=== PATIENT | male | born 1940 | race Caucasian/White ===

== ENCOUNTER 2016-12-14 22:05 | Emergency (ER) | payer MEDICARE, BC ==
[2016-12-14] MEDS ORDERED: LORazepam 2 MG/ML MDV IVPUSH ONE (22:59)
[2016-12-14] MEDS ORDERED: Sodium Chloride 0.9% 10 ML Syringe FLUSH PRN (22:59)
[2016-12-14] MEDS ORDERED: Sodium Chloride 0.9% 1,000 ML IV SCH (23:00)
[2016-12-15 01:30] VITALS: BP 137/75
--- NOTE | 2016-12-15 02:25 | EDM.PDOC ---
ED HPI GENERAL MEDICAL PROBLEM - General Chief Complaint: General Stated Complaint: ILLNESS Time Seen by Provider: 12/14/16 22:42 Source of Information: Reports: Patient History Limitations: Reports: No Limitations - History of Present Illness INITIAL COMMENTS - FREE TEXT/NARRATIVE: This patient has a history of Mnire's disease. For the past couple of hours he has had severe vertigo anytime he sits up or moves his head. He does note that he get bit by a tick a few days ago. If he lies down and keeps quiet the vertigo goes away - Related Data Allergies Allergy/AdvReac Type Severity Reaction Status Date / Time No Known Allergies Allergy Verified 12/14/16 22:11 Home Meds: Home Meds Pramipexole [Mirapex] 0.5 mg PO BID 05/19/13 [History] Albuterol [Ventolin HFA] 2 puff INH Q4H PRN 11/03/13 [History] Docusate Sodium/Sennosides [Senna Plus Tablet] 1 each PO BID PRN 11/03/13 [ History] HCTZ/Triamterene [Dyazide 25-37.5 MG] 1 cap PO DAILY 11/03/13 [History] Tiotropium [Spiriva HandiHaler] 1 cap IH DAILY 09/18/15 [History] Benzonatate [Tessalon Perles] 100 mg PO DAILY PRN 12/13/15 [History] Budesonide/Formoterol Fumarate [Symbicort 160-4.5 Mcg Inhaler] 1 puff INH DAILY 12/14/16 [History] Meclizine [Antivert] 25 mg PO Q6H PRN 12/14/16 [History] Past Medical History HEENT History: Reports: Cataract, Impaired Vision Cardiovascular History: Reports: High Cholesterol, Hypertension, SOB on Exertion Other Cardiovascular History: blood clot removed from leg -football injury Respiratory History: Reports: Bronchitis, Recurrent, COPD, Sleep Apnea, SOB Gastrointestinal History: Reports: GI Bleed, Hemorrhoids Genitourinary History: Reports: Prostate Disorder Musculoskeletal History: Reports: Fracture Other Musculoskeletal History: restless leg syndrome Neurological History: Reports: Concussion, Vertigo Other Neuro History: meneires, restless leg syndrome Psychiatric History: Reports: Anxiety Hematologic History: Reports: Blood Transfusion(s) Oncologic (Cancer) History: Reports: Prostate - Infectious Disease History Infectious Disease History: Reports: Chicken Pox - Past Surgical History HEENT Surgical History: Reports: Cataract Surgery GI Surgical History: Reports: Colonoscopy, Hernia, Inguinal Male Surgical History: Reports: Prostatectomy Social & Family History - Family History Family Medical History: Unobtainable - Tobacco Use Smoking Status *Q: Former Smoker Years of Tobacco use: 40 Packs/Tins Daily: 2 Used Tobacco, but Quit: Yes Month Tobacco Last Used: unknown Second Hand Smoke Exposure: No - Caffeine Use Caffeine Use: Reports: None - Alcohol Use Days Per Week of Alcohol Use: 0 - Recreational Drug Use Recreational Drug Use: No ED ROS GENERAL - Review of Systems Review Of Systems: ROS reveals no pertinent complaints other than HPI. ED EXAM, GENERAL - Physical Exam Exam: See Below Exam Limited By: No Limitations General Appearance: Alert, WD/WN, Moderate Distress (The patient was initially vomiting repeatedly when he came to the ER) Eye Exam: Bilateral Eye: Normal Inspection, Nystagmus (No nystagmus was seen) Ears: Normal TMs Nose: Normal Inspection Throat/Mouth: Normal Inspection, Normal Oropharynx Head: Atraumatic Neck: Normal Inspection Respiratory/Chest: Lungs Clear Cardiovascular: Regular Rate, Rhythm Neurological: Alert, Oriented, CN II-XII Intact, Normal Cognition, No Motor/ Sensory Deficits Psychiatric: Normal Affect Skin Exam: Warm, Dry Course - Vital Signs Last Recorded V/S: Last Vital Signs Temp 35.7 C 12/15/16 01:20 Pulse 63 12/15/16 01:20 Resp 16 12/15/16 01:20 BP 137/75 12/15/16 01:20 Pulse Ox 92 L 12/15/16 01:20 - Orders/Labs/Meds Orders: Active Orders 24 hr Category Date Time Status EKG Documentation Completion [RC] ASDIRECTED Care 12/14/16 23:11 Active EHRLICHIA CHAFFEENSIS, IGG&IGM [REF] Stat Lab 12/14/16 23:18 Received LYME AB SCREEN RFLX [REF] Routine Lab 12/14/16 23:18 Received Saline Lock Insert [OM.PC] Urgent Oth 12/14/16 22:55 Ordered EKG 12 Lead [EK] Urgent Ther 12/14/16 23:11 Ordered Labs: Laboratory Tests 12/14/16 12/14/16 Range/Units 22:54 23:18 WBC 8.2 (4.5-11.0) K/uL RBC 3.86 L (4.30-5.90) M/uL Hgb 13.1 (12.0-15.0) g/dL Hct 37.2 L (40.0-54.0) % MCV 96 (80-98) fL MCH 34 H (27-31) pg MCHC 35 (32-36) % Plt Count 156 (150-400) K/uL Neut % (Auto) 74 H (36-66) % Lymph % (Auto) 16 L (24-44) % [place] % (Auto) 7 H (2-6) % Eos % (Auto) 3 (2-4) % Baso % (Auto) 1 (0-1) % Sodium 141 (140-148) mmol/L Potassium 3.2 L (3.6-5.2) mmol/L Chloride 105 (100-108) mmol/L Carbon Dioxide 29 (21-32) mmol/L Anion Gap 10.2 (5.0-14.0) mmol/L BUN 27 H (7-18) mg/dL Creatinine 1.7 H (0.8-1.3) mg/dL Est Cr Clr Drug Dosing 38.12 mL/min Estimated GFR (MDRD) 40 L (>60) Glucose 149 H (74-106) mg/dL Calcium 8.5 (8.5-10.1) mg/dL Meds: Medications Discontinued Medications Generic Name Dose Route Start Last Admin Trade Name Freq PRN Reason Stop Dose Admin Sodium Chloride 1,000 mls @ 999 mls/hr 12/14/16 23:00 12/14/16 23:28 Normal Saline IV 999 mls/hr ASDIRECTED PINEDA Administration Lorazepam 1 mg 12/14/16 22:59 12/14/16 23:34 Ativan IVPUSH 12/14/16 23:00 1 mg ONETIME ONE Administration Sodium Chloride 10 ml 12/14/16 22:59 12/14/16 23:26 Saline Flush FLUSH 10 ml ASDIRECTED PRN Administration Keep Vein Open - Re-Assessments/Exams Free Text/Narrative Re-Assessment/Exam: 12/15/16 05:04 An IV was established and he received Ativan 1 mg. He also received 1 L IV normal saline. The plan was to give him some Ativan and then do a Birney Hallpike maneuver. However the emergency department got very busy with a critical patient and by the time I got back to this patient he was completely asymptomatic and ready to go home Departure - Departure Time of Disposition: 02:23 Disposition: Home, Self-Care 01 Condition: Fair Clinical Impression: Benign paroxysmal positional vertigo - Discharge Information Instructions: Vertigo, Meniere Disease Referrals: Brett Solis Sr, MD [Primary Care Provider] - Forms: ED Department Discharge Additional Instructions: If you have more vertigo then take the lorazepam 1 mg one half or one tablet every 4-6 hours. This medication can cause sedation so use with caution. Don't drink alcohol with it. #10 tablets dispensed If you have more episodes like this and see your family doctor or return to the ER - My Orders Last 24 Hours: My Active Orders 12/14/16 22:55 Saline Lock Insert [OM.PC] Urgent 12/14/16 23:11 EKG Documentation Completion [RC] ASDIRECTED EKG 12 Lead [EK] Urgent 12/14/16 23:18 EHRLICHIA CHAFFEENSIS, IGG&IGM [REF] Stat LYME AB SCREEN RFLX [REF] Routine - Assessment/Plan Last 24 Hours: My Active Orders 12/14/16 22:55 Saline Lock Insert [OM.PC] Urgent 12/14/16 23:11 EKG Documentation Completion [RC] ASDIRECTED EKG 12 Lead [EK] Urgent 12/14/16 23:18 EHRLICHIA CHAFFEENSIS, IGG&IGM [REF] Stat LYME AB SCREEN RFLX [REF] Routine
== END 2016-12-15 02:39 | disposition home or self-care (01) ==
LOC: JP.ED 22:05
DX: H81.10 Benign paroxysmal vertigo, unspecified ear (principal); I10 Essential (primary) hypertension; E78.00 Pure hypercholesterolemia, unspecified; J44.9 Chronic obstructive pulmonary disease, unspecified; F41.9 Anxiety disorder, unspecified; Z98.49 Cataract extraction status, unspecified eye; Z98.890 Other specified postprocedural states; Z79.899 Other long term (current) drug therapy; Z87.891 Personal history of nicotine dependence
CPT/HCPCS: 36415; 80048; 85025; 86618; 86666; 93005; 96361; 96374; 99284; J2060; J7040; J7050; 93010; 99283

== ENCOUNTER 2016-12-22 00:02 | Emergency (ER) | payer MEDICARE, BC ==
[2016-12-22 00:23] VITALS: BP 129/85
[2016-12-22] MEDS ORDERED: Sodium Chloride 0.9% 1,000 ML IV STA (00:50)
[2016-12-22] MEDS ORDERED: Sodium Chloride 0.9% 10 ML Syringe FLUSH PRN (00:50)
--- NOTE | 2016-12-22 00:56 | EDM.PDOC ---
ED HPI GENERAL MEDICAL PROBLEM - General Chief Complaint: Respiratory Problem Stated Complaint: DIFFICULTY BREATHING Time Seen by Provider: 12/22/16 00:45 Source of Information: Reports: Patient, RN Notes Reviewed History Limitations: Reports: No Limitations - History of Present Illness INITIAL COMMENTS - FREE TEXT/NARRATIVE: 76-year-old gentleman presents emergency department day complaint of difficulty breathing and abdominal pain, less with 24 hours he feels he has been constipated felt feverish and diaphoretic earlier today abdominal pain feels full the point where he cannot take a deep breath, denies pain Pain Score (Numeric/FACES): 0 - Related Data Allergies Allergy/AdvReac Type Severity Reaction Status Date / Time No Known Allergies Allergy Verified 12/22/16 00:31 Home Meds: Home Meds Pramipexole [Mirapex] 0.5 mg PO BID 05/19/13 [History] Albuterol [Ventolin HFA] 2 puff INH Q4H PRN 11/03/13 [History] Docusate Sodium/Sennosides [Senna Plus Tablet] 1 each PO BID PRN 11/03/13 [ History] HCTZ/Triamterene [Dyazide 25-37.5 MG] 1 cap PO DAILY 11/03/13 [History] Tiotropium [Spiriva HandiHaler] 1 cap IH DAILY 09/18/15 [History] Benzonatate [Tessalon Perles] 100 mg PO DAILY PRN 12/13/15 [History] Budesonide/Formoterol Fumarate [Symbicort 160-4.5 Mcg Inhaler] 1 puff INH DAILY 12/14/16 [History] Meclizine [Antivert] 25 mg PO Q6H PRN 12/14/16 [History] Potassium Chloride [Potassium Chloride] 20 meq PO DAILY 12/22/16 [History] Past Medical History HEENT History: Reports: Cataract, Impaired Vision Cardiovascular History: Reports: High Cholesterol, Hypertension, SOB on Exertion Other Cardiovascular History: blood clot removed from leg -football injury Respiratory History: Reports: Bronchitis, Recurrent, COPD, Sleep Apnea, SOB Gastrointestinal History: Reports: GI Bleed, Hemorrhoids Genitourinary History: Reports: Prostate Disorder Musculoskeletal History: Reports: Fracture Other Musculoskeletal History: restless leg syndrome Neurological History: Reports: Concussion, Vertigo Other Neuro History: meneires, restless leg syndrome Psychiatric History: Reports: Anxiety Hematologic History: Reports: Blood Transfusion(s) Oncologic (Cancer) History: Reports: Prostate - Infectious Disease History Infectious Disease History: Reports: Chicken Pox, Measles - Past Surgical History HEENT Surgical History: Reports: Cataract Surgery GI Surgical History: Reports: Colonoscopy, Hernia, Inguinal Male Surgical History: Reports: Prostatectomy Dermatological Surgical History: Reports: None Social & Family History - Family History Family Medical History: Unobtainable - Tobacco Use Smoking Status *Q: Never Smoker Years of Tobacco use: 40 Packs/Tins Daily: 2 Used Tobacco, but Quit: Yes Month Tobacco Last Used: unknown Second Hand Smoke Exposure: No - Caffeine Use Caffeine Use: Reports: None - Alcohol Use Days Per Week of Alcohol Use: 0 - Recreational Drug Use Recreational Drug Use: No ED ROS GENERAL - Review of Systems Review Of Systems: See Below Constitutional: Reports: Diaphoresis. Denies: Fever HEENT: Reports: No Symptoms Respiratory: Reports: Shortness of Breath Cardiovascular: Reports: No Symptoms GI/Abdominal: Reports: Abdominal Pain, Constipation. Denies: Nausea, Vomiting : Reports: No Symptoms Musculoskeletal: Reports: No Symptoms ED EXAM, GENERAL - Physical Exam Exam: See Below Exam Limited By: No Limitations General Appearance: Alert, WD/WN, No Apparent Distress Neck: Normal Inspection, Supple, Non-Tender, Full Range of Motion Respiratory/Chest: No Respiratory Distress, Lungs Clear, Normal Breath Sounds, No Accessory Muscle Use Cardiovascular: Regular Rate, Rhythm, No Murmur GI/Abdominal: Normal Bowel Sounds, Soft, Tender (Periumbilical pain) Course - Vital Signs Last Recorded V/S: Last Vital Signs Temp 95.8 F 12/22/16 00:21 Pulse 61 12/22/16 00:21 Resp 18 12/22/16 00:21 BP 129/85 12/22/16 00:21 Pulse Ox 94 L 12/22/16 00:46 - Orders/Labs/Meds Orders: Active Orders 24 hr Category Date Time Status Peripheral IV Care [RC] . DIRECTED Care 12/22/16 00:51 Active Abdomen Pelvis wo Cont [CT] Urgent Exams 12/22/16 00:50 Taken Sodium Chloride 0.9% [Saline Flush] Med 12/22/16 00:50 Active 10 ml FLUSH ASDIRECTED PRN Peripheral IV Insertion Adult [OM.PC] Urgent Oth 12/22/16 00:50 Ordered Medication Orders Sodium Chloride (Saline Flush) 10 ml FLUSH ASDIRECTED PRN PRN Reason: Keep Vein Open Last Admin: 12/22/16 01:09 Dose: 10 ml Labs: Laboratory Tests 12/22/16 12/22/16 12/22/16 Range/Units 01:02 01:02 01:02 WBC 8.3 (4.5-11.0) K/uL RBC 4.05 L (4.30-5.90) M/uL Hgb 13.6 (12.0-15.0) g/dL Hct 39.4 L (40.0-54.0) % MCV 97 (80-98) fL MCH 34 H (27-31) pg MCHC 35 (32-36) % Plt Count 180 (150-400) K/uL Neut % (Auto) 79 H (36-66) % Lymph % (Auto) 11 L (24-44) % [place] % (Auto) 8 H (2-6) % Eos % (Auto) 1 L (2-4) % Baso % (Auto) 0 (0-1) % D-Dimer, Quantitative (0.0-400.0) ng/mL Sodium 138 L (140-148) mmol/L Potassium 4.0 (3.6-5.2) mmol/L Chloride 104 (100-108) mmol/L Carbon Dioxide 27 (21-32) mmol/L Anion Gap 11.0 (5.0-14.0) mmol/L BUN 37 H (7-18) mg/dL Creatinine 1.6 H (0.8-1.3) mg/dL Est Cr Clr Drug Dosing 40.51 mL/min Estimated GFR (MDRD) 42 L (>60) Glucose 148 H (74-106) mg/dL Lactic Acid 1.5 (0.4-2.0) mmol/L Calcium 8.6 (8.5-10.1) mg/dL Total Bilirubin 0.3 (0.2-1.0) mg/dL AST 17 (15-37) U/L ALT 26 (12-78) U/L Alkaline Phosphatase 74 (46-116) U/L Troponin I < 0.017 (0.000-0.056) ng/mL Total Protein 7.4 (6.4-8.2) g/dL Albumin 3.2 L (3.4-5.0) g/dL Globulin 4.2 H (2.3-3.5) g/dL Albumin/Globulin Ratio 0.8 L (1.2-2.2) Lipase 155 (73-393) U/L Urine Color Urine Appearance Urine pH (4.5-8.0) Ur Specific [place] (1.008-1.030) Urine Protein (NEGATIVE) mg/dL Urine Glucose (UA) (NEGATIVE) mg/dL Urine Ketones (NEGATIVE) mg/dL Urine Occult Blood (NEGATIVE) Urine Nitrite (NEGAITVE) Urine Bilirubin (NEGATIVE) Urine Urobilinogen (NORMAL) mg/dL Ur Leukocyte Esterase (NEGATIVE) Urine RBC (0-5) Urine WBC (0-5) Ur Epithelial Cells Amorphous Sediment Urine Bacteria Urine Mucus 12/22/16 12/22/16 Range/Units 01:30 01:32 WBC (4.5-11.0) K/uL RBC (4.30-5.90) M/uL Hgb (12.0-15.0) g/dL Hct (40.0-54.0) % MCV (80-98) fL MCH (27-31) pg MCHC (32-36) % Plt Count (150-400) K/uL Neut % (Auto) (36-66) % Lymph % (Auto) (24-44) % [place] % (Auto) (2-6) % Eos % (Auto) (2-4) % Baso % (Auto) (0-1) % D-Dimer, Quantitative 407 H (0.0-400.0) ng/mL Sodium (140-148) mmol/L Potassium (3.6-5.2) mmol/L Chloride (100-108) mmol/L Carbon Dioxide (21-32) mmol/L Anion Gap (5.0-14.0) mmol/L BUN (7-18) mg/dL Creatinine (0.8-1.3) mg/dL Est Cr Clr Drug Dosing mL/min Estimated GFR (MDRD) (>60) Glucose (74-106) mg/dL Lactic Acid (0.4-2.0) mmol/L Calcium (8.5-10.1) mg/dL Total Bilirubin (0.2-1.0) mg/dL AST (15-37) U/L ALT (12-78) U/L Alkaline Phosphatase (46-116) U/L Troponin I (0.000-0.056) ng/mL Total Protein (6.4-8.2) g/dL Albumin (3.4-5.0) g/dL Globulin (2.3-3.5) g/dL Albumin/Globulin Ratio (1.2-2.2) Lipase (73-393) U/L Urine Color Yellow Urine Appearance Clear Urine pH 7.0 (4.5-8.0) Ur Specific [place] 1.010 (1.008-1.030) Urine Protein Negative (NEGATIVE) mg/dL Urine Glucose (UA) Normal (NEGATIVE) mg/dL Urine Ketones Negative (NEGATIVE) mg/dL Urine Occult Blood Negative (NEGATIVE) Urine Nitrite Negative (NEGAITVE) Urine Bilirubin Negative (NEGATIVE) Urine Urobilinogen Normal (NORMAL) mg/dL Ur Leukocyte Esterase Negative (NEGATIVE) Urine RBC 0-5 (0-5) Urine WBC 0-5 (0-5) Ur Epithelial Cells Rare Amorphous Sediment Not seen Urine Bacteria Rare Urine Mucus Not seen Meds: Medications Generic Name Dose Route Start Last Admin Trade Name Freq PRN Reason Stop Dose Admin Sodium Chloride 10 ml 12/22/16 00:50 12/22/16 01:09 Saline Flush FLUSH 10 ml ASDIRECTED PRN Administration Keep Vein Open Discontinued Medications Generic Name Dose Route Start Last Admin Trade Name Freq PRN Reason Stop Dose Admin Sodium Chloride 1,000 mls @ 500 mls/hr 12/22/16 00:50 12/22/16 01:07 Normal Saline IV 12/22/16 02:49 500 mls/hr .BOLUS STA Administration Departure - Departure Time of Disposition: 03:35 Disposition: Home, Self-Care 01 Condition: Good Clinical Impression: SOB (shortness of breath) - Discharge Information Forms: ED Department Discharge Additional Instructions: Continue with your regular medications, Please followup with your primary care provider in 3-5 days if not better, please call return to the emergency department with worsening of symptoms. - My Orders Last 24 Hours: My Active Orders 12/22/16 00:50 Abdomen Pelvis wo Cont [CT] Urgent Sodium Chloride 0.9% [Saline Flush] 10 ml FLUSH ASDIRECTED PRN Peripheral IV Insertion Adult [OM.PC] Urgent 12/22/16 00:51 Peripheral IV Care [RC] . DIRECTED - Assessment/Plan Last 24 Hours: My Active Orders 12/22/16 00:50 Abdomen Pelvis wo Cont [CT] Urgent Sodium Chloride 0.9% [Saline Flush] 10 ml FLUSH ASDIRECTED PRN Peripheral IV Insertion Adult [OM.PC] Urgent 12/22/16 00:51 Peripheral IV Care [RC] . DIRECTED Plan: Assessment Acuity = acute Site and laterality = abdominal pain with shortness of breath Etiology = unclear etiology Manifestations = none Location of injury = Home Lab values = CBC within normal limits creatinine elevated 1.6 chronic renal failure stage G IIIB albumin low at 2.2 consistent hypoalbuminemia, troponin was negative, d-dimer is negative, CT scan of the abdomen shows no acute process lung windows were clear Plan I did review lab work with him as well as image studies results of follow-up with primary care 3-5 days for reevaluation Patient was in agreement with the plan all questions were answered, they were instructed to return to the emergency department or call for worsening symptoms. This note was dictated using [employer] voice recognition software please call with any questions.
== END 2016-12-22 04:13 | disposition home or self-care (01) ==
LOC: JP.ED 00:02
DX: R06.02 Shortness of breath (principal); H54.7 Unspecified visual loss; E78.00 Pure hypercholesterolemia, unspecified; I10 Essential (primary) hypertension; J44.9 Chronic obstructive pulmonary disease, unspecified; Z79.899 Other long term (current) drug therapy; Z98.49 Cataract extraction status, unspecified eye
CPT/HCPCS: 36415; 74176; 80053; 81001; 83605; 83690; 84484; 85025; 85379; 99285; J7040; J7050; 99284

== ENCOUNTER 2016-12-30 02:33 | Emergency (ER) | payer MEDICARE, BC ==
[2016-12-30 03:00] VITALS: BP 142/90
[2016-12-30] MEDS ORDERED: LORazepam 1 MG Tab PO ONE (03:11)
--- NOTE | 2016-12-30 03:16 | EDM.PDOC ---
[id number] 4d LEG PAIN IN BOTH LEGS Time Seen by Provider: 12/30/16 02:55 Source of Information: Reports: Patient, Family History Limitations: Reports: No Limitations - History of Present Illness INITIAL COMMENTS - FREE TEXT/NARRATIVE: 76-year-old male is in tonight because he can't sleep, his legs are restless. He also feels like he can't take a deep breath. No fevers or chills, no cough, he was very active today. He has come in for restless legs in the past and was given gabapentin but I can't get him to say for sure whether he is still taking that or not, it is not on his list of medications. Less than 2 weeks ago he fell off his lawnmower and has been going to the chiropractor for some backache. Onset: Unknown/Unsure Severity: Mild Associated Symptoms: Reports: Shortness of Breath. Denies: Chest Pain, Cough, Headaches, Nausea/Vomiting, Weakness - Related Data Allergies Allergy/AdvReac Type Severity Reaction Status Date / Time No Known Allergies Allergy Verified 12/30/16 02:49 Home Meds: Home Meds Pramipexole [Mirapex] 1.5 mg PO BID 05/19/13 [History] Albuterol [Ventolin HFA] 2 puff INH Q4H PRN 11/03/13 [History] Docusate Sodium/Sennosides [Senna Plus Tablet] 1 each PO BID PRN 11/03/13 [ History] HCTZ/Triamterene [Dyazide 25-37.5 MG] 1 cap PO DAILY 11/03/13 [History] Tiotropium [Spiriva HandiHaler] 1 cap IH DAILY 09/18/15 [History] Benzonatate [Tessalon Perles] 100 mg PO DAILY PRN 12/13/15 [History] Budesonide/Formoterol Fumarate [Symbicort 160-4.5 Mcg Inhaler] 1 puff INH DAILY 12/14/16 [History] Meclizine [Antivert] 25 mg PO QID 12/14/16 [History] Potassium Chloride [Potassium Chloride] 20 meq PO DAILY 12/22/16 [History] Ibuprofen 200 mg PO TID 12/30/16 [History] Leuprolide [Lupron Depot 3-Month] 22.5 mg IM ASDIRECTED 12/30/16 [History] Past Medical History HEENT History: Reports: Cataract, Impaired Vision Cardiovascular History: Reports: High Cholesterol, Hypertension, SOB on Exertion Other Cardiovascular History: blood clot removed from leg -football injury Respiratory History: Reports: Bronchitis, Recurrent, COPD, Sleep Apnea, SOB Gastrointestinal History: Reports: GI Bleed, Hemorrhoids Genitourinary History: Reports: Prostate Disorder Musculoskeletal History: Reports: Fracture Other Musculoskeletal History: restless leg syndrome Neurological History: Reports: Concussion, Vertigo Other Neuro History: meneires, restless leg syndrome Psychiatric History: Reports: Anxiety Hematologic History: Reports: Blood Transfusion(s) Oncologic (Cancer) History: Reports: Prostate - Infectious Disease History Infectious Disease History: Reports: Chicken Pox, Measles - Past Surgical History HEENT Surgical History: Reports: Cataract Surgery, Other (See Below) Other HEENT Surgeries/Procedures: ear surgery GI Surgical History: Reports: Colonoscopy, Hernia, Inguinal Male Surgical History: Reports: Prostatectomy Dermatological Surgical History: Reports: None Social & Family History - Family History Family Medical History: Unobtainable - Tobacco Use Smoking Status *Q: Never Smoker Years of Tobacco use: 40 Packs/Tins Daily: 2 Used Tobacco, but Quit: Yes Month Tobacco Last Used: unknown Second Hand Smoke Exposure: No - Caffeine Use Caffeine Use: Reports: None - Alcohol Use Days Per Week of Alcohol Use: 0 - Recreational Drug Use Recreational Drug Use: No ED ROS GENERAL - Review of Systems Review Of Systems: See Below Constitutional: Denies: Fever, Chills Respiratory: Reports: Shortness of Breath. Denies: Cough Cardiovascular: Denies: Chest Pain, Syncope GI/Abdominal: Denies: Abdominal Pain, Nausea, Vomiting Musculoskeletal: Reports: Back Pain Neurological: Denies: Headache ED EXAM, GENERAL - Physical Exam Exam: See Below Exam Limited By: No Limitations General Appearance: Alert, Anxious Eye Exam: Bilateral Eye: EOMI Respiratory/Chest: No Respiratory Distress, Lungs Clear Cardiovascular: Regular Rate, Rhythm Extremities: Other (the patient seems anxious, sitting up and lying down and moving his legs frequently). No: Pedal Edema Neurological: Alert, Oriented Psychiatric: Anxious Course - Vital Signs Last Recorded V/S: Last Vital Signs Temp 98 F 12/30/16 03:00 Pulse 59 L 12/30/16 03:00 Resp 22 H 12/30/16 03:00 BP 142/90 H 12/30/16 03:00 Pulse Ox 92 L 12/30/16 03:00 - Orders/Labs/Meds Meds: Medications Discontinued Medications Generic Name Dose Route Start Last Admin Trade Name Harriett PRN Reason Stop Dose Admin Lorazepam 1 mg 12/30/16 03:11 12/30/16 03:16 Ativan PO 12/30/16 03:12 1 mg ONETIME ONE Administration - Re-Assessments/Exams Free Text/Narrative Re-Assessment/Exam: 12/30/16 03:14 I will give him 1 mg of Ativan by mouth and contact his primary care provider in the morning. He needs to discuss this with his primary provider to get a long -term plan. Departure - Departure Time of Disposition: 03:26 Disposition: Home, Self-Care 01 Condition: Good Clinical Impression: Restless legs, Anxiety - Discharge Information Instructions: Restless Legs Syndrome Referrals: Brett Solis Sr, MD [Primary Care Provider] - Forms: ED Department Discharge Care Plan Goals: Try to rest for tonight, and contact Dr. Solis in the next day or 2 regarding potential treatment for further episodes of restless legs.
== END 2016-12-30 03:26 | disposition home or self-care (01) ==
LOC: JP.ED 02:33
DX: G25.81 Restless legs syndrome (principal); F41.9 Anxiety disorder, unspecified; I10 Essential (primary) hypertension; E78.00 Pure hypercholesterolemia, unspecified; J44.9 Chronic obstructive pulmonary disease, unspecified; Z98.49 Cataract extraction status, unspecified eye; Z98.890 Other specified postprocedural states; Z79.899 Other long term (current) drug therapy; Z79.891 Long term (current) use of opiate analgesic
CPT/HCPCS: 99283; A9270

== ENCOUNTER 2017-04-02 05:50 | Day surgery (SDC) | payer MEDICARE, BC ==
[2017-04-02] MEDS ORDERED: Hydrochlorothiazide/Triamterene 25-37.5 Tab PO ONE (06:18)
[2017-04-02] MEDS ORDERED: Propofol 200 MG/20 ML SDV ONE (06:23)
[2017-04-02] MEDS ORDERED: Midazolam 1 MG/ML 2 ML SDV ONE (06:23)
[2017-04-02] MEDS ORDERED: fentaNYL 100 MCG/2 ML SDV ONE ×2 (06:23→08:02)
[2017-04-02] MEDS ORDERED: Lidocaine 0.5% 50 ML SDV ONE (06:44)
[2017-04-02] MEDS ORDERED: Lidocaine 1% with EPINEPHrine 1:100,000 50 ML MDV ONE (06:46)
[2017-04-02] MEDS ORDERED: Bupivacaine 0.5% 50 ML MDV ONE (06:46)
[2017-04-02] MEDS ORDERED: Dextrose 5%-Lactated Ringers 1,000 ML IV SCH (07:00)
[2017-04-02] MEDS ORDERED: Sodium Chloride 0.9% 10 ML Syringe FLUSH PRN (07:00)
[2017-04-02] MEDS ORDERED: ceFAZolin 2 GM in Premix Bag 1 BAG IV ONE (07:30)
[2017-04-02] MEDS ORDERED: Hydrochlorothiazide/Triamterene 25-37.5 MG Cap PO ONE (07:30)
[2017-04-02] MEDS ORDERED: Dexamethasone 4 MG/ML SDV ONE (09:22)
[2017-04-02] MEDS ORDERED: Glycopyrrolate 0.2 MG/ML 5 ML MDV ONE (09:22)
[2017-04-02] MEDS ORDERED: Succinylcholine 200 MG/10 ML MDV ONE (09:22)
[2017-04-02] MEDS ORDERED: Neostigmine Methylsulfate 1 MG/ML 5 ML Syringe ONE (09:22)
[2017-04-02] MEDS ORDERED: Rocuronium 50 MG/5 ML Vial ONE (09:22)
[2017-04-02] MEDS ORDERED: Ondansetron 4 MG/2 ML SDV ONE (09:22)
[2017-04-02 10:58] VITALS: BP 112/74
--- NOTE | 2017-04-07 13:35 | OR ---
DATE OF OPERATION: 04/02/2017 PREOPERATIVE DIAGNOSIS: Soft-tissue mass of distal left forearm. POSTOPERATIVE DIAGNOSIS: Soft-tissue mass arising from muscular fascia of distal left forearm. OPERATIVE PROCEDURE: Excision of soft-tissue mass arising from muscular fascia of left forearm ([id number]). ANESTHESIA: IV block with sedation. INDICATIONS FOR PROCEDURE: This is a 76-year-old presenting with a white firm soft-tissue mass located in the distal forearm; this was located more or less over the ulna just above the elbow. The plan is to proceed with the excision of this. The potential risks including bleeding, infection, possibility of recurrence, and the additional possibility that this might lead to something which would require additional treatment were gone over, and the patient wishes to proceed. DETAILS OF PROCEDURE: The patient was taken to the operating room, and after IV sedation was administered, IV block was placed affecting the left forearm and elbow area, that area was then prepped and draped. Over the distal left forearm overlying the ulna, a linear incision was made, and this was carried down through the skin and subcutaneous tissue. The soft- tissue mass was dissected free from the surrounding overlying soft tissues. This was a firm and almost cartilaginous texture of mass which measured 4 cm in total length. This appeared to be arising more or less out of the fascia, and this was excised at that point flush with the periosteum. The lesion came out largely intact. There were two small additional spots that were palpable that were excised. These spots appeared to be within normal subcutaneous tissue in all areas. At that point, the incision was closed with some 3-0 and 4-0 Vicryl stitches deep and then arturo for the skin, dressing was applied. The patient was taken to the recovery room in satisfactory condition. There were no evident complications. [facility]
--- NOTE | 2017-04-08 10:33 | PROC ---
DATE OF PROCEDURE: 04/02/2017 PREOPERATIVE DIAGNOSIS: Soft-tissue mass of distal left forearm. POSTOPERATIVE DIAGNOSIS: Soft-tissue mass arising from muscular fascia of distal left forearm. OPERATIVE PROCEDURE: Excision of soft-tissue mass arising from muscular fascia of left forearm ([id number]). ANESTHESIA: IV block with sedation. INDICATIONS FOR PROCEDURE: This is a 76-year-old presenting with a white firm soft-tissue mass located in the distal forearm; this was located more or less over the ulna just above the elbow. The plan is to proceed with the excision of this. The potential risks including bleeding, infection, possibility of recurrence, and the additional possibility that this might lead to something which would require additional treatment were gone over, and the patient wishes to proceed. DETAILS OF PROCEDURE: The patient was taken to the operating room, and after IV sedation was administered, IV block was placed affecting the left forearm and elbow area, that area was then prepped and draped. Over the distal left forearm overlying the ulna, a linear incision was made, this was carried down to the skin and subcutaneous tissue, the soft-tissue mass was dissected free from the surrounding overlying soft tissues. This was a firm and almost cartilaginous texture of mass which measured 4 cm in total length, this appeared to be arising more or less out of the fascia, and the was excised at that point with periosteum. The lesion came out largely intact. There were two small additional spots that were palpable that were excised. These spots appeared to be within normal subcutaneous tissue in all areas. At that point, the incision was closed with some 3 or 4-0 Vicryl stitches deep and then arturo for the skin, dressing was applied. The patient was taken to the recovery room in satisfactory condition. There were no complications. Kamaljit Richardson MD /[id number]
== END 2017-04-02 11:14 | disposition home or self-care (01) ==
LOC: JP.SDS 05:50
PROVIDERS: ATTEND Surgery
DX: R22.32 Localized swelling, mass and lump, left upper limb (principal); I10 Essential (primary) hypertension
CPT/HCPCS: 25073; 88304; A9270; J0690; J2250; J2704; J3010; J7042; J7050; J0330; J1100; J2405; J2710

== ENCOUNTER 2017-05-25 10:17 | Emergency (ER) | payer MEDICARE, BC ==
[2017-05-25] MEDS ORDERED: Ondansetron 4 MG/2 ML SDV IVPUSH ONE (11:34)
[2017-05-25] MEDS ORDERED: Sodium Chloride 0.9% 1,000 ML IV SCH ×2 (11:45→13:00)
--- NOTE | 2017-05-25 12:44 | EDM.PDOC ---
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 He feels weak, dehydrated, and has persistent nausea and vomiting and dizziness especially when his eyes are open. The symptoms are very typical for him chronically but are lasting longer than usual. No fevers or chills, no pain. No trauma or falls. - Related Data Allergies Allergy/AdvReac Type Severity Reaction Status Date / Time No Known Allergies Allergy Verified 05/25/17 11:18 Home Meds: Home Meds Pramipexole [Mirapex] 0.5 mg PO BID 05/19/13 [History] Docusate Sodium/Sennosides [Senna Plus Tablet] 1 each PO BID PRN 11/03/13 [ History] HCTZ/Triamterene [Dyazide 25-37.5 MG] 1 cap PO DAILY 11/03/13 [History] Meclizine [Antivert] 25 mg PO Q6H PRN 12/14/16 [History] Gabapentin [Neurontin] 300 mg PO BEDTIME 05/25/17 [History] Past Medical History HEENT History: Reports: Cataract, Hard of Hearing, Impaired Vision Cardiovascular History: Reports: Blood Clots/VTE/DVT, High Cholesterol, Hypertension, SOB on Exertion Other Cardiovascular History: blood clot removed from leg -football injury Respiratory History: Reports: Bronchitis, Recurrent, COPD, Sleep Apnea, SOB Gastrointestinal History: Reports: GI Bleed, Hemorrhoids Genitourinary History: Reports: Prostate Disorder Musculoskeletal History: Reports: Fracture Other Musculoskeletal History: restless leg syndrome Neurological History: Reports: Concussion, Vertigo Other Neuro History: meneires, restless leg syndrome Psychiatric History: Reports: Anxiety Hematologic History: Reports: Blood Transfusion(s) Oncologic (Cancer) History: Reports: Prostate Dermatologic History: Reports: Eczema - Infectious Disease History Infectious Disease History: Reports: Chicken Pox, Measles, Mumps, Rubella - Past Surgical History HEENT Surgical History: Reports: Cataract Surgery, Other (See Below) Other HEENT Surgeries/Procedures: ear surgery Cardiovascular Surgical History: Reports: None GI Surgical History: Reports: Colonoscopy, Hernia, Inguinal Male Surgical History: Reports: Prostatectomy Social & Family History - Family History Family Medical History: Unobtainable - Tobacco Use Smoking Status *Q: Never Smoker Years of Tobacco use: 40 Packs/Tins Daily: 2 Used Tobacco, but Quit: Yes Month Tobacco Last Used: 1999 Second Hand Smoke Exposure: No - Caffeine Use Caffeine Use: Reports: None - Alcohol Use Days Per Week of Alcohol Use: 0 - Recreational Drug Use Recreational Drug Use: No ED ROS GENERAL - Review of Systems Review Of Systems: See Below Constitutional: Reports: Malaise, Weakness. Denies: Fever, Chills HEENT: Reports: Vertigo, Other (No hearing in the left ear). Denies: Throat Pain Respiratory: Denies: Shortness of Breath Cardiovascular: Denies: Chest Pain GI/Abdominal: Reports: Nausea, Vomiting. Denies: Abdominal Pain : Reports: No Symptoms Skin: Reports: Diaphoresis Neurological: Reports: Dizziness. Denies: Headache ED EXAM, NEURO - Physical Exam Exam: See Below Exam Limited By: No Limitations General Appearance: Alert Ears: Other (Right TM is normal, left TM appears normal with a tympanostomy tube in place) Throat/Mouth: Normal Inspection Head Exam: Atraumatic Respiratory/Chest: No Respiratory Distress, Lungs Clear Cardiovascular: Regular Rate, Rhythm GI/Abdominal: Normal Bowel Sounds, Non-Tender Neurological: Alert, Oriented x 3 Psychiatric: Normal Affect, Normal Mood Skin Exam: Warm, Dry Course - Vital Signs Last Recorded V/S: Last Vital Signs Temp 95.7 F 05/25/17 11:16 Pulse 73 05/25/17 13:12 Resp 16 05/25/17 11:16 BP 145/90 H 05/25/17 13:12 Pulse Ox 94 L 05/25/17 13:12 - Orders/Labs/Meds Labs: Laboratory Tests 05/25/17 05/25/17 Range/Units 11:45 11:45 WBC 8.3 (4.5-11.0) K/uL RBC 4.68 (4.30-5.90) M/uL Hgb 15.3 H (12.0-15.0) g/dL Hct 43.2 (40.0-54.0) % MCV 92 (80-98) fL MCH 33 H (27-31) pg MCHC 35 (32-36) % Plt Count 178 (150-400) K/uL Neut % (Auto) 81 H (36-66) % Lymph % (Auto) 12 L (24-44) % [place] % (Auto) 6 (2-6) % Eos % (Auto) 1 L (2-4) % Baso % (Auto) 0 (0-1) % Sodium 133 L (140-148) mmol/L Potassium 3.8 (3.6-5.2) mmol/L Chloride 96 L (100-108) mmol/L Carbon Dioxide 28 (21-32) mmol/L Anion Gap 12.8 (5.0-14.0) mmol/L BUN 22 H (7-18) mg/dL Creatinine 1.3 (0.8-1.3) mg/dL Est Cr Clr Drug Dosing 49.85 mL/min Estimated GFR (MDRD) 54 L (>60) Glucose 133 H (74-106) mg/dL Calcium 9.5 (8.5-10.1) mg/dL Total Bilirubin 0.6 D (0.2-1.0) mg/dL AST 18 (15-37) U/L ALT 19 (12-78) U/L Alkaline Phosphatase 68 (46-116) U/L Total Protein 8.2 (6.4-8.2) g/dL Albumin 3.8 (3.4-5.0) g/dL Globulin 4.4 H (2.3-3.5) g/dL Albumin/Globulin Ratio 0.9 L (1.2-2.2) Amylase 62 (25-115) U/L Lipase 120 (73-393) U/L Meds: Medications Discontinued Medications Generic Name Dose Route Start Last Admin Trade Name Freq PRN Reason Stop Dose Admin Sodium Chloride 1,000 mls @ 1,000 mls/hr 05/25/17 11:45 05/25/17 11:45 Normal Saline IV 1,000 mls/hr ASDIRECTED PINEDA Administration Sodium Chloride 1,000 mls @ 1,000 mls/hr 05/25/17 13:00 05/25/17 12:50 Normal Saline IV 1,000 mls/hr ASDIRECTED PINEDA Administration Methylprednisolone Sodium Succinate 62.5 mg 05/25/17 12:48 05/25/17 13:02 Solu-Medrol IVPUSH 05/25/17 12:49 62.5 mg ONETIME ONE Administration Ondansetron HCl 4 mg 05/25/17 11:34 05/25/17 11:48 Zofran IVPUSH 05/25/17 11:35 4 mg ONETIME ONE Administration - Re-Assessments/Exams Free Text/Narrative Re-Assessment/Exam: 05/25/17 13:31 CBC, CMP was obtained and the patient was given 1 L normal saline along with 4 mg of Zofran. Labs returned very reassuring and the patient felt much better. He was given one additional 500 mL bolus of normal saline and 62.5 mg of IV Solu -Medrol. He will be discharged with 5 additional doses of sublingual Zofran to take as needed and can return if worsening Departure - Departure Time of Disposition: 13:54 Disposition: Home, Self-Care 01 Condition: Good Clinical Impression: Nausea and vomiting Qualifiers: Vomiting type: unspecified Vomiting Intractability: non-intractable Qualified Code(s): R11.2 - Nausea with vomiting, unspecified Mnire's syndrome or vertigo Qualifiers: Laterality: left Qualified Code(s): H81.02 - Meniere's disease, left ear - Discharge Information Instructions: Vertigo, [id number] Referrals: Brett Solis Sr, MD [Primary Care Provider] - Forms: ED Department Discharge Care Plan Goals: Rest today, increase fluids and diet as tolerated. Use sublingual Zofran for nausea if needed as prescribed, and increase activity over the next 2-3 days. Return if worsening or you develop other concerns, or consider rechecking in 3- 4 days if not improving satisfactorily.
[2017-05-25] MEDS ORDERED: methylPREDNISolone Sodium Succinate 125 MG/2 ML SDV IVPUSH ONE (12:48)
[2017-05-25 13:57] VITALS: BP 145/90
== END 2017-05-25 13:54 | disposition home or self-care (01) ==
LOC: JP.ED 10:17
DX: H81.02 Meniere's disease, left ear (principal); I10 Essential (primary) hypertension; E78.00 Pure hypercholesterolemia, unspecified; Z87.891 Personal history of nicotine dependence; Z79.899 Other long term (current) drug therapy
CPT/HCPCS: 36415; 80053; 82150; 83690; 85025; 96361; 96374; 96375; 99284; J2405; J2930; J7040

== ENCOUNTER 2018-11-23 12:01 | Inpatient (IN) | payer BC, MEDICARE, OTHER ==
--- NOTE | 2018-11-23 12:28 | EDM.PDOC ---
ED HPI GENERAL MEDICAL PROBLEM - General Chief Complaint: General Stated Complaint: PASSED OUT AND FELL Time Seen by Provider: 11/23/18 12:05 Source of Information: Reports: Patient, Family History Limitations: Reports: No Limitations - History of Present Illness INITIAL COMMENTS - FREE TEXT/NARRATIVE: 78-year-old male arrives with right posterior shoulder pain and right groin pain after falling. He was feeding the horses this morning and suddenly passed out. He laid there for about 20 minutes because of his pelvis pain but eventually managed to get up and go in the house, his brought him in for assessment. He has some pleuritic pain with breathing in the right shoulder but no shortness of breath, denies nausea or vomiting. Last night he did feel dizzy with some heartburn and nausea but that was better this morning. His main concern is his pelvis and shoulder pain. Onset: Sudden Duration: Hour(s): (Within the last hour and a half) Location: Reports: Pelvis, Upper Extremity, Right Quality: Reports: Ache Worsens with: Reports: Movement Associated Symptoms: Reports: Other (Heartburn, nausea and dizziness last night) Right Shoulder Pain Score (Numeric/FACES): 4 Right Groin Pain Score (Numeric/FACES): 2 - Related Data Allergies Allergy/AdvReac Type Severity Reaction Status Date / Time No Known Allergies Allergy Verified 05/25/17 11:18 Home Meds: Home Meds Meclizine [Antivert] 25 mg PO Q6H PRN 12/14/16 [History] HCTZ/Triamterene [Maxzide 25-37.5 MG] 1 tab PO DAILY 11/23/18 [History] Leuprolide [Lupron Depot 3-Month] 22.5 mg IM Q6M 11/23/18 [History] Sennosides/Docusate Sodium [Docusate Sodium-Senna Tablet] 2 tab PO BID 11/23/18 [History] Past Medical History HEENT History: Reports: Cataract, Hard of Hearing, Impaired Vision Cardiovascular History: Reports: Blood Clots/VTE/DVT, High Cholesterol, Hypertension, Pacemaker, SOB on Exertion Other Cardiovascular History: blood clot removed from leg -football injury Respiratory History: Reports: Bronchitis, Recurrent, COPD, Sleep Apnea, SOB Gastrointestinal History: Reports: GI Bleed, Hemorrhoids Genitourinary History: Reports: Prostate Disorder Musculoskeletal History: Reports: Fracture Other Musculoskeletal History: restless leg syndrome Neurological History: Reports: Concussion, Vertigo Other Neuro History: meneires, restless leg syndrome Psychiatric History: Reports: Anxiety Hematologic History: Reports: Blood Transfusion(s) Oncologic (Cancer) History: Reports: Prostate Dermatologic History: Reports: Eczema - Infectious Disease History Infectious Disease History: Reports: Chicken Pox, Measles, Mumps, Rubella - Past Surgical History HEENT Surgical History: Reports: Cataract Surgery, Other (See Below) Other HEENT Surgeries/Procedures: ear surgery Cardiovascular Surgical History: Reports: None GI Surgical History: Reports: Colonoscopy, Hernia, Inguinal Male Surgical History: Reports: Prostatectomy Social & Family History - Family History Family Medical History: Unobtainable - Tobacco Use Smoking Status *Q: Never Smoker - Caffeine Use Caffeine Use: Reports: None - Recreational Drug Use Recreational Drug Use: No ED ROS GENERAL - Review of Systems Review Of Systems: See Below Constitutional: Reports: Malaise. Denies: Fever, Chills HEENT: Reports: No Symptoms Respiratory: Reports: Pleuritic Chest Pain Cardiovascular: Reports: Chest Pain (Last evening), Syncope GI/Abdominal: Reports: Nausea. Denies: Vomiting Musculoskeletal: Reports: Shoulder Pain (Right-sided) Skin: Denies: Bruising, Rash Neurological: Reports: Dizziness. Denies: Headache Psychiatric: Denies: Anxiety ED EXAM, GENERAL - Physical Exam Exam: See Below Exam Limited By: No Limitations General Appearance: Alert, Anxious, Mild Distress, Other (Patient is fairly uncomfortable especially with any movement) Head: Atraumatic Neck: Supple Respiratory/Chest: No Respiratory Distress, Lungs Clear, Other (Tender to palpation on the posterior right shoulder above the scapula, no lateral compression chest pain or crepitus) Cardiovascular: Regular Rate, Rhythm GI/Abdominal: Soft, Non-Tender Extremities: Other (Tender in the right groin with palpation or with internal or external rotation of the right hip even passively) Neurological: Alert, Oriented Skin Exam: Warm, Dry Course - Vital Signs Last Recorded V/S: Last Vital Signs Temp 97.4 F 11/23/18 12:06 Pulse 82 11/23/18 15:05 Resp 18 11/23/18 15:05 BP 114/71 11/23/18 15:05 Pulse Ox 92 L 11/23/18 15:05 - Orders/Labs/Meds Orders: Medication Orders Sodium Chloride (Normal Saline) 1,000 mls @ 125 mls/hr IV ASDIRECTED PINEDA Last Admin: 11/23/18 16:40 Dose: 125 mls/hr Labs: Laboratory Tests 11/23/18 11/23/18 Range/Units 12:26 12:26 WBC 9.0 (4.5-11.0) K/uL RBC 4.06 L (4.30-5.90) M/uL Hgb 13.5 (12.0-15.0) g/dL Hct 39.6 L (40.0-54.0) % MCV 98 (80-98) fL MCH 33 H (27-31) pg MCHC 34 (32-36) % Plt Count 148 L (150-400) K/uL Neut % (Auto) 83 H (36-66) % Lymph % (Auto) 10 L (24-44) % [place] % (Auto) 6 (2-6) % Eos % (Auto) 1 L (2-4) % Baso % (Auto) 0 (0-1) % Sodium 138 L (140-148) mmol/L Potassium 3.6 (3.6-5.2) mmol/L Chloride 101 (100-108) mmol/L Carbon Dioxide 28 (21-32) mmol/L Anion Gap 12.6 (5.0-14.0) mmol/L BUN 23 H (7-18) mg/dL Creatinine 1.4 H (0.8-1.3) mg/dL Est Cr Clr Drug Dosing 43.43 mL/min Estimated GFR (MDRD) 49 L (>60) Glucose 138 H (74-106) mg/dL Calcium 9.0 (8.5-10.1) mg/dL Total Bilirubin 0.4 (0.2-1.0) mg/dL AST 20 (15-37) U/L ALT 26 (12-78) U/L Alkaline Phosphatase 69 (46-116) U/L Troponin I < 0.017 (0.000-0.056) ng/mL Total Protein 7.0 (6.4-8.2) g/dL Albumin 3.2 L (3.4-5.0) g/dL Globulin 3.8 H (2.3-3.5) g/dL Albumin/Globulin Ratio 0.8 L (1.2-2.2) Meds: Medications Generic Name Dose Route Start Last Admin Trade Name Rupertoq PRN Reason Stop Dose Admin Sodium Chloride 1,000 mls @ 125 mls/hr 11/23/18 16:45 11/23/18 16:40 Normal Saline IV 125 mls/hr ASDIRECTED PINEDA Administration Discontinued Medications Generic Name Dose Route Start Last Admin Trade Name Rupertoq PRN Reason Stop Dose Admin Ketorolac Tromethamine 60 mg 11/23/18 13:14 11/23/18 13:18 Toradol IM 11/23/18 13:15 60 mg ONETIME ONE Administration - Re-Assessments/Exams Free Text/Narrative Re-Assessment/Exam: 11/23/18 12:28 CBC, CMP and troponin were obtained. Patient was kept on cardiac monitoring which showed normal sinus rhythm. Blood pressure was normal. An x-ray of the right shoulder and pelvis were obtained. 11/23/18 13:37 CBC, CMP and troponin were reassuring. Renal function is not 100% but is consistent with past readings over the past few years. His pelvis x-ray is negative. 11/23/18 13:46 Patient was left in cardiac monitoring for his ER stay and was in a normal sinus rhythm with stable vitals for over an hour. No arrhythmias. X-ray of the pelvis and shoulder were read as normal, labs were reassuring. Patient was then given 60 mg of IM Toradol, and attempted to ambulate in the ER but was unable due to severe right pelvis pain. A CT of the pelvis was obtained to assess for occult fx. This was negative. Dr. Solis was called to admit the patient for syncope and inability to ambulate due to severe traumatic pelvic pain. Departure - Departure Time of Disposition: 14:47 Disposition: Admitted As Inpatient 68 Clinical Impression: Contusion of shoulder, right Qualifiers: Encounter type: initial encounter Qualified Code(s): S40.011A - Contusion of right shoulder, initial encounter Pelvic contusion Qualifiers: Encounter type: initial encounter Qualified Code(s): S30.0XXA - Contusion of lower back and pelvis, initial encounter Syncope Qualifiers: Syncope type: unspecified Qualified Code(s): R55 - Syncope and collapse - Discharge Information
[2018-11-23] MEDS ORDERED: Ketorolac 60 MG/2 ML SDV IM ONE (13:14)
--- NOTE | 2018-11-23 13:34 | CRLCR ---
INDICATION: Patient fell TECHNIQUE: AP pelvis. COMPARISON: none FINDINGS: The hips are anatomically aligned. There is symmetric mild to moderate osteoarthritis within both hips. The sacroiliac joints appear normal. There is no evidence of a fracture or destructive bone lesion within the pelvis. There are bilateral lymphadenectomy surgical clips within the lower pelvis. IMPRESSION: No fracture identified. Dictated by Oscar Purcell MD @ 11/23/2018 1:33:30 PM Dictated by: Oscar Purcell MD @ 11/23/2018 13:33:52 (Electronically Signed)
--- NOTE | 2018-11-23 13:37 | CRLCR ---
INDICATION: Patient fell COMPARISON: none TECHNIQUE: Three-view right shoulder FINDINGS: The AC joint and glenohumeral joint are anatomically aligned. There is no evidence of a fracture or bone erosion. The right clavicle and visualized upper right ribs appear intact. There is joint space narrowing and mild sclerosis within the AC joint. IMPRESSION: No fracture identified. Dictated by Oscar Purcell MD @ 11/23/2018 1:35:49 PM Dictated by: Oscar Purcell MD @ 11/23/2018 13:36:17 (Electronically Signed)
--- NOTE | 2018-11-23 15:09 | CRLCT ---
INDICATION: Significant pain after fall COMPARISON: Pelvis plain film from earlier today. CT of the pelvis from 12/22/2016. TECHNIQUE: CT examination of the pelvis was performed without contrast enhancement using spiral acquisition from the superior iliac crest through the pubic symphysis. Oral contrast was not administered. 2 millimeter thick sagittal, axial, and coronal reconstructions are made from the data. Please note that all CT scans at this facility use dose modulation, iterative reconstruction, and/or weight-based dosing when appropriate to reduce radiation dose to as low as reasonably achievable. FINDINGS: : There is no sign of pelvic or hip fracture. The femoral heads are in anatomic alignment with the acetabuli. There is stable mild primary osteoarthritis of both hips with mild joint space narrowing, mild sclerosis of the articular surfaces, and mild subchondral cyst formation. Mild marginal osteophyte formation is also seen. There is minimal posterior subluxation of L5 on S1. In the pelvis, the appendix is normal in appearance with no sign of inflammatory process. The loops of small bowel and colon in the pelvis are normal in appearance. The prostate is again seen to be absent, with multiple surgical clips in the pelvis bilaterally from prostatectomy. The urinary bladder is normal in appearance. There is no sign of pelvic or inguinal mass or adenopathy. IMPRESSION: No sign of acute osseous injury to the pelvis or hips. 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 Again seen are changes of prostatectomy. Please note that all CT scans at this facility use dose modulation, iterative reconstruction, and/or weight-based dosing when appropriate to reduce radiation dose to as low as reasonably achievable. Dictated by Juventino Willis MD @ Nov 23 2018 2:59PM Signed by Dr. Juventino Willis @ Nov 23 2018 3:09PM
[2018-11-23] MEDS: Sodium Chloride 0.9% 1,000 ML IV SCH ×2 (16:40→23:17)
--- NOTE | 2018-11-23 18:37 | PCM.HP ---
H&P History of Present Illness - General Date of Service: 11/23/18 Admit Problem/Dx: Admission Diagnosis/Problem Admission Diagnosis/Problem Syncope and collapse Source of Information: Patient, EMS History Limitations: Reports: No Limitations - History of Present Illness Initial Comments - Free Text/Narative: Dionte fainted this morning while feeding his horses. He fell and woke up just before hitting his head on a stomp in the barn. He did not loss bowel or urine control. He fainted one year ago and then had a pacemaker placed. He had no aura prior to the fall. He was feeling good prior to the episode. Onset of Symptoms: Reports: Today Duration of Symptoms: Reports: Other (Loss on consciousness just a few seconds.) Improves with: Reports: None Worsens with: Reports: None Associated Symptoms: Reports: No Other Symptoms Right Shoulder Pain Score (Numeric/FACES): 4 Right Groin Pain Score (Numeric/FACES): 2 - Related Data Allergies/Adverse Reactions: Allergies Allergy/AdvReac Type Severity Reaction Status Date / Time No Known Allergies Allergy Verified 05/25/17 11:18 Home Medications: Home Meds Meclizine [Antivert] 25 mg PO Q6H PRN 12/14/16 [History] HCTZ/Triamterene [Maxzide 25-37.5 MG] 1 tab PO DAILY 11/23/18 [History] Leuprolide [Lupron Depot 3-Month] 22.5 mg IM Q6M 11/23/18 [History] Sennosides/Docusate Sodium [Docusate Sodium-Senna Tablet] 2 tab PO BID 11/23/18 [History] Past Medical History HEENT History: Reports: Cataract, Hard of Hearing, Impaired Vision Cardiovascular History: Reports: Blood Clots/VTE/DVT, High Cholesterol, Hypertension, Pacemaker, SOB on Exertion Other Cardiovascular History: blood clot removed from leg -football injury Respiratory History: Reports: Bronchitis, Recurrent, COPD, Sleep Apnea, SOB Gastrointestinal History: Reports: GI Bleed, Hemorrhoids Genitourinary History: Reports: Prostate Disorder Musculoskeletal History: Reports: Fracture Other Musculoskeletal History: restless leg syndrome Neurological History: Reports: Concussion, Vertigo Other Neuro History: meneires, restless leg syndrome Psychiatric History: Reports: Anxiety Hematologic History: Reports: Blood Transfusion(s) Oncologic (Cancer) History: Reports: Prostate Dermatologic History: Reports: Eczema - Infectious Disease History Infectious Disease History: Reports: Chicken Pox, Measles, Mumps, Rubella - Past Surgical History HEENT Surgical History: Reports: Cataract Surgery, Other (See Below) Other HEENT Surgeries/Procedures: ear surgery Cardiovascular Surgical History: Reports: None GI Surgical History: Reports: Colonoscopy, Hernia, Inguinal Male Surgical History: Reports: Prostatectomy Social & Family History - Family History Family Medical History: Unobtainable - Tobacco Use Smoking Status *Q: Never Smoker Used Tobacco, but Quit: Yes Month/Year Tobacco Last Used: 1999 Second Hand Smoke Exposure: No - Caffeine Use Caffeine Use: Reports: None - Recreational Drug Use Recreational Drug Use: No H&P Review of Systems - Review of Systems: Review Of Systems: See Below General: Reports: No Symptoms HEENT: Reports: No Symptoms Pulmonary: Reports: No Symptoms Cardiovascular: Reports: No Symptoms Gastrointestinal: Reports: No Symptoms Genitourinary: Reports: No Symptoms Musculoskeletal: Reports: No Symptoms Skin: Reports: No Symptoms Psychiatric: Reports: No Symptoms Neurological: Reports: No Symptoms Immunologic: Reports: No Symptoms Exam - Exam Exam: See Below - Vital Signs Vital Signs: Last Vital Signs Temp 97.4 F 11/23/18 12:06 Pulse 82 11/23/18 15:05 Resp 18 11/23/18 15:05 BP 114/71 11/23/18 15:05 Pulse Ox 92 L 11/23/18 15:05 Weight: 183 lb 8 oz - Exam General: Alert, Oriented, 4 HEENT: PERRLA, Hearing Intact, Mucosa Moist & [place], Nares Patent, Normal Nasal Septum, Posterior Pharynx Clear, Conjunctiva Clear, EOMI, EACs Clear, TMs Clear Neck: Supple, Trachea Midline, 2 Lungs: Clear to Auscultation, Normal Respiratory Effort Cardiovascular: Regular Rate, Regular Rhythm GI/Abdominal Exam: Normal Bowel Sounds, Soft, Non-Tender, No Organomegaly, No Distention, No Abnormal Bruit, No Mass, Pelvis Stable Back Exam: Normal Inspection, Full Range of Motion, NT Extremities: Other (Pain in the right shoulder and right hip.) Peripheral Pulses: 1+: Carotid (L), Carotid (R), Radial (L), Radial (R) Skin: Warm, Dry, Intact Neurological: Cranial Nerves Intact, Reflexes Equal Bilateral Neuro Extensive - Mental Status: Alert, Oriented x3, Normal Mood/Affect, Normal Cognition Neuro Extensive - Motor, Sensory, Reflexes: CN II-XII Intact, Normal Gait, Normal Reflexes DTR: 1+: Bicep (L), Bicep (R) Psychiatric: Alert, Normal Affect, Normal Mood - Patient Data Lab Results Last 24 hrs: Laboratory Results - last 24 hr 11/23/18 11/23/18 Range/Units 12:26 12:26 WBC 9.0 (4.5-11.0) K/uL RBC 4.06 L (4.30-5.90) M/uL Hgb 13.5 (12.0-15.0) g/dL Hct 39.6 L (40.0-54.0) % MCV 98 (80-98) fL MCH 33 H (27-31) pg MCHC 34 (32-36) % Plt Count 148 L (150-400) K/uL Neut % (Auto) 83 H (36-66) % Lymph % (Auto) 10 L (24-44) % [place] % (Auto) 6 (2-6) % Eos % (Auto) 1 L (2-4) % Baso % (Auto) 0 (0-1) % Sodium 138 L (140-148) mmol/L Potassium 3.6 (3.6-5.2) mmol/L Chloride 101 (100-108) mmol/L Carbon Dioxide 28 (21-32) mmol/L Anion Gap 12.6 (5.0-14.0) mmol/L BUN 23 H (7-18) mg/dL Creatinine 1.4 H (0.8-1.3) mg/dL Est Cr Clr Drug Dosing 43.43 mL/min Estimated GFR (MDRD) 49 L (>60) Glucose 138 H (74-106) mg/dL Calcium 9.0 (8.5-10.1) mg/dL Total Bilirubin 0.4 (0.2-1.0) mg/dL AST 20 (15-37) U/L ALT 26 (12-78) U/L Alkaline Phosphatase 69 (46-116) U/L Troponin I < 0.017 (0.000-0.056) ng/mL Total Protein 7.0 (6.4-8.2) g/dL Albumin 3.2 L (3.4-5.0) g/dL Globulin 3.8 H (2.3-3.5) g/dL Albumin/Globulin Ratio 0.8 L (1.2-2.2) Result Diagrams: 11/23/18 12:26 11/23/18 12:26 Problem List Initiated/Reviewed/Updated: Yes Orders Last 24hrs: Active Orders 24 hr Category Date Time Status Admission Status [Patient Status] [ADT] Routine ADT 11/23/18 14:23 Active Cardiac Monitoring [RC] .As Directed Care 11/23/18 14:27 Active Up With Assistance [RC] ASDIRECTED Care 11/23/18 15:05 Active Vital Signs [RC] Q4H Care 11/23/18 15:05 Active Regular Diet [DIET] Diet 11/23/18 Dinner Active Sodium Chloride 0.9% [Normal Saline] 1,000 ml Med 11/23/18 16:45 Active IV ASDIRECTED SCD [Sequential Compression Device] [OM.PC] Routine Oth 11/23/18 15:06 Ordered Medication Orders Sodium Chloride (Normal Saline) 1,000 mls @ 125 mls/hr IV ASDIRECTED [facility] Last Admin: 11/23/18 16:40 Dose: 125 mls/hr Assessment/Plan Comment:: Assessment/Plan. #1. Unconscious episode. I feel he had Ventricular Fib until proven otherwise. [facility] to see if there is documentation of a cardiac dysrhythmia. I will also check his carotid arteries. He said he [facility] will get [facility] before ordering it here. #2. Injury to the right hip and right shoulder from the fall. x-rays and CT have been negative. #3. Hypertension: Stable #4. CA of the Prostate: Radical prostatectomy on Lupron #5. Restless legs syndrome: On Mirapex #6. Meniere's disease: Chronic- on Meclizine #7. COPD: #8. GERD:
[2018-11-23] MEDS ORDERED: LEUPROLIDE 22.5 MG IM SCH (19:15)
[2018-11-23] MEDS: oxyCODONE 5 MG Tab PO PRN (21:50)
[2018-11-23] MEDS: Enoxaparin 40 MG/0.4 ML Syringe SUBCUT SCH (21:50)
[2018-11-23] MEDS: Pramipexole 0.5 MG Tab PO SCH (23:07)
[2018-11-23] MEDS: Meclizine 25 MG Tab PO PRN (23:17)
[2018-11-24] MEDS: Sodium Chloride 0.9% 1,000 ML IV SCH (07:23)
[2018-11-24] MEDS ORDERED: Sodium Chloride 0.9% 1,000 ML IV SCH (07:45)
[2018-11-24] MEDS: oxyCODONE 5 MG Tab PO PRN ×2 (08:14→12:17)
[2018-11-24] MEDS: Pramipexole 0.5 MG Tab PO SCH (08:22)
[2018-11-24] MEDS: Hydrochlorothiazide/Triamterene 25-37.5 Tab PO SCH (08:22)
[2018-11-24] MEDS: PRAMIPEXOLE PO SCH ×4 (08:29→21:22)
[2018-11-24] MEDS: Enoxaparin 40 MG/0.4 ML Syringe SUBCUT SCH (18:29)
--- NOTE | 2018-11-24 20:19 | PCM.PN ---
- General Info Date of Service: 11/24/18 Functional Status: Reports: Pain Controlled - Review of Systems HEENT: Reports: No Symptoms Pulmonary: Reports: No Symptoms Cardiovascular: Reports: No Symptoms Gastrointestinal: Reports: No Symptoms Genitourinary: Reports: No Symptoms Musculoskeletal: Reports: Leg Pain, Joint Pain Skin: Reports: No Symptoms Neurological: Reports: Difficulty Walking, Gait Disturbance Psychiatric: Reports: No Symptoms - Patient Data Vitals - Most Recent: Last Vital Signs Temp 97.3 F 11/24/18 19:00 Pulse 71 11/24/18 19:00 Resp 16 11/24/18 19:00 BP 116/72 11/24/18 19:00 Pulse Ox 92 L 11/24/18 19:00 Weight - Most Recent: 183 lb 7.993 oz I&O - Last 24 Hours: Intake & Output 11/24/18 11/24/18 11/24/18 06:59 14:59 22:59 Intake Total 702 301 1862 Output Total 150 1325 350 Balance 350 -845 2068 Med Orders - Current: Current Medications Enoxaparin Sodium (Lovenox) 40 mg SUBCUT Q24H [facility] Last Admin: 11/24/18 18:29 Dose: 40 mg Sodium Chloride (Normal Saline) 1,000 mls @ 125 mls/hr IV ASDIRECTED [facility] Last Admin: 11/24/18 15:00 Dose: 125 mls/hr Meclizine HCl (Antivert) 25 mg PO Q6H PRN PRN Reason: Dizziness Last Admin: 11/23/18 23:17 Dose: 25 mg Oxycodone HCl (Oxycodone) 5 mg PO Q4H PRN PRN Reason: Pain (moderate 4-6) Last Admin: 11/24/18 12:17 Dose: 5 mg Pramipexole Dihydrochloride 0. 5 mg/ Pramipexole Dihydrochloride 0.25 mg 0.75 mg PO BID [facility] Last Admin: 11/24/18 08:29 Dose: Not Given Senna/Docusate Sodium (Senna Plus) 2 tab PO BID [facility] Last Admin: 11/24/18 08:23 Dose: 2 tab Triamterene/HCTZ (Maxzide 25-37.5 Mg) 1 each PO DAILY [facility] Last Admin: 11/24/18 08:22 Dose: 1 each Discontinued Medications Sodium Chloride (Normal Saline) 1,000 mls @ 125 mls/hr IV ASDIRECTED [facility] Last Admin: 11/24/18 07:23 Dose: 125 mls/hr Ketorolac Tromethamine (Toradol) 60 mg IM ONETIME ONE Stop: 11/23/18 13:15 Last Admin: 11/23/18 13:18 Dose: 60 mg Oxycodone HCl (Oxycodone) 5 mg PO Q6H PRN PRN Reason: Pain Last Admin: 11/24/18 08:14 Dose: 5 mg Pramipexole Dihydrochloride (Mirapex) 0.75 mg PO BID [facility] Last Admin: 11/24/18 08:22 Dose: 0.75 mg - Exam General: Alert, Oriented HEENT: Pupils Equal, Pupils Reactive, EOMI, Mucous Membr. Moist/[place] Neck: Supple Lungs: Clear to Auscultation, Normal Respiratory Effort Cardiovascular: Regular Rate, Regular Rhythm GI/Abdominal Exam: Normal Bowel Sounds, Soft, Non-Tender, No Organomegaly, No Distention, No Abnormal Bruit, No Mass, Pelvis Stable Back Exam: Normal Inspection, Full Range of Motion Extremities: Leg Pain, Other (Pain to palpation right hip and right knee.) Peripheral Pulses: 1+: Radial (L), Radial (R) Skin: Warm, Dry, Intact Neurological: No New Focal Deficit Psy/Mental Status: Alert, Normal Affect, Normal Mood - Problem List Review Problem List Initiated/Reviewed/Updated: Yes - My Orders Last 24 Hours: My Active Orders 11/23/18 21:00 Docusate Sodium/Sennosides [Senna Plus] 2 tab PO BID 11/24/18 07:24 Consult to Physical Therapy [PT Evaluation and Treatment] [CONS] Routine 11/24/18 07:45 Sodium Chloride 0.9% [Normal Saline] 1,000 ml IV ASDIRECTED 11/24/18 09:00 HCTZ/Triamterene [Maxzide 25-37.5 MG] 1 each PO DAILY Pramipexole [Mirapex] 0.75 mg PO BID 11/24/18 11:57 oxyCODONE 5 mg PO Q4H PRN 11/24/18 17:19 RT Incentive Spirometry [RC] Q1HWA - Plan Plan:: Assessment/Plan. #1. Unconscious episode. Interrogation of the pacemaker did not show a cardiac rhythm problem [facility]. The etiology of the LOC episode is unknown as before. #2. Injury to the right hip and right shoulder from the fall. x-rays and CT have been negative. Not see by ortho yet. #3. Hypertension: Stable #4. CA of the Prostate: Radical prostatectomy on Lupron #5. Restless legs syndrome: On Mirapex #6. Meniere's disease: Chronic- on Meclizine #7. COPD: #8. GERD: Home tomorrow if stable and able to walk.
[2018-11-25] MEDS: oxyCODONE 5 MG Tab PO PRN (04:18)
[2018-11-25] MEDS: Hydrochlorothiazide/Triamterene 25-37.5 Tab PO SCH (08:31)
[2018-11-25] MEDS: PRAMIPEXOLE PO SCH ×2 (08:31)
[2018-11-25] MEDS: Meclizine 25 MG Tab PO PRN (08:34)
--- NOTE | 2018-11-25 13:39 | PCM.CONS ---
H&P History of Present Illness - General Date of Service: 11/25/18 Admit Problem/Dx: Admission Diagnosis/Problem Admission Diagnosis/Problem Syncope and collapse Source of Information: Patient, Old Records, Provider History Limitations: Reports: No Limitations - History of Present Illness Initial Comments - Free Text/Narative: 78 year old with history of a syncopal episode and fall resulting in right shoulder and right hip pain. Also struck his head. Has persistent pain in shoulder and hip. Pain in posterior shoulder and pain with ROM. Also has some pain anterior shoulder with forward flexion. Minimal hip pain at rest. Increased pain with active motion and weight bearing. Hip pain in groin, over trochanter and up along anterior iliac crest. Onset of Symptoms: Reports: Sudden Improves with: Reports: Rest Worsens with: Reports: Movement Associated Symptoms: Reports: No Other Symptoms Right Shoulder Pain Score (Numeric/FACES): 6 Right Groin Pain Score (Numeric/FACES): 10 - Related Data Allergies/Adverse Reactions: Allergies Allergy/AdvReac Type Severity Reaction Status Date / Time No Known Allergies Allergy Verified 05/25/17 11:18 Home Medications: Home Meds Meclizine [Antivert] 25 mg PO Q6H PRN 12/14/16 [History] HCTZ/Triamterene [Maxzide 25-37.5 MG] 1 tab PO DAILY 11/23/18 [History] Leuprolide [Lupron Depot 3-Month] 22.5 mg IM Q6M 11/23/18 [History] Sennosides/Docusate Sodium [Docusate Sodium-Senna Tablet] 2 tab PO BID 11/23/18 [History] Past Medical History HEENT History: Reports: Cataract, Hard of Hearing, Impaired Vision Cardiovascular History: Reports: Blood Clots/VTE/DVT, High Cholesterol, Hypertension, Pacemaker, SOB on Exertion Other Cardiovascular History: blood clot removed from leg -football injury Respiratory History: Reports: Bronchitis, Recurrent, COPD, Sleep Apnea, SOB Gastrointestinal History: Reports: GI Bleed, Hemorrhoids Genitourinary History: Reports: Prostate Disorder Musculoskeletal History: Reports: Fracture Other Musculoskeletal History: restless leg syndrome Neurological History: Reports: Concussion, Vertigo Other Neuro History: meneires, restless leg syndrome Psychiatric History: Reports: Anxiety Hematologic History: Reports: Blood Transfusion(s) Oncologic (Cancer) History: Reports: Prostate Dermatologic History: Reports: Eczema - Infectious Disease History Infectious Disease History: Reports: Chicken Pox, Measles, Mumps, Rubella - Past Surgical History HEENT Surgical History: Reports: Cataract Surgery, Other (See Below) Other HEENT Surgeries/Procedures: ear surgery Cardiovascular Surgical History: Reports: None GI Surgical History: Reports: Colonoscopy, Hernia, Inguinal Male Surgical History: Reports: Prostatectomy Social & Family History - Family History Family Medical History: Unobtainable - Tobacco Use Smoking Status *Q: Never Smoker Used Tobacco, but Quit: Yes Month/Year Tobacco Last Used: 1999 Second Hand Smoke Exposure: No - Caffeine Use Caffeine Use: Reports: None - Recreational Drug Use Recreational Drug Use: No H&P Review of Systems - Review of Systems: Review Of Systems: See Below Neurological: Reports: Syncope Exam - Exam Exam: See Below - Vital Signs Vital Signs: Last Vital Signs Temp 36.2 C 11/25/18 10:54 Pulse 72 11/25/18 10:54 Resp 18 11/25/18 10:54 BP 126/75 11/25/18 10:54 Pulse Ox 94 L 11/25/18 10:54 Orthostatic Blood Pressure [ 130/72 Standing] Orthostatic Blood Pressure [ 142/79 Sitting] Orthostatic Blood Pressure [ 150/83 Supine] Weight: 83.234 kg - Exam General: Alert, Oriented, 4 HEENT: PERRLA, Conjunctiva Clear, EOMI, Hearing Intact Neck: Supple, Trachea Midline, 2 Extremities: Arm Pain, Other (Right shoulder tender over superior medial scapular border, mild tenderness over bicepital groove, pain with resisted flexion and abduction, Right hip with minimal tenderness over trochanter and mild along hip flexors, mild discomfort with passive flexion and rotation) - Patient Data Result Diagrams: 11/23/18 12:26 11/23/18 12:26 Consult PN Assessment/Plan Procedures: Procedures AGENT NOS ASSAY W/OPTIC (11/22/15) ASSAY OF AMYLASE (05/25/17) ASSAY OF LACTIC ACID (12/22/16) ASSAY OF LIPASE (05/25/17) ASSAY OF TROPONIN QUANT (12/22/16) C DIFF AMPLIFIED PROBE (11/22/15) CARDIOVASCULAR STRESS TEST (11/04/13) CARDIOVASCULAR STRESS TEST (11/04/13) CHEST X-RAY 2VW FRONTAL&LATL (02/12/16) COMPLETE CBC W/AUTO DIFF WBC (05/25/17) COMPREHEN METABOLIC PANEL (05/25/17) CT ABD & PELV W/CONTRAST (07/09/15) CT ABD & PELVIS W/O CONTRAST (12/22/16) CT HEAD/BRAIN W/O DYE (05/19/13) CT ORBIT/EAR/FOSSA W/O DYE (04/20/13) CT THORAX W/O DYE (07/01/18) DIAGNOSTIC COLONOSCOPY (12/13/15) EHRLICHIA ANTIBODY (12/14/16) ELECTROCARDIOGRAM REPORT (08/12/13) ELECTROCARDIOGRAM TRACING (12/14/16) EMERGENCY DEPT VISIT (05/25/17) EMERGENCY DEPT VISIT (12/30/16) EMERGENCY DEPT VISIT (12/22/16) EMERGENCY DEPT VISIT (12/14/16) EMERGENCY DEPT VISIT (05/28/16) EMERGENCY DEPT VISIT (05/14/16) EMERGENCY DEPT VISIT (08/12/13) EMERGENCY DEPT VISIT (08/12/13) EMERGENCY DEPT VISIT (05/19/13) EXC FOREARM SHEA DEEP 3 CM/> (04/02/17) FIBRIN DEGRADATION QUANT (12/22/16) HT MUSCLE IMAGE SPECT MULT (11/04/13) HYDRATE IV INFUSION ADD-ON (05/25/17) LEUKOCYTE ASSESSMENT FECAL (11/22/15) LYME DISEASE ANTIBODY (12/14/16) METABOLIC PANEL TOTAL CA (12/14/16) MR ANGIOGRAPHY HEAD W/O DYE (05/19/13) NEUROMUSCULAR REEDUCATION (05/19/13) OCCULT BLD FECES 1-3 TESTS (11/22/15) OT EVALUATION (05/23/15) ROUTINE VENIPUNCTURE (05/25/17) STOOL CULTR AEROBIC BACT EA (11/22/15) THER/PROPH/DIAG INJ IV PUSH (05/25/17) THER/PROPH/DIAG INJ SC/IM (05/16/16) THERAPEUTIC ACTIVITIES (05/23/15) TISSUE EXAM BY PATHOLOGIST (04/02/17) TX/PRO/DX INJ NEW DRUG ADDON (05/25/17) URINALYSIS AUTO W/SCOPE (12/22/16) (1) Fracture, scapula SNOMED Code(s): 8987736 Code(s): S42.109A - FRACTURE OF UNSP PART OF SCAPULA, UNSP SHOULDER, INIT Current Visit: Yes Qualifiers: Encounter type: initial encounter Scapula location: body Fracture type: closed Laterality: right Assessment:: X-rays reviewed, by my reading there is a minimally displaced fracture of the scapula at the superior medial tip. This is attachment site of multiple muscles including supraspinatus, levator scapula and rhomboid which is cause of pain with motion. Treatment is supportive, no intervention required. (2) Contusion of shoulder, right SNOMED Code(s): 69576694 Code(s): S40.011A - CONTUSION OF RIGHT SHOULDER, INITIAL ENCOUNTER Current Visit: Yes Qualifiers: Encounter type: initial encounter Qualified Code(s): S40.011A - Contusion of right shoulder, initial encounter (3) Pelvic contusion SNOMED Code(s): 255932731 Code(s): S30.0XXA - CONTUSION OF LOWER BACK AND PELVIS, INITIAL ENCOUNTER Current Visit: Yes Qualifiers: Encounter type: initial encounter Qualified Code(s): S30.0XXA - Contusion of lower back and pelvis, initial encounter Assessment:: X-rays reviewed no fractures identified. Pain seems to be mainly muscular in nature at this point. Treatment is again supportive. Therapy would be helpful. Problem List Initiated/Reviewed/Updated: Yes Plan: Symptomatic treatment of shoulder and hip. Avoid lifting and repetitive activity with right arm. PT would be helpful in a week or two. Hip may benefit from PT earlier. Can see as outpatient for follow up.
[2018-11-25 14:33] VITALS: BP 143/87
--- NOTE | 2018-11-25 17:50 | PCM.PN ---
- General Info Date of Service: 11/25/18 Functional Status: Reports: Pain Controlled - Review of Systems General: Reports: No Symptoms HEENT: Reports: No Symptoms Pulmonary: Reports: No Symptoms Cardiovascular: Reports: No Symptoms Gastrointestinal: Reports: No Symptoms Genitourinary: Reports: No Symptoms Musculoskeletal: Reports: No Symptoms Skin: Reports: No Symptoms Neurological: Reports: No Symptoms Psychiatric: Reports: No Symptoms - Patient Data Vitals - Most Recent: Last Vital Signs Temp 96.9 F 11/25/18 14:30 Pulse 70 11/25/18 14:30 Resp 18 11/25/18 14:30 BP 143/87 H 11/25/18 14:30 Pulse Ox 91 L 11/25/18 14:30 Orthostatic Blood Pressure [ 130/72 Standing] Orthostatic Blood Pressure [ 142/79 Sitting] Orthostatic Blood Pressure [ 150/83 Supine] Weight - Most Recent: 183 lb 7.993 oz I&O - Last 24 Hours: Intake & Output 11/25/18 11/25/18 11/25/18 06:59 14:59 22:59 Intake Total 850 296 Output Total 850 Balance 0 296 Med Orders - Current: Current Medications Enoxaparin Sodium (Lovenox) 40 mg SUBCUT Q24H [facility] Meclizine HCl (Antivert) 25 mg PO Q6H PRN PRN Reason: Dizziness Last Admin: 11/25/18 08:34 Dose: 25 mg Oxycodone HCl (Oxycodone) 5 mg PO Q4H PRN PRN Reason: Pain (moderate 4-6) Last Admin: 11/25/18 04:18 Dose: 5 mg Pramipexole Dihydrochloride 0. 5 mg/ Pramipexole Dihydrochloride 0.25 mg 0.75 mg PO BID [facility] Last Admin: 11/25/18 08:31 Dose: 0.75 mg Senna/Docusate Sodium (Senna Plus) 2 tab PO BID [facility] Last Admin: 11/25/18 08:31 Dose: 2 tab Triamterene/HCTZ (Maxzide 25-37.5 Mg) 1 each PO DAILY [facility] Last Admin: 11/25/18 08:31 Dose: 1 each Discontinued Medications Enoxaparin Sodium (Lovenox) 40 mg SUBCUT Q24H [facility] Last Admin: 11/24/18 18:29 Dose: 40 mg Sodium Chloride (Normal Saline) 1,000 mls @ 125 mls/hr IV ASDIRECTED [facility] Last Admin: 11/24/18 07:23 Dose: 125 mls/hr Sodium Chloride (Normal Saline) 1,000 mls @ 125 mls/hr IV ASDIRECTED [facility] Last Admin: 11/24/18 15:00 Dose: 125 mls/hr Ketorolac Tromethamine (Toradol) 60 mg IM ONETIME ONE Stop: 11/23/18 13:15 Last Admin: 11/23/18 13:18 Dose: 60 mg Oxycodone HCl (Oxycodone) 5 mg PO Q6H PRN PRN Reason: Pain Last Admin: 11/24/18 08:14 Dose: 5 mg Pramipexole Dihydrochloride (Mirapex) 0.75 mg PO BID [facility] Last Admin: 11/24/18 08:22 Dose: 0.75 mg - Exam General: Alert, Oriented HEENT: Pupils Equal, Pupils Reactive, EOMI, Mucous Membr. Moist/[place] Neck: Supple Lungs: Clear to Auscultation, Normal Respiratory Effort Cardiovascular: Regular Rate, Regular Rhythm GI/Abdominal Exam: Normal Bowel Sounds, Soft, Non-Tender, No Organomegaly, No Distention, No Abnormal Bruit, No Mass, Pelvis Stable Back Exam: Normal Inspection (Pain to movement right shoulder and pain right hip ), Full Range of Motion Peripheral Pulses: 1+: Radial (L), Radial (R) Skin: Warm, Dry, Intact Wound/Incisions: Healing Well Psy/Mental Status: Alert, Normal Affect, Normal Mood - Problem List Review Problem List Initiated/Reviewed/Updated: Yes - My Orders Last 24 Hours: My Active Orders 11/24/18 17:19 RT Incentive Spirometry [RC] Q1HWA 11/25/18 10:47 Consult to Physician [CONS] Routine 11/25/18 10:48 Notify Provider Consults [RC] ASDIRECTED 11/25/18 12:30 Orthostatic Vital Signs [RC] Q4H 11/25/18 18:30 Enoxaparin [Lovenox] 40 mg SUBCUT Q24H - Plan Plan:: Assessment/Plan. #1. Unconscious episode. Interrogation of the pacemaker did not show a cardiac rhythm problem [facility]. The etiology of the LOC episode is unknown as before. Possibly could be jue to the Meniere's disease. #2. Injury to the right hip and right shoulder from the fall. x-rays and CT have been negative. Other feels there is a fracture of the right shoulder which will heal without casting or immobilization. #3. Hypertension: Stable #4. CA of the Prostate: Radical prostatectomy on Lupron #5. Restless legs syndrome: On Mirapex #6. Meniere's disease: Chronic- on Meclizine. Will have him see the ENT doctor in [place]. #7. COPD: #8. GERD: Home today.
--- NOTE | 2018-11-25 17:56 | PCM.DCSUM1 ---
Discharge Summary - Hospital Course Brief History: Fell at home with a LOC episode. He had an injury to the right shoulder and right hip. He was unable to walk at the time of admission. Diagnosis: Stroke: No - Discharge Data Discharge Date: 11/25/18 Discharge Disposition: Home, Self-Care 01 Condition: Good - Patient Summary/Data Consults: Consultations 11/24/18 07:24 Consult to Physical Therapy [PT Evaluation and Treatment] [CONS] Routine Please Evaluate and Treat. PT Reason for Consult: weakness Special Instructions: safety at home This query below is only for informational purposes and is not editable. Admission Diagnosis/Problem: Syncope and collapse 11/25/18 10:47 Consult to Physician [CONS] Routine Consulting Provider: Brett Ball Courtesy Call Completed to Consulting Physician: Yes Reason for Consult: hip pain Hospital Course: Pain was controlled with Narcotics and did not have any LOC or Cardiac rhythm problems while in the hospital. Ortho saw him and felt there was a fracture of the shoulder which will heal without casting. - Patient Instructions Diet: Heart Healthy Diet Activity: As Tolerated - Discharge Plan Home Medications: Home Meds Meclizine [Antivert] 25 mg PO Q6H PRN 12/14/16 [History] HCTZ/Triamterene [Maxzide 25-37.5 MG] 1 tab PO DAILY 11/23/18 [History] Leuprolide [Lupron Depot 3-Month] 22.5 mg IM Q6M 11/23/18 [History] Sennosides/Docusate Sodium [Docusate Sodium-Senna Tablet] 2 tab PO BID 11/23/18 [History] Pramipexole [Mirapex] 0.75 mg PO BID tablet 11/25/18 [Rx] oxyCODONE 5 mg PO Q4H PRN tablet 11/25/18 [Rx] Patient Handouts: Contusion, [id number] Referrals: Brett Solis Sr, MD [Primary Care Provider] - - Discharge Summary/Plan Comment DC Time >30 min.: Yes Discharge Summary/Plan Comment: Assessment/Plan. #1. Unconscious episode. Interrogation of the pacemaker did not show a cardiac rhythm problem [facility]. The etiology of the LOC episode is unknown as before. Possibly could be jue to the Meniere's disease. #2. Injury to the right hip and right shoulder from the fall. x-rays and CT have been negative. Other feels there is a fracture of the right shoulder which will heal without casting or immobilization. #3. Hypertension: Stable #4. CA of the Prostate: Radical prostatectomy on Lupron #5. Restless legs syndrome: On Mirapex #6. Meniere's disease: Chronic- on Meclizine. Will have him see the ENT doctor in [place]. #7. COPD: #8. GERD: Home today. - General Info Date of Service: 11/25/18 Subjective Update: Had LOC episode while at home and came to the ER. He was unable to ambulate and was admitted. Functional Status: Reports: Pain Controlled - Review of Systems General: Reports: No Symptoms HEENT: Reports: No Symptoms Pulmonary: Reports: No Symptoms Cardiovascular: Reports: No Symptoms Gastrointestinal: Reports: No Symptoms Genitourinary: Reports: No Symptoms Musculoskeletal: Reports: Shoulder Pain, Leg Pain, Joint Pain Skin: Reports: No Symptoms Neurological: Reports: Difficulty Walking, Gait Disturbance Psychiatric: Reports: No Symptoms - Patient Data Vitals - Most Recent: Last Vital Signs Temp 96.9 F 11/25/18 14:30 Pulse 70 11/25/18 14:30 Resp 18 11/25/18 14:30 BP 143/87 H 11/25/18 14:30 Pulse Ox 91 L 11/25/18 14:30 Orthostatic Blood Pressure [ 130/72 Standing] Orthostatic Blood Pressure [ 142/79 Sitting] Orthostatic Blood Pressure [ 150/83 Supine] Weight - Most Recent: 183 lb 7.993 oz I&O - Last 24 hours: Intake & Output 11/25/18 11/25/18 11/25/18 06:59 14:59 22:59 Intake Total 850 296 Output Total 850 Balance 0 296 Med Orders - Current: Current Medications Enoxaparin Sodium (Lovenox) 40 mg SUBCUT Q24H [place] Meclizine HCl (Antivert) 25 mg PO Q6H PRN PRN Reason: Dizziness Last Admin: 11/25/18 08:34 Dose: 25 mg Oxycodone HCl (Oxycodone) 5 mg PO Q4H PRN PRN Reason: Pain (moderate 4-6) Last Admin: 11/25/18 04:18 Dose: 5 mg Pramipexole Dihydrochloride 0. 5 mg/ Pramipexole Dihydrochloride 0.25 mg 0.75 mg PO BID [facility] Last Admin: 11/25/18 08:31 Dose: 0.75 mg Senna/Docusate Sodium (Senna Plus) 2 tab PO BID [facility] Last Admin: 11/25/18 08:31 Dose: 2 tab Triamterene/HCTZ (Maxzide 25-37.5 Mg) 1 each PO DAILY [facility] Last Admin: 11/25/18 08:31 Dose: 1 each Discontinued Medications Enoxaparin Sodium (Lovenox) 40 mg SUBCUT Q24H [facility] Last Admin: 11/24/18 18:29 Dose: 40 mg Sodium Chloride (Normal Saline) 1,000 mls @ 125 mls/hr IV ASDIRECTED [facility] Last Admin: 11/24/18 07:23 Dose: 125 mls/hr Sodium Chloride (Normal Saline) 1,000 mls @ 125 mls/hr IV ASDIRECTED [facility] Last Admin: 11/24/18 15:00 Dose: 125 mls/hr Ketorolac Tromethamine (Toradol) 60 mg IM ONETIME ONE Stop: 11/23/18 13:15 Last Admin: 11/23/18 13:18 Dose: 60 mg Oxycodone HCl (Oxycodone) 5 mg PO Q6H PRN PRN Reason: Pain Last Admin: 11/24/18 08:14 Dose: 5 mg Pramipexole Dihydrochloride (Mirapex) 0.75 mg PO BID [facility] Last Admin: 11/24/18 08:22 Dose: 0.75 mg - Exam General: Reports: Alert, Oriented HEENT: Reports: Pupils Equal, Pupils Reactive, EOMI, Mucous Membr. Moist/[place] Neck: Reports: Supple Lungs: Reports: Clear to Auscultation, Normal Respiratory Effort Cardiovascular: Reports: Regular Rate, Regular Rhythm GI/Abdominal Exam: Normal Bowel Sounds, Soft, Non-Tender, No Organomegaly, No Distention, No Abnormal Bruit, No Mass, Pelvis Stable Back Exam: Reports: Normal Inspection, Full Range of Motion Extremities: Joint Swelling, Arm Pain, Leg Pain Skin: Reports: Warm, Dry, Intact Wound/Incisions: Reports: Healing Well Neurological: Reports: No New Focal Deficit Psy/Mental Status: Reports: Alert, Normal Affect, Normal Mood
[2018-11-25] MEDS ORDERED: Enoxaparin 40 MG/0.4 ML Syringe SUBCUT SCH (18:30)
== END 2018-11-25 18:40 | disposition home or self-care (01) | DRG 312 ==
LOC: JP.ED 12:01 → JP.MS 14:27
PROVIDERS: ADMIT Internal Medicine; ATTEND Internal Medicine
DX: R55 Syncope and collapse (principal); S40.011A Contusion of right shoulder, initial encounter; S30.0XXA Contusion of lower back and pelvis, initial encounter; S42.101A Fracture of unspecified part of scapula, right shoulder, initial encounter for closed fracture; M25.511 Pain in right shoulder; W19.XXXA Unspecified fall, initial encounter; Y93.K9 Activity, other involving animal care; Y92.008 Other place in unspecified non-institutional (private) residence as the place of occurrence of the external cause; H81.09 Meniere's disease, unspecified ear; I10 Essential (primary) hypertension; K21.9 Gastro-esophageal reflux disease without esophagitis; Z85.46 Personal history of malignant neoplasm of prostate; F41.9 Anxiety disorder, unspecified; G25.81 Restless legs syndrome; G47.30 Sleep apnea, unspecified; J44.9 Chronic obstructive pulmonary disease, unspecified; Z95.0 Presence of cardiac pacemaker; E78.00 Pure hypercholesterolemia, unspecified; Z86.718 Personal history of other venous thrombosis and embolism; H54.7 Unspecified visual loss; H91.90 Unspecified hearing loss, unspecified ear; Z90.79 Acquired absence of other genital organ(s); R10.30 Lower abdominal pain, unspecified; R10.2 Pelvic and perineal pain
CPT/HCPCS: 36415; 72170; 72192; 73030-RT; 80053; 84484; 85025; 96372; 97116-GP; 97162-GP; 97530-GP; 99284-25; A9270-GY; J1650; J1885; J7030

== ENCOUNTER 2020-02-17 20:39 | Emergency (ER) | payer BC, MEDICARE, OTHER ==
[2020-02-17 20:59] VITALS: BP 109/79; PULSE 75
--- NOTE | 2020-02-17 21:26 | EDM.PDOC ---
ED HPI GENERAL MEDICAL PROBLEM - General Chief Complaint: Upper Extremity Injury/Pain Stated Complaint: wrist pain Time Seen by Provider: 02/17/20 21:08 Source of Information: Reports: Patient, Family, RN Notes Reviewed History Limitations: Reports: No Limitations - History of Present Illness INITIAL COMMENTS - FREE TEXT/NARRATIVE: Kamaljit presents today for left wrist pain that started today. He reports the pain is steady, increases with movement and is tender to touch. He denies any injury or trauma to the hand/arm/wrist. He denies repetitive movements or activities. He denies fever, chills, nausea, vomiting or any other concerns. left wrist Pain Score (Numeric/FACES): 8 - Related Data Allergies Allergy/AdvReac Type Severity Reaction Status Date / Time No Known Allergies Allergy Verified 02/17/20 20:53 Home Meds: Home Meds Meclizine [Antivert] 25 mg PO BID 12/14/16 [History] HCTZ/Triamterene [Maxzide 25-37.5 MG] 1 tab PO DAILY PRN 11/23/18 [History] Leuprolide [Lupron Depot 3-Month] 22.5 mg IM Q6M 11/23/18 [History] Sennosides/Docusate Sodium [Docusate Sodium-Senna Tablet] 1 tab PO BID 11/23/18 [History] Pramipexole [Mirapex] 0.75 mg PO BID tablet 11/25/18 [Rx] oxyCODONE 5 mg PO Q4H PRN tablet 11/25/18 [Rx] LORazepam [Lorazepam] 0.5 mg PO BID 02/17/20 [History] Past Medical History HEENT History: Reports: Cataract, Hard of Hearing, Impaired Vision Cardiovascular History: Reports: Blood Clots/VTE/DVT, High Cholesterol, Hypertension, Pacemaker, SOB on Exertion Other Cardiovascular History: blood clot removed from leg -football injury Respiratory History: Reports: Bronchitis, Recurrent, COPD, Sleep Apnea, SOB Gastrointestinal History: Reports: GI Bleed, Hemorrhoids Genitourinary History: Reports: Prostate Disorder Musculoskeletal History: Reports: Fracture Other Musculoskeletal History: restless leg syndrome Neurological History: Reports: Concussion, Vertigo Other Neuro History: meneires, restless leg syndrome Psychiatric History: Reports: Anxiety Hematologic History: Reports: Blood Transfusion(s) Oncologic (Cancer) History: Reports: Prostate Dermatologic History: Reports: Eczema - Infectious Disease History Infectious Disease History: Reports: Chicken Pox, Pertussis (Whooping Cough) - Past Surgical History HEENT Surgical History: Reports: Cataract Surgery, Other (See Below) Other HEENT Surgeries/Procedures: ear surgery Cardiovascular Surgical History: Reports: None GI Surgical History: Reports: Colonoscopy, Hernia, Inguinal Male Surgical History: Reports: Prostatectomy Social & Family History - Family History Family Medical History: Unobtainable - Tobacco Use Smoking Status *Q: Former Smoker Used Tobacco, but Quit: Yes Month/Year Tobacco Last Used: 1999 - Caffeine Use Caffeine Use: Reports: None - Recreational Drug Use Recreational Drug Use: No Review of Systems - Review of Systems Review Of Systems: See Below Constitutional: Reports: No Symptoms Respiratory: Reports: No Symptoms Cardiovascular: Reports: No Symptoms Musculoskeletal: Reports: Arm Pain (left wrist/hand pain with onset today. No injury.), Hand Pain Skin: Reports: No Symptoms Neurological: Reports: No Symptoms ED EXAM, GENERAL - Physical Exam Exam: See Below Exam Limited By: No Limitations General Appearance: Alert, WD/WN, No Apparent Distress Respiratory/Chest: No Respiratory Distress, Lungs Clear, Normal Breath Sounds, No Accessory Muscle Use, Chest Non-Tender Cardiovascular: Normal Peripheral Pulses, Regular Rate, Rhythm, No Edema, No Murmur, No Rub Peripheral Pulses: 2+: Brachial (L), Brachial (R), Radial (L), Radial (R) Extremities: Normal Capillary Refill, Arm Pain. No: Increased Warmth (tender to 3rd,4th, 5th fingers with palpation and along ulnar aspect with palpation), Pallor, Redness Neurological: Alert, Oriented, Normal Cognition, Normal Gait, Normal Reflexes, No Motor/Sensory Deficits Psychiatric: Normal Affect, Normal Mood Skin Exam: Warm, Dry, Intact, Normal Color, No Rash. No: Cyanosis, Ecchymosis, Erythema, Increased Warmth, Rash Lymphatic: No Adenopathy Course - Vital Signs Last Recorded V/S: Last Vital Signs Temp 35.9 C L 02/17/20 20:57 Pulse 75 02/17/20 20:57 Resp 22 H 02/17/20 20:57 BP 109/79 02/17/20 20:57 Pulse Ox 96 02/17/20 20:57 - Orders/Labs/Meds Orders: Active Orders 24 hr Category Date Time Status Wrist Comp Min 3V Lt [CR] Stat Exams 02/17/20 21:25 Taken Departure - Departure Time of Disposition: 21:44 Disposition: Home, Self-Care 01 Condition: Good Clinical Impression: Carpal tunnel syndrome, left - Discharge Information *PRESCRIPTION DRUG MONITORING PROGRAM REVIEWED*: No *COPY OF PRESCRIPTION DRUG MONITORING REPORT IN PATIENT SISI: No Referrals: Brett Solis Sr, MD [Primary Care Provider] - Forms: ED Department Discharge Additional Instructions: You have been evaluated and treated for possible carpal tunnel/osteoarthritis. X-ray did not show any acute findings. Take prednisone taper as directed to help with pain. Take ibuprofen 800mg by mouth three times a day to help with pain (take with food to prevent stomach irritation). You can also take acetaminophen 1000mg by mouth three times a day for pain. Rest the left hand and wrist to help pain. You can ice the wrist for 20 minutes every hour while awake to help with pain. Elevate the wrist above your heart with resting to help with pain. Use left wrist splint until pain improves and especially at night. Follow up with Dr. Solis in 7 to 10 days for a recheck and any other needs. Sepsis Event Note (ED) - Evaluation Sepsis Screening Result: No Definite Risk - Focused Exam Vital Signs: Vital Signs Temp Pulse Resp BP Pulse Ox 02/17/20 20:57 35.9 C L 75 22 H 109/79 96 - My Orders Last 24 Hours: My Active Orders 02/17/20 21:25 Wrist Comp Min 3V Lt [CR] Stat - Assessment/Plan Last 24 Hours: My Active Orders 02/17/20 21:25 Wrist Comp Min 3V Lt [CR] Stat Assessment:: Carpal tunnel syndrome, left Plan: Patient evaluated and treated for possible carpal tunnel/osteoarthritis. X-ray did not show any acute findings. Take prednisone taper as directed to help with pain. Take ibuprofen 800mg by mouth three times a day to help with pain (take with food to prevent stomach irritation). You can also take acetaminophen 1000mg by mouth three times a day for pain. Rest the left hand and wrist to help pain. You can ice the wrist for 20 minutes every hour while awake to help with pain. Elevate the wrist above your heart with resting to help with pain. Use left wrist splint until pain improves and especially at night. Follow up with Dr. Solis in 7 to 10 days for a recheck and any other needs.
--- NOTE | 2020-02-20 09:26 | CR ---
Wrist Comp Min 3V Lt CLINICAL HISTORY: Wrist pain FINDINGS: There is no acute fracture or dislocation within the left wrist. There is minimal deformity of the distal radius. This may be from old injury. There is osteoarthritic change at the trapezial junctions. There is a mall subcortical cyst in the scaphoid. Impression: No acute fracture or dislocation Osteoarthritis
== END 2020-02-17 21:57 | disposition home or self-care (01) ==
LOC: JP.ED 20:39
DX: G56.02 Carpal tunnel syndrome, left upper limb (principal); I10 Essential (primary) hypertension; J44.9 Chronic obstructive pulmonary disease, unspecified; F41.9 Anxiety disorder, unspecified; G25.81 Restless legs syndrome; Z87.891 Personal history of nicotine dependence; Z79.899 Other long term (current) drug therapy
CPT/HCPCS: 73110-26-LT; 73110-LT; 99283-25

== ENCOUNTER 2020-08-09 13:25 | Observation (INO) | payer MEDICARE ==
[2020-08-09] MEDS ORDERED: fentaNYL 100 MCG/2 ML SDV IVPUSH ONE ×2 (14:41→16:50)
[2020-08-09] MEDS ORDERED: Ondansetron 4 MG/2 ML SDV IVPUSH ONE (14:41)
[2020-08-09] MEDS ORDERED: Lactated Ringers 1,000 ML IV SCH (14:45)
--- NOTE | 2020-08-09 14:45 | EDM.PDOC ---
ED HPI GENERAL MEDICAL PROBLEM - General Chief Complaint: Abdominal Pain Stated Complaint: EXCESSIVE VOMITTING Time Seen by Provider: 08/09/20 14:33 Source of Information: Reports: Patient, Family, RN Notes Reviewed History Limitations: Reports: No Limitations - History of Present Illness INITIAL COMMENTS - FREE TEXT/NARRATIVE: 79-year-old gentleman presents emergency department with a complaint of nausea and vomiting diarrhea, he states really over the last 24 hours has developed he feels more short of breath than usual has been wheezing and well does have a known history of COPD he is concerned he may have pneumonia has had low-grade fevers at home he is the only 1 that sick. - Related Data Allergies Allergy/AdvReac Type Severity Reaction Status Date / Time No Known Allergies Allergy Verified 02/17/20 20:53 Home Meds: Home Meds Meclizine [Antivert] 25 mg PO BID 12/14/16 [History] HCTZ/Triamterene [Maxzide 25-37.5 MG] 1 tab PO DAILY PRN 11/23/18 [History] Leuprolide [Lupron Depot 3-Month] 22.5 mg IM Q6M 11/23/18 [History] Sennosides/Docusate Sodium [Docusate Sodium-Senna Tablet] 1 tab PO BID 11/23/18 [History] Pramipexole [Mirapex] 0.75 mg PO BID tablet 11/25/18 [Rx] Albuterol Sulfate 1 ampule INH BID 08/09/20 [History] Budesonide [Pulmicort] 1 ampule INH BID 08/09/20 [History] Past Medical History HEENT History: Reports: Cataract, Hard of Hearing, Impaired Vision Cardiovascular History: Reports: Blood Clots/VTE/DVT, High Cholesterol, Hypertension, Pacemaker, SOB on Exertion Other Cardiovascular History: blood clot removed from leg -football injury Respiratory History: Reports: Bronchitis, Recurrent, COPD, Sleep Apnea, SOB Gastrointestinal History: Reports: GI Bleed, Hemorrhoids Genitourinary History: Reports: Prostate Disorder Musculoskeletal History: Reports: Fracture Other Musculoskeletal History: restless leg syndrome Neurological History: Reports: Concussion, Vertigo Other Neuro History: meneires, restless leg syndrome Psychiatric History: Reports: Anxiety Hematologic History: Reports: Blood Transfusion(s) Oncologic (Cancer) History: Reports: Prostate Dermatologic History: Reports: Eczema - Infectious Disease History Infectious Disease History: Reports: Chicken Pox, Pertussis (Whooping Cough) - Past Surgical History Head Surgeries/Procedures: Reports: None HEENT Surgical History: Reports: Cataract Surgery, Other (See Below) Other HEENT Surgeries/Procedures: ear surgery Cardiovascular Surgical History: Reports: None Respiratory Surgical History: Reports: None GI Surgical History: Reports: Colonoscopy, Hernia, Inguinal Other GI Surgeries/Procedures: fissure Male Surgical History: Reports: Prostatectomy Neurological Surgical History: Reports: None Musculoskeletal Surgical History: Reports: None Oncologic Surgical History: Reports: None Other Oncologic Surgeries/Procedures: prostectomy Dermatological Surgical History: Reports: None Social & Family History - Family History Family Medical History: Unobtainable - Tobacco Use Tobacco Use Status *Q: Former Tobacco User Years of Tobacco use: 29 Used Tobacco, but Quit: Yes Month/Year Tobacco Last Used: 04/2000 - Caffeine Use Caffeine Use: Reports: None - Recreational Drug Use Recreational Drug Use: No ED ROS GENERAL - Review of Systems Review Of Systems: See Below Constitutional: Reports: Fever, Chills HEENT: Reports: No Symptoms Respiratory: Reports: Shortness of Breath, Wheezing, Cough Cardiovascular: Reports: No Symptoms GI/Abdominal: Reports: Abdominal Pain, Diarrhea, Nausea, Vomiting : Reports: No Symptoms ED EXAM, GI/ABD - Physical Exam Exam: See Below Exam Limited By: No Limitations General Appearance: Alert, Other (Ill-appearing) Respiratory/Chest: Decreased Breath Sounds, Rhonchi, Wheezing Cardiovascular: Regular Rate, Rhythm, No Murmur GI/Abdominal Exam: Soft, Distended, Tender (Periumbilical) Course - Vital Signs Last Recorded V/S: Last Vital Signs Temp 99.2 F 08/09/20 14:07 Pulse 78 08/09/20 17:19 Resp 18 08/09/20 17:19 BP 133/79 08/09/20 17:19 Pulse Ox 88 L 08/09/20 17:19 - Orders/Labs/Meds Orders: Active Orders 24 hr Category Date Time Status EKG Documentation Completion [RC] ASDIRECTED Care 08/09/20 16:49 Active Vital Signs [RC] Q1H Care 08/09/20 14:39 Active CULTURE BLOOD [BC] Urgent Lab 08/09/20 14:40 Received CULTURE BLOOD [BC] Urgent Lab 08/09/20 15:03 Received Iopamidol [Isovue-300 (61%)] Med 08/09/20 15:00 Active 100 ml IV . DIRECTED Lactated Ringers [Ringers, Lactated] 1,000 ml Med 08/09/20 14:45 Active IV ASDIRECTED Sodium Chloride 0.9% [Normal Saline] 100 ml Med 08/09/20 15:00 Active IV ASDIRECTED Blood Culture x2 Reflex Set [OM.PC] Urgent Oth 08/09/20 14:39 Ordered EKG 12 Lead [EK] Stat Ther 08/09/20 16:49 Ordered Medication Orders Lactated Ringer's (Ringers, Lactated) 1,000 mls @ 999 mls/hr IV ASDIRECTED PINEDA Last Admin: 08/09/20 15:11 Dose: 999 mls/hr Documented by: BLADIMIR Sodium Chloride (Normal Saline) 100 mls @ 3 mls/sec IV ASDIRECTED PINEDA Last Admin: 08/09/20 15:47 Dose: 3 mls/sec Documented by: JOY Iopamidol (Isovue-300 (61%)) 100 ml IV . DIRECTED [facility] Last Admin: 08/09/20 15:47 Dose: 100 ml Documented by: JOY Labs: Laboratory Tests 08/09/20 08/09/20 08/09/20 Range/Units 14:40 14:40 14:40 WBC 4.5 (4.5-11.0) K/uL RBC 4.64 (4.30-5.90) M/uL Hgb 14.8 (12.0-15.0) g/dL Hct 44.1 (40.0-54.0) % MCV 95 (80-98) fL MCH 32 H (27-31) pg MCHC 34 (32-36) % Plt Count 166 (150-400) K/uL Neut % (Auto) 92 H (36-66) % Lymph % (Auto) 3 L (24-44) % [place]duffie % (Auto) 3 (2-6) % Eos % (Auto) 2 (2-4) % Baso % (Auto) 0 (0-1) % Sodium 137 L (140-148) mmol/L Potassium 3.8 (3.6-5.2) mmol/L Chloride 100 (100-108) mmol/L Carbon Dioxide 25 (21-32) mmol/L Anion Gap 15.8 H (5.0-14.0) mmol/L BUN 28 H (7-18) mg/dL Creatinine 1.6 H (0.8-1.3) mg/dL Est Cr Clr Drug Dosing 38.66 mL/min Estimated GFR (MDRD) 42 L (>60) Glucose 161 H (74-106) mg/dL Lactic Acid 1.4 (0.4-2.0) mmol/L Calcium 9.2 (8.5-10.1) mg/dL Total Bilirubin 0.7 D (0.2-1.0) mg/dL AST 16 (15-37) U/L ALT 16 (12-78) U/L Alkaline Phosphatase 71 (46-116) U/L Troponin I (0.000-0.056) ng/mL C-Reactive Protein 2.07 H (0.0-0.3) mg/dL Total Protein 7.4 (6.4-8.2) g/dL Albumin 3.5 (3.4-5.0) g/dL Globulin 3.9 H (2.3-3.5) g/dL Albumin/Globulin Ratio 0.9 L (1.2-2.2) Procalcitonin ng/mL Urine Color (YELLOW) Urine Appearance (CLEAR) Urine pH (5.0-8.0) Ur Specific [place] (1.008-1.030) Urine Protein (NEGATIVE) mg/dL Urine Glucose (UA) (NEGATIVE) mg/dL Urine Ketones (NEGATIVE) mg/dL Urine Occult Blood (NEGATIVE) Urine Nitrite (NEGATIVE) Urine Bilirubin (NEGATIVE) Urine Urobilinogen (0.2-1.0) EU/dL Ur Leukocyte Esterase (NEGATIVE) Urine RBC (0-5) Urine WBC (0-5) Ur Epithelial Cells Amorphous Sediment Urine Bacteria Urine Mucus Urine Other Influenza Type A RNA (NEGATIVE) RSV RNA (INAAT) (NEGATIVE) Influenza Type B RNA (NEGATIVE) SARS-CoV-2 RNA (VITALIY) (NEGATIVE) 08/09/20 08/09/20 08/09/20 Range/Units 14:40 14:40 14:43 WBC (4.5-11.0) K/uL RBC (4.30-5.90) M/uL Hgb (12.0-15.0) g/dL Hct (40.0-54.0) % MCV (80-98) fL MCH (27-31) pg MCHC (32-36) % Plt Count (150-400) K/uL Neut % (Auto) (36-66) % Lymph % (Auto) (24-44) % Mcduffie % (Auto) (2-6) % Eos % (Auto) (2-4) % Baso % (Auto) (0-1) % Sodium (140-148) mmol/L Potassium (3.6-5.2) mmol/L Chloride (100-108) mmol/L Carbon Dioxide (21-32) mmol/L Anion Gap (5.0-14.0) mmol/L BUN (7-18) mg/dL Creatinine (0.8-1.3) mg/dL Est Cr Clr Drug Dosing mL/min Estimated GFR (MDRD) (>60) Glucose (74-106) mg/dL Lactic Acid (0.4-2.0) mmol/L Calcium (8.5-10.1) mg/dL Total Bilirubin (0.2-1.0) mg/dL AST (15-37) U/L ALT (12-78) U/L Alkaline Phosphatase (46-116) U/L Troponin I < 0.017 (0.000-0.056) ng/mL C-Reactive Protein (0.0-0.3) mg/dL Total Protein (6.4-8.2) g/dL Albumin (3.4-5.0) g/dL Globulin (2.3-3.5) g/dL Albumin/Globulin Ratio (1.2-2.2) Procalcitonin 0.15 ng/mL Urine Color (YELLOW) Urine Appearance (CLEAR) Urine pH (5.0-8.0) Ur Specific [place] (1.008-1.030) Urine Protein (NEGATIVE) mg/dL Urine Glucose (UA) (NEGATIVE) mg/dL Urine Ketones (NEGATIVE) mg/dL Urine Occult Blood (NEGATIVE) Urine Nitrite (NEGATIVE) Urine Bilirubin (NEGATIVE) Urine Urobilinogen (0.2-1.0) EU/dL Ur Leukocyte Esterase (NEGATIVE) Urine RBC (0-5) Urine WBC (0-5) Ur Epithelial Cells Amorphous Sediment Urine Bacteria Urine Mucus Urine Other Influenza Type A RNA Negative (NEGATIVE) RSV RNA (INAAT) Negative (NEGATIVE) Influenza Type B RNA Negative (NEGATIVE) SARS-CoV-2 RNA (VITALIY) Negative (NEGATIVE) 08/09/20 Range/Units 16:04 WBC (4.5-11.0) K/uL RBC (4.30-5.90) M/uL Hgb (12.0-15.0) g/dL Hct (40.0-54.0) % MCV (80-98) fL MCH (27-31) pg MCHC (32-36) % Plt Count (150-400) K/uL Neut % (Auto) (36-66) % Lymph % (Auto) (24-44) % [place]duffie % (Auto) (2-6) % Eos % (Auto) (2-4) % Baso % (Auto) (0-1) % Sodium (140-148) mmol/L Potassium (3.6-5.2) mmol/L Chloride (100-108) mmol/L Carbon Dioxide (21-32) mmol/L Anion Gap (5.0-14.0) mmol/L BUN (7-18) mg/dL Creatinine (0.8-1.3) mg/dL Est Cr Clr Drug Dosing mL/min Estimated GFR (MDRD) (>60) Glucose (74-106) mg/dL Lactic Acid (0.4-2.0) mmol/L Calcium (8.5-10.1) mg/dL Total Bilirubin (0.2-1.0) mg/dL AST (15-37) U/L ALT (12-78) U/L Alkaline Phosphatase (46-116) U/L Troponin I (0.000-0.056) ng/mL C-Reactive Protein (0.0-0.3) mg/dL Total Protein (6.4-8.2) g/dL Albumin (3.4-5.0) g/dL Globulin (2.3-3.5) g/dL Albumin/Globulin Ratio (1.2-2.2) Procalcitonin ng/mL Urine Color Yellow (YELLOW) Urine Appearance Clear (CLEAR) Urine pH 5.5 (5.0-8.0) Ur Specific [place] 1.015 (1.008-1.030) Urine Protein Negative (NEGATIVE) mg/dL Urine Glucose (UA) Negative (NEGATIVE) mg/dL Urine Ketones Negative (NEGATIVE) mg/dL Urine Occult Blood Negative (NEGATIVE) Urine Nitrite Negative (NEGATIVE) Urine Bilirubin Small H (NEGATIVE) Urine Urobilinogen 0.2 (0.2-1.0) EU/dL Ur Leukocyte Esterase Negative (NEGATIVE) Urine RBC 0-5 (0-5) Urine WBC 0-5 (0-5) Ur Epithelial Cells Rare Amorphous Sediment Occasional Urine Bacteria Rare Urine Mucus Rare Urine Other Influenza Type A RNA (NEGATIVE) RSV RNA (INAAT) (NEGATIVE) Influenza Type B RNA (NEGATIVE) SARS-CoV-2 RNA (VITALIY) (NEGATIVE) Meds: Medications Generic Name Dose Route Start Last Admin Trade Name Freq PRN Reason Stop Dose Admin Lactated Ringer's 1,000 mls @ 999 mls/hr 08/09/20 14:45 08/09/20 15:11 Ringers, Lactated IV 999 mls/hr ASDIRECTED PINEDA Administration Sodium Chloride 100 mls @ 3 mls/sec 08/09/20 15:00 08/09/20 15:47 Normal Saline IV 3 mls/sec ASDIRECTED PINEDA Administration Iopamidol 100 ml 08/09/20 15:00 08/09/20 15:47 Isovue-300 (61%) IV 100 ml . DIRECTED PINEDA Administration Discontinued Medications Generic Name Dose Route Start Last Admin Trade Name Freq PRN Reason Stop Dose Admin Fentanyl 50 mcg 08/09/20 14:41 08/09/20 15:10 Sublimaze IVPUSH 08/09/20 14:42 50 mcg ONETIME ONE Administration Fentanyl 50 mcg 08/09/20 16:50 08/09/20 16:57 Sublimaze IVPUSH 08/09/20 16:51 50 mcg ONETIME ONE Administration Lactated Ringer's 1,000 mls @ 999 mls/hr 08/09/20 16:29 08/09/20 17:15 Ringers, Lactated IV 08/09/20 17:29 999 mls/hr BOLUS ONE Administration Ondansetron HCl 4 mg 08/09/20 14:41 08/09/20 15:11 Zofran IVPUSH 08/09/20 14:42 4 mg ONETIME ONE Administration Sodium Chloride 10 ml 08/09/20 14:55 08/09/20 15:46 Saline Flush FLUSH 08/09/20 14:56 10 ml ONETIME ONE Administration Departure - Departure Time of Disposition: 17:51 Disposition: Admitted As Inpatient 68 Condition: Fair Clinical Impression: Gastroenteritis - Discharge Information Referrals: Brett Solis Sr, MD [Primary Care Provider] - Forms: ED Department Discharge Sepsis Event Note (ED) - Evaluation Sepsis Screening Result: No Definite Risk - Focused Exam Vital Signs: Vital Signs Temp Pulse Resp BP Pulse Ox 08/09/20 17:19 78 18 133/79 88 L 08/09/20 16:39 78 20 123/69 93 L 08/09/20 14:07 99.2 F 79 20 96/46 L 91 L 08/09/20 14:06 99.2 F 79 20 96/46 L 91 L - My Orders Last 24 Hours: My Active Orders 08/09/20 14:39 Vital Signs [RC] Q1H Blood Culture x2 Reflex Set [OM.PC] Urgent 08/09/20 14:40 CULTURE BLOOD [BC] Urgent 08/09/20 14:45 Lactated Ringers [Ringers, Lactated] 1,000 ml IV ASDIRECTED 08/09/20 15:00 Iopamidol [Isovue-300 (61%)] 100 ml IV . DIRECTED Sodium Chloride 0.9% [Normal Saline] 100 ml IV ASDIRECTED 08/09/20 15:03 CULTURE BLOOD [BC] Urgent 08/09/20 16:49 EKG Documentation Completion [RC] ASDIRECTED EKG 12 Lead [EK] Stat - Assessment/Plan Last 24 Hours: My Active Orders 08/09/20 14:39 Vital Signs [RC] Q1H Blood Culture x2 Reflex Set [OM.PC] Urgent 08/09/20 14:40 CULTURE BLOOD [BC] Urgent 08/09/20 14:45 Lactated Ringers [Ringers, Lactated] 1,000 ml IV ASDIRECTED 08/09/20 15:00 Iopamidol [Isovue-300 (61%)] 100 ml IV . DIRECTED Sodium Chloride 0.9% [Normal Saline] 100 ml IV ASDIRECTED 08/09/20 15:03 CULTURE BLOOD [BC] Urgent 08/09/20 16:49 EKG Documentation Completion [RC] ASDIRECTED EKG 12 Lead [EK] Stat Plan: Assessment Acuity = acute Site and laterality = gastroenteritis Etiology = probably viral Manifestations = nausea vomiting diarrhea Location of injury = Home Lab values = CBC unremarkable creatinine elevated 1.6 consistent with acute renal failure stage G3 B lactic acid normal 1.[address] scan describes a generalized enteritis Plan Call discussed case with Dr. Solis primary care physician at [phone] currently agreed to come and evaluate the patient emergency department for admission This note was dictated using [employer] voice recognition software please call with any questions on syntax or grammar.
[2020-08-09] MEDS ORDERED: Iopamidol 612 MG/ML 100 ML Bottle IV SCH (15:00)
[2020-08-09] MEDS ORDERED: Sodium Chloride 0.9% 100 ML IV SCH (15:00)
[2020-08-09] MEDS: Sodium Chloride 0.9% 10 ML Syringe FLUSH ONE ×2 (15:19→15:46)
--- NOTE | 2020-08-09 15:47 | CR ---
CHEST: 2 view CLINICAL HISTORY:SOB COMPARISON:2016 FINDINGS: Patient is a permanent cardiac pacer. Heart size and pulmonary vascular normal. There is some interstitial prominence in both lung bases. This has increased somewhat since 2016. There is a granuloma right middle lobe. There are atherosclerotic changes in the aorta.. Impression: Probably cardiac pacer No acute cardiac pulmonary process Increased interstitial markings in both lung bases may represent some fibrosis
--- NOTE | 2020-08-09 16:25 | CRLCT ---
INDICATION: Periumbilical pain. COMPARISON: None TECHNIQUE: CT examination of the abdomen and pelvis was performed following the uneventful intravenous administration of 100 cc of Isovue-300. Thin section axial images were obtained from the lung bases through the pubic symphysis. Oral contrast was not administered. Please note that all CT scans at this facility use dose modulation, iterative reconstruction, and/or weight-based dosing when appropriate to reduce radiation dose to as low as reasonably achievable. 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 There are also findings of remote granulomatous infection. Heart size normal at the lung bases. Pacer. Small hiatal hernia. LIVER/BILIARY SYSTEM:The liver is normal in size and configuration. There is no focal mass and there is no intra- or extra hepatic biliary ductal dilatation.The gall bladder appears normal. ADRENALS: Normal KIDNEYS, URETERS and BLADDER:The right kidney is somewhat atrophic. 1 centimeters cyst. Left kidney presents with a 6.4 centimeter cyst but is otherwise unremarkable. Bladder as visualized appears normal. The prostate appears to be surgically absent SPLEEN:Granulomatous splenic calcifications PANCREAS: Appears normal. RETROPERITONEUM and MESENTERY: There is no mass, adenopathy or aortic aneurysm. Atherosclerotic vascular calcification GASTROINTESTINAL SYSTEM: The appendix is well seen and appears normal. The colon is somewhat prominent and fluid-filled which may be due to enteritis but there is no evidence of obstruction or findings of colitis PELVIS: No adenopathy, mass or free fluid. OSSEOUS STRUCTURES and ABDOMINAL WALL: There is an age-appropriate appearance of the osseous structures.No significant abdominal wall defect. OTHER: No free fluid or free air. IMPRESSION: 1. The appendix is well seen and appears normal. 2. Mildly abnormal GI pattern probably related to enteritis. 3. Bibasilar interstitial fibrosis pattern. This appears to be significant based on its appearance at the lung bases. 4. Other nonacute appearing findings as discussed above Please note that all CT scans at this facility use dose modulation, iterative reconstruction, and/or weight-based dosing when appropriate to reduce radiation dose to as low as reasonably achievable. Dictated by Kamaljit Dukes MD @ Aug 09 2020 4:15PM Signed by Dr. Kamaljit Dukes @ Aug 09 2020 4:24PM
[2020-08-09] MEDS ORDERED: Lactated Ringers 1,000 ML IV ONE (16:29)
[2020-08-09 17:02] LABS: CORONAVIRUS COVID-19 NAA NEGATIVE (NEGATIVE)
--- NOTE | 2020-08-09 18:01 | PCM.HP.2 ---
H&P History of Present Illness - General Date of Service: 08/09/20 Source of Information: Patient, EMS Notes Reviewed History Limitations: Reports: No Limitations - History of Present Illness Initial Comments - Free Text/Narative: Yesterday felt bloated and did not want to eat. This morning he started to vomit bringing up black material and had diarrhea the color was yellow. Started to have abdominal pain yesterday. He has no history of an ulcer of the stomach. Duration of Symptoms: Reports: Day(s): Location: Reports: Abdomen Associated Symptoms: Reports: Nausea/Vomiting, Weakness Middle Abdominal Pain Score (Numeric/FACES): 8 - Related Data Allergies/Adverse Reactions: Allergies Allergy/AdvReac Type Severity Reaction Status Date / Time No Known Allergies Allergy Verified 02/17/20 20:53 Home Medications: Home Meds Meclizine [Antivert] 25 mg PO BID 12/14/16 [History] HCTZ/Triamterene [Maxzide 25-37.5 MG] 1 tab PO DAILY PRN 11/23/18 [History] Leuprolide [Lupron Depot 3-Month] 22.5 mg IM Q6M 11/23/18 [History] Sennosides/Docusate Sodium [Docusate Sodium-Senna Tablet] 1 tab PO BID 11/23/18 [History] Pramipexole [Mirapex] 0.75 mg PO BID tablet 11/25/18 [Rx] Albuterol Sulfate 1 ampule INH BID 08/09/20 [History] Budesonide [Pulmicort] 1 ampule INH BID 08/09/20 [History] Past Medical History HEENT History: Reports: Cataract, Hard of Hearing, Impaired Vision Cardiovascular History: Reports: Blood Clots/VTE/DVT, High Cholesterol, Hypertension, Pacemaker, SOB on Exertion Other Cardiovascular History: blood clot removed from leg -football injury Respiratory History: Reports: Bronchitis, Recurrent, COPD, Sleep Apnea, SOB Gastrointestinal History: Reports: GI Bleed, Hemorrhoids Genitourinary History: Reports: Prostate Disorder Musculoskeletal History: Reports: Fracture Other Musculoskeletal History: restless leg syndrome Neurological History: Reports: Concussion, Vertigo Other Neuro History: meneires, restless leg syndrome Psychiatric History: Reports: Anxiety Hematologic History: Reports: Blood Transfusion(s) Oncologic (Cancer) History: Reports: Prostate Dermatologic History: Reports: Eczema - Infectious Disease History Infectious Disease History: Reports: Chicken Pox, Pertussis (Whooping Cough) - Past Surgical History Head Surgeries/Procedures: Reports: None HEENT Surgical History: Reports: Cataract Surgery, Other (See Below) Other HEENT Surgeries/Procedures: ear surgery Cardiovascular Surgical History: Reports: None Respiratory Surgical History: Reports: None GI Surgical History: Reports: Colonoscopy, Hernia, Inguinal Other GI Surgeries/Procedures: fissure Male Surgical History: Reports: Prostatectomy Neurological Surgical History: Reports: None Musculoskeletal Surgical History: Reports: None Oncologic Surgical History: Reports: None Other Oncologic Surgeries/Procedures: prostectomy Dermatological Surgical History: Reports: None Social & Family History - Family History Family Medical History: Unobtainable - Tobacco Use Tobacco Use Status *Q: Former Tobacco User Years of Tobacco use: 29 Used Tobacco, but Quit: Yes Month/Year Tobacco Last Used: 04/2000 - Caffeine Use Caffeine Use: Reports: None - Recreational Drug Use Recreational Drug Use: No H&P Review of Systems - Review of Systems: Review Of Systems: See Below General: Reports: Weakness, Fatigue HEENT: Reports: No Symptoms Pulmonary: Reports: No Symptoms Cardiovascular: Reports: No Symptoms Gastrointestinal: Reports: Abdominal Pain, Anorexia, Diarrhea, Decreased Appetite, Distension, Vomiting Genitourinary: Reports: No Symptoms Musculoskeletal: Reports: No Symptoms Skin: Reports: No Symptoms Exam - Exam Exam: See Below - Vital Signs Vital Signs: Last Vital Signs Temp 99.2 F 08/09/20 14:07 Pulse 78 08/09/20 17:19 Resp 18 08/09/20 17:19 BP 133/79 08/09/20 17:19 Pulse Ox 88 L 08/09/20 17:19 Weight: 195 lb - Exam General: Alert, Oriented, 4 HEENT: PERRLA, Hearing Intact, Mucosa Moist & [place], Nares Patent, Normal Nasal Septum, Posterior Pharynx Clear, Conjunctiva Clear, EOMI, EACs Clear, TMs Clear Neck: Supple, Trachea Midline, 2 Lungs: Clear to Auscultation, Normal Respiratory Effort Cardiovascular: Regular Rate, Regular Rhythm GI/Abdominal Exam: Distended, Rigid, Tender Extremities: Normal Inspection, Normal Range of Motion, Non-Tender, No Pedal Edema, Normal Capillary Refill Peripheral Pulses: 1+: Radial (L), Radial (R) Skin: Warm, Dry, Intact Neurological: Cranial Nerves Intact, Strength Equal Bilateral Neuro Extensive - Mental Status: Alert, Oriented x3 Neuro Extensive - Motor, Sensory, Reflexes: CN II-XII Intact DTR: 1+: Bicep (L), Bicep (R) Psychiatric: Alert, Normal Affect, Normal Mood - Patient Data Lab Results Last 24 hrs: Laboratory Results - last 24 hr 08/09/20 08/09/20 08/09/20 Range/Units 14:40 14:40 14:40 WBC 4.5 (4.5-11.0) K/uL RBC 4.64 (4.30-5.90) M/uL Hgb 14.8 (12.0-15.0) g/dL Hct 44.1 (40.0-54.0) % MCV 95 (80-98) fL MCH 32 H (27-31) pg MCHC 34 (32-36) % Plt Count 166 (150-400) K/uL Neut % (Auto) 92 H (36-66) % Lymph % (Auto) 3 L (24-44) % [place] % (Auto) 3 (2-6) % Eos % (Auto) 2 (2-4) % Baso % (Auto) 0 (0-1) % Sodium 137 L (140-148) mmol/L Potassium 3.8 (3.6-5.2) mmol/L Chloride 100 (100-108) mmol/L Carbon Dioxide 25 (21-32) mmol/L Anion Gap 15.8 H (5.0-14.0) mmol/L BUN 28 H (7-18) mg/dL Creatinine 1.6 H (0.8-1.3) mg/dL Est Cr Clr Drug Dosing 38.66 mL/min Estimated GFR (MDRD) 42 L (>60) Glucose 161 H (74-106) mg/dL Lactic Acid 1.4 (0.4-2.0) mmol/L Calcium 9.2 (8.5-10.1) mg/dL Total Bilirubin 0.7 D (0.2-1.0) mg/dL AST 16 (15-37) U/L ALT 16 (12-78) U/L Alkaline Phosphatase 71 (46-116) U/L Troponin I (0.000-0.056) ng/mL C-Reactive Protein 2.07 H (0.0-0.3) mg/dL Total Protein 7.4 (6.4-8.2) g/dL Albumin 3.5 (3.4-5.0) g/dL Globulin 3.9 H (2.3-3.5) g/dL Albumin/Globulin Ratio 0.9 L (1.2-2.2) Procalcitonin ng/mL Urine Color (YELLOW) Urine Appearance (CLEAR) Urine pH (5.0-8.0) Ur Specific [place] (1.008-1.030) Urine Protein (NEGATIVE) mg/dL Urine Glucose (UA) (NEGATIVE) mg/dL Urine Ketones (NEGATIVE) mg/dL Urine Occult Blood (NEGATIVE) Urine Nitrite (NEGATIVE) Urine Bilirubin (NEGATIVE) Urine Urobilinogen (0.2-1.0) EU/dL Ur Leukocyte Esterase (NEGATIVE) Urine RBC (0-5) Urine WBC (0-5) Ur Epithelial Cells Amorphous Sediment Urine Bacteria Urine Mucus Urine Other Influenza Type A RNA (NEGATIVE) RSV RNA (INAAT) (NEGATIVE) Influenza Type B RNA (NEGATIVE) SARS-CoV-2 RNA (VITALIY) (NEGATIVE) 08/09/20 08/09/20 08/09/20 Range/Units 14:40 14:40 14:43 WBC (4.5-11.0) K/uL RBC (4.30-5.90) M/uL Hgb (12.0-15.0) g/dL Hct (40.0-54.0) % MCV (80-98) fL MCH (27-31) pg MCHC (32-36) % Plt Count (150-400) K/uL Neut % (Auto) (36-66) % Lymph % (Auto) (24-44) % [place] % (Auto) (2-6) % Eos % (Auto) (2-4) % Baso % (Auto) (0-1) % Sodium (140-148) mmol/L Potassium (3.6-5.2) mmol/L Chloride (100-108) mmol/L Carbon Dioxide (21-32) mmol/L Anion Gap (5.0-14.0) mmol/L BUN (7-18) mg/dL Creatinine (0.8-1.3) mg/dL Est Cr Clr Drug Dosing mL/min Estimated GFR (MDRD) (>60) Glucose (74-106) mg/dL Lactic Acid (0.4-2.0) mmol/L Calcium (8.5-10.1) mg/dL Total Bilirubin (0.2-1.0) mg/dL AST (15-37) U/L ALT (12-78) U/L Alkaline Phosphatase (46-116) U/L Troponin I < 0.017 (0.000-0.056) ng/mL C-Reactive Protein (0.0-0.3) mg/dL Total Protein (6.4-8.2) g/dL Albumin (3.4-5.0) g/dL Globulin (2.3-3.5) g/dL Albumin/Globulin Ratio (1.2-2.2) Procalcitonin 0.15 ng/mL Urine Color (YELLOW) Urine Appearance (CLEAR) Urine pH (5.0-8.0) Ur Specific [place] (1.008-1.030) Urine Protein (NEGATIVE) mg/dL Urine Glucose (UA) (NEGATIVE) mg/dL Urine Ketones (NEGATIVE) mg/dL Urine Occult Blood (NEGATIVE) Urine Nitrite (NEGATIVE) Urine Bilirubin (NEGATIVE) Urine Urobilinogen (0.2-1.0) EU/dL Ur Leukocyte Esterase (NEGATIVE) Urine RBC (0-5) Urine WBC (0-5) Ur Epithelial Cells Amorphous Sediment Urine Bacteria Urine Mucus Urine Other Influenza Type A RNA Negative (NEGATIVE) RSV RNA (INAAT) Negative (NEGATIVE) Influenza Type B RNA Negative (NEGATIVE) SARS-CoV-2 RNA (VITALIY) Negative (NEGATIVE) 08/09/20 Range/Units 16:04 WBC (4.5-11.0) K/uL RBC (4.30-5.90) M/uL Hgb (12.0-15.0) g/dL Hct (40.0-54.0) % MCV (80-98) fL MCH (27-31) pg MCHC (32-36) % Plt Count (150-400) K/uL Neut % (Auto) (36-66) % Lymph % (Auto) (24-44) % [place] % (Auto) (2-6) % Eos % (Auto) (2-4) % Baso % (Auto) (0-1) % Sodium (140-148) mmol/L Potassium (3.6-5.2) mmol/L Chloride (100-108) mmol/L Carbon Dioxide (21-32) mmol/L Anion Gap (5.0-14.0) mmol/L BUN (7-18) mg/dL Creatinine (0.8-1.3) mg/dL Est Cr Clr Drug Dosing mL/min Estimated GFR (MDRD) (>60) Glucose (74-106) mg/dL Lactic Acid (0.4-2.0) mmol/L Calcium (8.5-10.1) mg/dL Total Bilirubin (0.2-1.0) mg/dL AST (15-37) U/L ALT (12-78) U/L Alkaline Phosphatase (46-116) U/L Troponin I (0.000-0.056) ng/mL C-Reactive Protein (0.0-0.3) mg/dL Total Protein (6.4-8.2) g/dL Albumin (3.4-5.0) g/dL Globulin (2.3-3.5) g/dL Albumin/Globulin Ratio (1.2-2.2) Procalcitonin ng/mL Urine Color Yellow (YELLOW) Urine Appearance Clear (CLEAR) Urine pH 5.5 (5.0-8.0) Ur Specific [place] 1.015 (1.008-1.030) Urine Protein Negative (NEGATIVE) mg/dL Urine Glucose (UA) Negative (NEGATIVE) mg/dL Urine Ketones Negative (NEGATIVE) mg/dL Urine Occult Blood Negative (NEGATIVE) Urine Nitrite Negative (NEGATIVE) Urine Bilirubin Small H (NEGATIVE) Urine Urobilinogen 0.2 (0.2-1.0) EU/dL Ur Leukocyte Esterase Negative (NEGATIVE) Urine RBC 0-5 (0-5) Urine WBC 0-5 (0-5) Ur Epithelial Cells Rare Amorphous Sediment Occasional Urine Bacteria Rare Urine Mucus Rare Urine Other Influenza Type A RNA (NEGATIVE) RSV RNA (INAAT) (NEGATIVE) Influenza Type B RNA (NEGATIVE) SARS-CoV-2 RNA (VITALIY) (NEGATIVE) Result Diagrams: 08/10/20 05:18 08/10/20 05:18 Sepsis Event Note - Evaluation Sepsis Screening Result: No Definite Risk - Focused Exam Vital Signs: Vital Signs Temp Pulse Resp BP Pulse Ox 08/09/20 17:19 78 18 133/79 88 L 08/09/20 16:39 78 20 123/69 93 L 08/09/20 14:07 99.2 F 79 20 96/46 L 91 L 08/09/20 14:06 99.2 F 79 20 96/46 L 91 L Problem List Initiated/Reviewed/Updated: Yes Orders Last 24hrs: Active Orders 24 hr Category Date Time Status EKG Documentation Completion [RC] ASDIRECTED Care 08/09/20 16:49 Active Vital Signs [RC] Q1H Care 08/09/20 14:39 Active CULTURE BLOOD [BC] Urgent Lab 08/09/20 14:40 Received CULTURE BLOOD [BC] Urgent Lab 08/09/20 15:03 Received Iopamidol [Isovue-300 (61%)] Med 08/09/20 15:00 Active 100 ml IV . DIRECTED Lactated Ringers [Ringers, Lactated] 1,000 ml Med 08/09/20 14:45 Active IV ASDIRECTED Sodium Chloride 0.9% [Normal Saline] 100 ml Med 08/09/20 15:00 Active IV ASDIRECTED Blood Culture x2 Reflex Set [OM.PC] Urgent Oth 08/09/20 14:39 Ordered EKG 12 Lead [EK] Stat Ther 08/09/20 16:49 Ordered Medication Orders Lactated Ringer's (Ringers, Lactated) 1,000 mls @ 999 mls/hr IV ASDIRECTED [facility] Last Admin: 08/09/20 15:11 Dose: 999 mls/hr Documented by: BLADIMIR Sodium Chloride (Normal Saline) 100 mls @ 3 mls/sec IV ASDIRECTED [facility] Last Admin: 08/09/20 15:47 Dose: 3 mls/sec Documented by: JOY Iopamidol (Isovue-300 (61%)) 100 ml IV . DIRECTED [facility] Last Admin: 08/09/20 15:47 Dose: 100 ml Documented by: JOY Assessment/Plan Comment:: Assessment/Plan #1. Abdominal pain with N and V and bringing us black vomitus. Will check the vomit material for blood consider a EGD in the morning. Will hydrate. #2. Dehydration: Fluids given while in the ER will continue with fluids. #3. History of Insomnia: #4. Vertigo: Meniere's disease #5. COPD #6. HTN: By History - Mortality Measure Prognosis:: Good
[2020-08-09] MEDS ORDERED: Ondansetron 4 MG/2 ML SDV IVPUSH PRN (20:01)
[2020-08-09] MEDS ORDERED: Ketorolac 30 MG/ML SDV IM PRN (20:01)
[2020-08-09] MEDS: Dextrose 5%-0.9% NaCl 1,000 ML IV SCH (20:13)
[2020-08-09] MEDS ORDERED: Acetaminophen 325 MG Tab PO PRN (21:53)
[2020-08-09] MEDS: Pramipexole 0.25 MG Tab PO SCH (22:10)
[2020-08-09] MEDS: Budesonide 0.25 MG/2 ML Neb Susp INH SCH (22:11)
[2020-08-09] MEDS: Meclizine 25 MG Tab PO SCH (22:11)
[2020-08-09] MEDS: Albuterol 0.083% 2.5 MG/3 ML Neb Soln INH SCH (22:12)
[2020-08-09] MEDS: HYDROmorphone 0.5 MG/0.5 ML Syringe IVPUSH PRN (23:53)
[2020-08-10] MEDS: Dextrose 5%-0.9% NaCl 1,000 ML IV SCH ×2 (06:27→15:16)
[2020-08-10] MEDS ORDERED: fentaNYL 100 MCG/2 ML SDV ONE (07:45)
[2020-08-10] MEDS ORDERED: Propofol 200 MG/20 ML SDV ONE (07:45)
[2020-08-10] MEDS: Meclizine 25 MG Tab PO SCH (09:19)
[2020-08-10] MEDS: Pramipexole 0.25 MG Tab PO SCH (09:28)
[2020-08-10] MEDS: Budesonide 0.25 MG/2 ML Neb Susp INH SCH ×2 (10:49→20:12)
[2020-08-10] MEDS: Albuterol 0.083% 2.5 MG/3 ML Neb Soln INH SCH (10:49)
--- NOTE | 2020-08-10 10:53 | PROC ---
DATE OF PROCEDURE: 08/10/2020 SURGEON: Brett Solis MD INDICATIONS: Kamaljit is a 79-year-old male who comes in yesterday because of vomiting up blood and having abdominal pain. He also had diarrhea. During the evaluation in the emergency room, the guaiac from his vomitus was positive and he was having abdominal pain in the epigastric area. Esophagogastroduodenoscopy was scheduled at that time. PROCEDURE IN DETAIL: The risks and benefits were explained to the patient and was taken to the OR. Anesthesia was given by nurse health safety and environment manager. The Olympus 180 scope was used, was placed into the pharynx without difficulty into the esophagus and advanced under direct vision. Immediately upon getting to the distal esophagus, noted significant erythema of the mucosa. The tube was advanced into the end of the stomach and then into the first and second part of the small intestine. There was mild erythema noted throughout the duodenal area. The tube was brought back into the stomach. Greater and lesser curvatures were unremarkable. Air was insufflated and we got a good look at the fundus and GE junction was quite large. We then withdrew air from the stomach, and we went back into the esophagus which reveals significant erythema. Biopsies were done of this area. The remainder of the esophagus was unremarkable. The vocal cords were unremarkable as well. The tube was removed. The patient tolerated the procedure well. PREOPERATIVE DIAGNOSIS: Vomiting up blood with abdominal pain. POSTOPERATIVE DIAGNOSIS: Severe distal esophagitis with erythema of the mucosa. Brett Solis MD /[id number]
[2020-08-10] MEDS: HYDROmorphone 0.5 MG/0.5 ML Syringe IVPUSH PRN (11:48)
[2020-08-10] MEDS ORDERED: Albuterol 0.083% 2.5 MG/3 ML Neb Soln NEB PRN (13:58)
[2020-08-10] MEDS ORDERED: HYDROmorphone 0.5 MG/0.5 ML Syringe IVPUSH ONE (14:15)
--- NOTE | 2020-08-10 14:43 | PCM.PN ---
- General Info Date of Service: 08/10/20 Subjective Update: I did a EGD this morning and has severe distal esophagus irritation and Bx is pending. He dontinues to have pain in the lower esophagus. - Review of Systems General: Reports: Weakness HEENT: Reports: No Symptoms Pulmonary: Reports: Cough Cardiovascular: Reports: No Symptoms Gastrointestinal: Reports: Abdominal Pain, Difficulty Swallowing Genitourinary: Reports: No Symptoms Musculoskeletal: Reports: No Symptoms Skin: Reports: No Symptoms Neurological: Reports: No Symptoms Psychiatric: Reports: No Symptoms - Patient Data Vitals - Most Recent: Last Vital Signs Temp 98.6 F 08/10/20 12:00 Pulse 71 08/10/20 12:00 Resp 18 08/10/20 12:00 BP 86/48 L 08/10/20 12:00 Pulse Ox 95 08/10/20 12:00 Weight - Most Recent: 195 lb 0.017 oz I&O - Last 24 Hours: Intake & Output 08/09/20 08/10/20 08/10/20 22:59 06:59 14:59 Intake Total 913 750 Output Total 300 500 Balance -300 913 250 Lab Results Last 24 Hours: Laboratory Results - last 24 hr 08/09/20 08/09/20 08/09/20 Range/Units 14:40 14:40 14:40 WBC 4.5 (4.5-11.0) K/uL RBC 4.64 (4.30-5.90) M/uL Hgb 14.8 (12.0-15.0) g/dL Hct 44.1 (40.0-54.0) % MCV 95 (80-98) fL MCH 32 H (27-31) pg MCHC 34 (32-36) % Plt Count 166 (150-400) K/uL Neut % (Auto) 92 H (36-66) % Lymph % (Auto) 3 L (24-44) % Bryan % (Auto) 3 (2-6) % Eos % (Auto) 2 (2-4) % Baso % (Auto) 0 (0-1) % Sodium 137 L (140-148) mmol/L Potassium 3.8 (3.6-5.2) mmol/L Chloride 100 (100-108) mmol/L Carbon Dioxide 25 (21-32) mmol/L Anion Gap 15.8 H (5.0-14.0) mmol/L BUN 28 H (7-18) mg/dL Creatinine 1.6 H (0.8-1.3) mg/dL Est Cr Clr Drug Dosing 38.66 mL/min Estimated GFR (MDRD) 42 L (>60) Glucose 161 H (74-106) mg/dL Lactic Acid 1.4 (0.4-2.0) mmol/L Calcium 9.2 (8.5-10.1) mg/dL Total Bilirubin 0.7 D (0.2-1.0) mg/dL AST 16 (15-37) U/L ALT 16 (12-78) U/L Alkaline Phosphatase 71 (46-116) U/L Troponin I (0.000-0.056) ng/mL C-Reactive Protein 2.07 H (0.0-0.3) mg/dL Total Protein 7.4 (6.4-8.2) g/dL Albumin 3.5 (3.4-5.0) g/dL Globulin 3.9 H (2.3-3.5) g/dL Albumin/Globulin Ratio 0.9 L (1.2-2.2) Procalcitonin ng/mL Urine Color (YELLOW) Urine Appearance (CLEAR) Urine pH (5.0-8.0) Ur Specific [place] (1.008-1.030) Urine Protein (NEGATIVE) mg/dL Urine Glucose (UA) (NEGATIVE) mg/dL Urine Ketones (NEGATIVE) mg/dL Urine Occult Blood (NEGATIVE) Urine Nitrite (NEGATIVE) Urine Bilirubin (NEGATIVE) Urine Urobilinogen (0.2-1.0) EU/dL Ur Leukocyte Esterase (NEGATIVE) Urine RBC (0-5) Urine WBC (0-5) Ur Epithelial Cells Amorphous Sediment Urine Bacteria Urine Mucus Urine Other Influenza Type A RNA (NEGATIVE) RSV RNA (INAAT) (NEGATIVE) Influenza Type B RNA (NEGATIVE) SARS-CoV-2 RNA (VITALIY) (NEGATIVE) 08/09/20 08/09/20 08/09/20 Range/Units 14:40 14:40 14:43 WBC (4.5-11.0) K/uL RBC (4.30-5.90) M/uL Hgb (12.0-15.0) g/dL Hct (40.0-54.0) % MCV (80-98) fL MCH (27-31) pg MCHC (32-36) % Plt Count (150-400) K/uL Neut % (Auto) (36-66) % Lymph % (Auto) (24-44) % Bryan % (Auto) (2-6) % Eos % (Auto) (2-4) % Baso % (Auto) (0-1) % Sodium (140-148) mmol/L Potassium (3.6-5.2) mmol/L Chloride (100-108) mmol/L Carbon Dioxide (21-32) mmol/L Anion Gap (5.0-14.0) mmol/L BUN (7-18) mg/dL Creatinine (0.8-1.3) mg/dL Est Cr Clr Drug Dosing mL/min Estimated GFR (MDRD) (>60) Glucose (74-106) mg/dL Lactic Acid (0.4-2.0) mmol/L Calcium (8.5-10.1) mg/dL Total Bilirubin (0.2-1.0) mg/dL AST (15-37) U/L ALT (12-78) U/L Alkaline Phosphatase (46-116) U/L Troponin I < 0.017 (0.000-0.056) ng/mL C-Reactive Protein (0.0-0.3) mg/dL Total Protein (6.4-8.2) g/dL Albumin (3.4-5.0) g/dL Globulin (2.3-3.5) g/dL Albumin/Globulin Ratio (1.2-2.2) Procalcitonin 0.15 ng/mL Urine Color (YELLOW) Urine Appearance (CLEAR) Urine pH (5.0-8.0) Ur Specific [place] (1.008-1.030) Urine Protein (NEGATIVE) mg/dL Urine Glucose (UA) (NEGATIVE) mg/dL Urine Ketones (NEGATIVE) mg/dL Urine Occult Blood (NEGATIVE) Urine Nitrite (NEGATIVE) Urine Bilirubin (NEGATIVE) Urine Urobilinogen (0.2-1.0) EU/dL Ur Leukocyte Esterase (NEGATIVE) Urine RBC (0-5) Urine WBC (0-5) Ur Epithelial Cells Amorphous Sediment Urine Bacteria Urine Mucus Urine Other Influenza Type A RNA Negative (NEGATIVE) RSV RNA (INAAT) Negative (NEGATIVE) Influenza Type B RNA Negative (NEGATIVE) SARS-CoV-2 RNA (VITALIY) Negative (NEGATIVE) 08/09/20 08/09/20 08/10/20 Range/Units 16:04 21:51 05:18 WBC 3.7 L (4.5-11.0) K/uL RBC 3.77 L (4.30-5.90) M/uL Hgb 12.2 D (12.0-15.0) g/dL Hct 36.3 L (40.0-54.0) % MCV 96 (80-98) fL MCH 32 H (27-31) pg MCHC 34 (32-36) % Plt Count 131 L (150-400) K/uL Neut % (Auto) 75 H (36-66) % Lymph % (Auto) 14 L (24-44) % Bryan % (Auto) 7 H (2-6) % Eos % (Auto) 3 (2-4) % Baso % (Auto) 0 (0-1) % Sodium (140-148) mmol/L Potassium (3.6-5.2) mmol/L Chloride (100-108) mmol/L Carbon Dioxide (21-32) mmol/L Anion Gap (5.0-14.0) mmol/L BUN (7-18) mg/dL Creatinine (0.8-1.3) mg/dL Est Cr Clr Drug Dosing mL/min Estimated GFR (MDRD) (>60) Glucose (74-106) mg/dL Lactic Acid (0.4-2.0) mmol/L Calcium (8.5-10.1) mg/dL Total Bilirubin (0.2-1.0) mg/dL AST (15-37) U/L ALT (12-78) U/L Alkaline Phosphatase (46-116) U/L Troponin I (0.000-0.056) ng/mL C-Reactive Protein (0.0-0.3) mg/dL Total Protein (6.4-8.2) g/dL Albumin (3.4-5.0) g/dL Globulin (2.3-3.5) g/dL Albumin/Globulin Ratio (1.2-2.2) Procalcitonin ng/mL Urine Color Yellow Yellow (YELLOW) Urine Appearance Clear Clear (CLEAR) Urine pH 5.5 5.0 (5.0-8.0) Ur Specific [place] 1.015 1.015 (1.008-1.030) Urine Protein Negative Negative (NEGATIVE) mg/dL Urine Glucose (UA) Negative Negative (NEGATIVE) mg/dL Urine Ketones Negative Negative (NEGATIVE) mg/dL Urine Occult Blood Negative Negative (NEGATIVE) Urine Nitrite Negative Negative (NEGATIVE) Urine Bilirubin Small H Negative (NEGATIVE) Urine Urobilinogen 0.2 0.2 (0.2-1.0) EU/dL Ur Leukocyte Esterase Negative Negative (NEGATIVE) Urine RBC 0-5 Not seen (0-5) Urine WBC 0-5 0-5 (0-5) Ur Epithelial Cells Rare Few Amorphous Sediment Occasional Not seen Urine Bacteria Rare Not seen Urine Mucus Rare Moderate Urine Other Influenza Type A RNA (NEGATIVE) RSV RNA (INAAT) (NEGATIVE) Influenza Type B RNA (NEGATIVE) SARS-CoV-2 RNA (VITALIY) (NEGATIVE) 08/10/20 Range/Units 05:18 WBC (4.5-11.0) K/uL RBC (4.30-5.90) M/uL Hgb (12.0-15.0) g/dL Hct (40.0-54.0) % MCV (80-98) fL MCH (27-31) pg MCHC (32-36) % Plt Count (150-400) K/uL Neut % (Auto) (36-66) % Lymph % (Auto) (24-44) % Bryan % (Auto) (2-6) % Eos % (Auto) (2-4) % Baso % (Auto) (0-1) % Sodium 137 L (140-148) mmol/L Potassium 3.3 L (3.6-5.2) mmol/L Chloride 102 (100-108) mmol/L Carbon Dioxide 26 (21-32) mmol/L Anion Gap 12.3 (5.0-14.0) mmol/L BUN 21 H (7-18) mg/dL Creatinine 1.5 H (0.8-1.3) mg/dL Est Cr Clr Drug Dosing 41.24 mL/min Estimated GFR (MDRD) 45 L (>60) Glucose 139 H (74-106) mg/dL Lactic Acid (0.4-2.0) mmol/L Calcium 7.6 L D (8.5-10.1) mg/dL Total Bilirubin (0.2-1.0) mg/dL AST (15-37) U/L ALT (12-78) U/L Alkaline Phosphatase (46-116) U/L Troponin I (0.000-0.056) ng/mL C-Reactive Protein (0.0-0.3) mg/dL Total Protein (6.4-8.2) g/dL Albumin (3.4-5.0) g/dL Globulin (2.3-3.5) g/dL Albumin/Globulin Ratio (1.2-2.2) Procalcitonin ng/mL Urine Color (YELLOW) Urine Appearance (CLEAR) Urine pH (5.0-8.0) Ur Specific [place] (1.008-1.030) Urine Protein (NEGATIVE) mg/dL Urine Glucose (UA) (NEGATIVE) mg/dL Urine Ketones (NEGATIVE) mg/dL Urine Occult Blood (NEGATIVE) Urine Nitrite (NEGATIVE) Urine Bilirubin (NEGATIVE) Urine Urobilinogen (0.2-1.0) EU/dL Ur Leukocyte Esterase (NEGATIVE) Urine RBC (0-5) Urine WBC (0-5) Ur Epithelial Cells Amorphous Sediment Urine Bacteria Urine Mucus Urine Other Influenza Type A RNA (NEGATIVE) RSV RNA (INAAT) (NEGATIVE) Influenza Type B RNA (NEGATIVE) SARS-CoV-2 RNA (VITALIY) (NEGATIVE) Rush Results Last 24 Hours: Microbiology 08/09/20 20:05 Gastric Occult Blood - Final Gastric Fluid Med Orders - Current: Current Medications Acetaminophen (Tylenol) 650 mg PO Q4H PRN PRN Reason: Fever Last Admin: 08/10/20 11:47 Dose: 650 mg Documented by: Albuterol (Proventil Neb Soln) 1.25 mg INH BIDRT [facility] Last Admin: 08/10/20 10:49 Dose: 1.25 mg Documented by: Albuterol (Proventil Neb Soln) 2.5 mg NEB Q4H PRN PRN Reason: SOB, wheezing Budesonide (Pulmicort) 0.25 mg INH BIDRT [facility] Last Admin: 08/10/20 10:49 Dose: 0.25 mg Documented by: Lidocaine HCl 30 ml/ Al Hydroxide/Mg Hydroxide 30 ml/Diphenhydramine HCl 75 mg 0 ml PO Q4H PRN PRN Reason: MOUTH CARE Hydromorphone HCl (Dilaudid) 0.5 - 1 mg IVPUSH Q4H PRN PRN Reason: Pain Last Admin: 08/10/20 11:48 Dose: 1 mg Documented by: Dextrose/Sodium Chloride (Dextrose 5%-Normal Saline) 1,000 mls @ 100 mls/hr IV ASDIRECTED [facility] Last Admin: 08/10/20 06:27 Dose: 100 mls/hr Documented by: Meclizine HCl (Antivert) 25 mg PO BID [facility] Last Admin: 08/10/20 09:19 Dose: Not Given Documented by: Ondansetron HCl (Zofran) 4 mg IVPUSH Q4H PRN PRN Reason: Nausea/Vomiting Last Admin: 08/09/20 20:17 Dose: 4 mg Documented by: Pantoprazole Sodium ([facility]ix) [facility] Pramipexole Dihydrochloride (Mirapex) 0.75 mg PO BID [facility] Last Admin: 08/10/20 09:28 Dose: 0.75 mg Documented by: Discontinued Medications Fentanyl (Sublimaze) 50 mcg IVPUSH ONETIME ONE Stop: 08/09/20 14:42 Last Admin: 08/09/20 15:10 Dose: 50 mcg Documented by: Fentanyl (Sublimaze) 50 mcg IVPUSH ONETIME ONE Stop: 08/09/20 16:51 Last Admin: 08/09/20 16:57 Dose: 50 mcg Documented by: Fentanyl (Sublimaze) Confirm Administered Dose 100 mcg .ROUTE .STK-MED ONE Stop: 08/10/20 07:46 Hydromorphone HCl (Dilaudid) 0.5 mg IVPUSH ONETIME ONE Stop: 08/10/20 14:16 Last Admin: 08/10/20 14:03 Dose: 0.5 mg Documented by: Lactated Ringer's (Ringers, Lactated) 1,000 mls @ 999 mls/hr IV ASDIRECTED [facility] Last Admin: 08/09/20 15:11 Dose: 999 mls/hr Documented by: Sodium Chloride (Normal Saline) 100 mls @ 3 mls/sec IV ASDIRECTED [facility] Last Admin: 08/09/20 15:47 Dose: 3 mls/sec Documented by: Lactated Ringer's (Ringers, Lactated) 1,000 mls @ 999 mls/hr IV BOLUS ONE Stop: 08/09/20 17:29 Last Admin: 08/09/20 17:15 Dose: 999 mls/hr Documented by: Iopamidol (Isovue-300 (61%)) 100 ml IV . DIRECTED [facility] Last Admin: 08/09/20 15:47 Dose: 100 ml Documented by: Ketorolac Tromethamine (Toradol) 60 mg IM Q8H PRN PRN Reason: Pain Stop: 08/14/20 20:02 Ondansetron HCl (Zofran) 4 mg IVPUSH ONETIME ONE Stop: 08/09/20 14:42 Last Admin: 08/09/20 15:11 Dose: 4 mg Documented by: Propofol (Diprivan 20 Ml) Confirm Administered Dose 200 mg .ROUTE .STK-MED ONE Stop: 08/10/20 07:46 Sodium Chloride (Saline Flush) 10 ml FLUSH ONETIME ONE Stop: 08/09/20 14:56 Last Admin: 08/09/20 15:46 Dose: 10 ml Documented by: - Exam General: Alert, Oriented HEENT: Pupils Equal, Pupils Reactive, EOMI, Mucous Membr. Moist/Cushing Lungs: Clear to Auscultation, Normal Respiratory Effort Cardiovascular: Regular Rate, Regular Rhythm GI/Abdominal Exam: Normal Bowel Sounds, Tender Peripheral Pulses: 1+: Radial (L), Radial (R) Skin: Warm Psy/Mental Status: Alert, Normal Affect, Normal Mood - Patient Data Lab Results Last 24 hrs: Laboratory Results - last 24 hr 08/09/20 08/09/20 08/09/20 Range/Units 14:40 14:40 14:40 WBC 4.5 (4.5-11.0) K/uL RBC 4.64 (4.30-5.90) M/uL Hgb 14.8 (12.0-15.0) g/dL Hct 44.1 (40.0-54.0) % MCV 95 (80-98) fL MCH 32 H (27-31) pg MCHC 34 (32-36) % Plt Count 166 (150-400) K/uL Neut % (Auto) 92 H (36-66) % Lymph % (Auto) 3 L (24-44) % Bryan % (Auto) 3 (2-6) % Eos % (Auto) 2 (2-4) % Baso % (Auto) 0 (0-1) % Sodium 137 L (140-148) mmol/L Potassium 3.8 (3.6-5.2) mmol/L Chloride 100 (100-108) mmol/L Carbon Dioxide 25 (21-32) mmol/L Anion Gap 15.8 H (5.0-14.0) mmol/L BUN 28 H (7-18) mg/dL Creatinine 1.6 H (0.8-1.3) mg/dL Est Cr Clr Drug Dosing 38.66 mL/min Estimated GFR (MDRD) 42 L (>60) Glucose 161 H (74-106) mg/dL Lactic Acid 1.4 (0.4-2.0) mmol/L Calcium 9.2 (8.5-10.1) mg/dL Total Bilirubin 0.7 D (0.2-1.0) mg/dL AST 16 (15-37) U/L ALT 16 (12-78) U/L Alkaline Phosphatase 71 (46-116) U/L Troponin I (0.000-0.056) ng/mL C-Reactive Protein 2.07 H (0.0-0.3) mg/dL Total Protein 7.4 (6.4-8.2) g/dL Albumin 3.5 (3.4-5.0) g/dL Globulin 3.9 H (2.3-3.5) g/dL Albumin/Globulin Ratio 0.9 L (1.2-2.2) Procalcitonin ng/mL Urine Color (YELLOW) Urine Appearance (CLEAR) Urine pH (5.0-8.0) Ur Specific [place] (1.008-1.030) Urine Protein (NEGATIVE) mg/dL Urine Glucose (UA) (NEGATIVE) mg/dL Urine Ketones (NEGATIVE) mg/dL Urine Occult Blood (NEGATIVE) Urine Nitrite (NEGATIVE) Urine Bilirubin (NEGATIVE) Urine Urobilinogen (0.2-1.0) EU/dL Ur Leukocyte Esterase (NEGATIVE) Urine RBC (0-5) Urine WBC (0-5) Ur Epithelial Cells Amorphous Sediment Urine Bacteria Urine Mucus Urine Other Influenza Type A RNA (NEGATIVE) RSV RNA (INAAT) (NEGATIVE) Influenza Type B RNA (NEGATIVE) SARS-CoV-2 RNA (VITALIY) (NEGATIVE) 08/09/20 08/09/20 08/09/20 Range/Units 14:40 14:40 14:43 WBC (4.5-11.0) K/uL RBC (4.30-5.90) M/uL Hgb (12.0-15.0) g/dL Hct (40.0-54.0) % MCV (80-98) fL MCH (27-31) pg MCHC (32-36) % Plt Count (150-400) K/uL Neut % (Auto) (36-66) % Lymph % (Auto) (24-44) % Bryan % (Auto) (2-6) % Eos % (Auto) (2-4) % Baso % (Auto) (0-1) % Sodium (140-148) mmol/L Potassium (3.6-5.2) mmol/L Chloride (100-108) mmol/L Carbon Dioxide (21-32) mmol/L Anion Gap (5.0-14.0) mmol/L BUN (7-18) mg/dL Creatinine (0.8-1.3) mg/dL Est Cr Clr Drug Dosing mL/min Estimated GFR (MDRD) (>60) Glucose (74-106) mg/dL Lactic Acid (0.4-2.0) mmol/L Calcium (8.5-10.1) mg/dL Total Bilirubin (0.2-1.0) mg/dL AST (15-37) U/L ALT (12-78) U/L Alkaline Phosphatase (46-116) U/L Troponin I < 0.017 (0.000-0.056) ng/mL C-Reactive Protein (0.0-0.3) mg/dL Total Protein (6.4-8.2) g/dL Albumin (3.4-5.0) g/dL Globulin (2.3-3.5) g/dL Albumin/Globulin Ratio (1.2-2.2) Procalcitonin 0.15 ng/mL Urine Color (YELLOW) Urine Appearance (CLEAR) Urine pH (5.0-8.0) Ur Specific [place] (1.008-1.030) Urine Protein (NEGATIVE) mg/dL Urine Glucose (UA) (NEGATIVE) mg/dL Urine Ketones (NEGATIVE) mg/dL Urine Occult Blood (NEGATIVE) Urine Nitrite (NEGATIVE) Urine Bilirubin (NEGATIVE) Urine Urobilinogen (0.2-1.0) EU/dL Ur Leukocyte Esterase (NEGATIVE) Urine RBC (0-5) Urine WBC (0-5) Ur Epithelial Cells Amorphous Sediment Urine Bacteria Urine Mucus Urine Other Influenza Type A RNA Negative (NEGATIVE) RSV RNA (INAAT) Negative (NEGATIVE) Influenza Type B RNA Negative (NEGATIVE) SARS-CoV-2 RNA (VITALIY) Negative (NEGATIVE) 08/09/20 08/09/20 08/10/20 Range/Units 16:04 21:51 05:18 WBC 3.7 L (4.5-11.0) K/uL RBC 3.77 L (4.30-5.90) M/uL Hgb 12.2 D (12.0-15.0) g/dL Hct 36.3 L (40.0-54.0) % MCV 96 (80-98) fL MCH 32 H (27-31) pg MCHC 34 (32-36) % Plt Count 131 L (150-400) K/uL Neut % (Auto) 75 H (36-66) % Lymph % (Auto) 14 L (24-44) % Bryan % (Auto) 7 H (2-6) % Eos % (Auto) 3 (2-4) % Baso % (Auto) 0 (0-1) % Sodium (140-148) mmol/L Potassium (3.6-5.2) mmol/L Chloride (100-108) mmol/L Carbon Dioxide (21-32) mmol/L Anion Gap (5.0-14.0) mmol/L BUN (7-18) mg/dL Creatinine (0.8-1.3) mg/dL Est Cr Clr Drug Dosing mL/min Estimated GFR (MDRD) (>60) Glucose (74-106) mg/dL Lactic Acid (0.4-2.0) mmol/L Calcium (8.5-10.1) mg/dL Total Bilirubin (0.2-1.0) mg/dL AST (15-37) U/L ALT (12-78) U/L Alkaline Phosphatase (46-116) U/L Troponin I (0.000-0.056) ng/mL C-Reactive Protein (0.0-0.3) mg/dL Total Protein (6.4-8.2) g/dL Albumin (3.4-5.0) g/dL Globulin (2.3-3.5) g/dL Albumin/Globulin Ratio (1.2-2.2) Procalcitonin ng/mL Urine Color Yellow Yellow (YELLOW) Urine Appearance Clear Clear (CLEAR) Urine pH 5.5 5.0 (5.0-8.0) Ur Specific [place] 1.015 1.015 (1.008-1.030) Urine Protein Negative Negative (NEGATIVE) mg/dL Urine Glucose (UA) Negative Negative (NEGATIVE) mg/dL Urine Ketones Negative Negative (NEGATIVE) mg/dL Urine Occult Blood Negative Negative (NEGATIVE) Urine Nitrite Negative Negative (NEGATIVE) Urine Bilirubin Small H Negative (NEGATIVE) Urine Urobilinogen 0.2 0.2 (0.2-1.0) EU/dL Ur Leukocyte Esterase Negative Negative (NEGATIVE) Urine RBC 0-5 Not seen (0-5) Urine WBC 0-5 0-5 (0-5) Ur Epithelial Cells Rare Few Amorphous Sediment Occasional Not seen Urine Bacteria Rare Not seen Urine Mucus Rare Moderate Urine Other Influenza Type A RNA (NEGATIVE) RSV RNA (INAAT) (NEGATIVE) Influenza Type B RNA (NEGATIVE) SARS-CoV-2 RNA (VITALIY) (NEGATIVE) 08/10/20 Range/Units 05:18 WBC (4.5-11.0) K/uL RBC (4.30-5.90) M/uL Hgb (12.0-15.0) g/dL Hct (40.0-54.0) % MCV (80-98) fL MCH (27-31) pg MCHC (32-36) % Plt Count (150-400) K/uL Neut % (Auto) (36-66) % Lymph % (Auto) (24-44) % Bryan % (Auto) (2-6) % Eos % (Auto) (2-4) % Baso % (Auto) (0-1) % Sodium 137 L (140-148) mmol/L Potassium 3.3 L (3.6-5.2) mmol/L Chloride 102 (100-108) mmol/L Carbon Dioxide 26 (21-32) mmol/L Anion Gap 12.3 (5.0-14.0) mmol/L BUN 21 H (7-18) mg/dL Creatinine 1.5 H (0.8-1.3) mg/dL Est Cr Clr Drug Dosing 41.24 mL/min Estimated GFR (MDRD) 45 L (>60) Glucose 139 H (74-106) mg/dL Lactic Acid (0.4-2.0) mmol/L Calcium 7.6 L D (8.5-10.1) mg/dL Total Bilirubin (0.2-1.0) mg/dL AST (15-37) U/L ALT (12-78) U/L Alkaline Phosphatase (46-116) U/L Troponin I (0.000-0.056) ng/mL C-Reactive Protein (0.0-0.3) mg/dL Total Protein (6.4-8.2) g/dL Albumin (3.4-5.0) g/dL Globulin (2.3-3.5) g/dL Albumin/Globulin Ratio (1.2-2.2) Procalcitonin ng/mL Urine Color (YELLOW) Urine Appearance (CLEAR) Urine pH (5.0-8.0) Ur Specific [place] (1.008-1.030) Urine Protein (NEGATIVE) mg/dL Urine Glucose (UA) (NEGATIVE) mg/dL Urine Ketones (NEGATIVE) mg/dL Urine Occult Blood (NEGATIVE) Urine Nitrite (NEGATIVE) Urine Bilirubin (NEGATIVE) Urine Urobilinogen (0.2-1.0) EU/dL Ur Leukocyte Esterase (NEGATIVE) Urine RBC (0-5) Urine WBC (0-5) Ur Epithelial Cells Amorphous Sediment Urine Bacteria Urine Mucus Urine Other Influenza Type A RNA (NEGATIVE) RSV RNA (INAAT) (NEGATIVE) Influenza Type B RNA (NEGATIVE) SARS-CoV-2 RNA (VITALIY) (NEGATIVE) Result Diagrams: 08/10/20 05:18 08/10/20 05:18 Rush Results Last 24 hrs: Microbiology 08/09/20 20:05 Gastric Occult Blood - Final Gastric Fluid Sepsis Event Note - Evaluation Sepsis Screening Result: No Definite Risk - Focused Exam Vital Signs: Vital Signs Temp Pulse Resp BP Pulse Ox 08/10/20 12:00 98.6 F 71 18 86/48 L 95 08/10/20 10:25 69 16 115/91 H 96 08/10/20 09:55 70 18 87/57 L 94 L 08/10/20 09:25 71 18 92/52 L 91 L 08/10/20 09:10 70 16 96/59 L 91 L 08/10/20 08:55 69 18 94/51 L 91 L 08/10/20 08:40 71 18 92/56 L 94 L 08/10/20 08:25 97.7 F 70 16 85/50 L 95 08/10/20 08:20 70 16 89/46 L 96 08/10/20 08:15 70 15 73/45 L 95 08/10/20 08:10 75 15 64/40 L 94 L 08/10/20 08:05 96.4 F L 72 15 71/44 L 95 08/10/20 07:29 99.6 F 69 16 90/40 L 93 L 08/10/20 03:09 101.1 F H 81 18 103/60 94 L - Problem List Review Problem List Initiated/Reviewed/Updated: Yes - My Orders Last 24 Hours: My Active Orders 08/09/20 18:11 Up ad Chela [RC] ASDIRECTED Resuscitation Status Routine 08/09/20 18:12 Patient Status [ADT] Routine Oxygen Therapy [RC] PRN 08/09/20 18:18 RT Aerosol Therapy [RC] ASDIRECTED 08/09/20 20:00 Dextrose 5%-0.9% NaCl [Dextrose 5%-Normal Saline] 1,000 ml IV ASDIRECTED 08/09/20 20:01 Ondansetron [Zofran] 4 mg IVPUSH Q4H PRN 08/09/20 20:06 SCD [Sequential Compression Device] [OM.PC] Routine 08/09/20 20:19 HYDROmorphone [Dilaudid] 0.5 - 1 mg IVPUSH Q4H PRN 08/09/20 21:00 Albuterol [Proventil Neb Soln] 1.25 mg INH BIDRT Budesonide [Pulmicort] 0.25 mg INH BIDRT Meclizine [Antivert] 25 mg PO BID Pramipexole [Mirapex] 0.75 mg PO BID 08/09/20 21:53 Acetaminophen [TylenoL] 650 mg PO Q4H PRN 08/10/20 Breakfast Advance Diet Instructions [DIET] 08/10/20 13:46 Lidocaine 2% [Xylocaine 2% Viscous] 30 ml Alum Hydrox/Mag Hydrox/Simeth [Mag-Al Plus] 30 ml diphenhydrAMINE [Benadryl] 75 mg PO Q4H 08/10/20 13:58 Albuterol [Proventil Neb Soln] 2.5 mg NEB Q4H PRN 08/10/20 14:00 RT Aerosol Therapy [RC] ASDIRECTED 08/10/20 16:30 Pantoprazole [ProTONIX] 40 mg PO BIDAC - Plan Plan:: Assessment/Plan #1. Distal Esophagitis. He is having pain which is evident. Pain is relieved by Dilaudid. #2. Dehydration: He is hydrated presently. #3. History of Insomnia: #4. Vertigo: Meniere's disease #5. COPD; Stable #6. HTN: By History Will keep him the rest of the day and consider home tomorrow.
[2020-08-10] MEDS: Lidocaine 2% 30 ML, Alum Hydrox/Mag Hydrox/Simeth 30 ML, diphenhydrAMINE 75 MG PO PRN ×3 (15:51)
[2020-08-10] MEDS: Pantoprazole 40 MG Tab.CR PO SCH (15:57)
[2020-08-10] MEDS: MECLIZINE 25 MG CHEW SCH (20:09)
[2020-08-10] MEDS: PRAMIPEXOLE 1 MG PO SCH (20:10)
[2020-08-10] MEDS: Albuterol/Ipratropium 3.0-0.5 MG/3 ML Neb Soln NEB SCH (20:12)
[2020-08-10] MEDS ORDERED: Pramipexole 0.5 MG Tab PO SCH (21:00)
[2020-08-11] MEDS: Lidocaine 2% 30 ML, Alum Hydrox/Mag Hydrox/Simeth 30 ML, diphenhydrAMINE 75 MG PO PRN ×6 (03:15→07:41)
[2020-08-11] MEDS: Albuterol/Ipratropium 3.0-0.5 MG/3 ML Neb Soln NEB SCH ×4 (07:19→20:36)
[2020-08-11] MEDS: Budesonide 0.25 MG/2 ML Neb Susp INH SCH ×2 (07:19→20:36)
[2020-08-11] MEDS: Pantoprazole 40 MG Tab.CR PO SCH ×2 (07:43→15:52)
[2020-08-11] MEDS: MECLIZINE 25 MG CHEW SCH ×2 (09:12→20:35)
[2020-08-11] MEDS: PRAMIPEXOLE 1 MG PO SCH ×2 (09:12→20:35)
[2020-08-11] MEDS ORDERED: Alum Hydrox/Mag Hydrox/Simeth 15 ML, Lidocaine 2% 15 ML PO PRN ×2 (13:29)
--- NOTE | 2020-08-11 21:46 | PCM.PN ---
- General Info Date of Service: 08/11/20 Subjective Update: He is having difficulty swallowing with difficulty in the throat area and only able to take liquids only and small amounts. He using viscous lidocaine magic mouth mixture. Functional Status: Reports: Pain Controlled - Review of Systems General: Reports: Weakness HEENT: Reports: No Symptoms, Other (Having swallowing problems) Pulmonary: Reports: No Symptoms Cardiovascular: Reports: No Symptoms Gastrointestinal: Reports: Abdominal Pain Genitourinary: Reports: No Symptoms Musculoskeletal: Reports: No Symptoms Skin: Reports: No Symptoms Neurological: Reports: No Symptoms Psychiatric: Reports: No Symptoms - Patient Data Vitals - Most Recent: Last Vital Signs Temp 98.9 F 08/11/20 19:10 Pulse 73 08/11/20 19:10 Resp 16 08/11/20 19:10 BP 108/66 08/11/20 19:10 Pulse Ox 93 L 08/11/20 19:10 Weight - Most Recent: 195 lb 0.017 oz I&O - Last 24 Hours: Intake & Output 08/11/20 08/11/20 08/11/20 06:59 14:59 22:59 Intake Total 619 1084 Output Total 400 200 900 Balance 219 -200 184 Rush Results Last 24 Hours: Microbiology 08/09/20 15:03 Aerobic Blood Culture - Preliminary Blood - Arm, Right NO GROWTH AFTER 2 DAYS Anaerobic Blood Culture - Preliminary NO GROWTH AFTER 2 DAYS 08/09/20 14:40 Aerobic Blood Culture - Preliminary Blood - Arm, Right NO GROWTH AFTER 2 DAYS Anaerobic Blood Culture - Preliminary NO GROWTH AFTER 2 DAYS Med Orders - Current: Current Medications Acetaminophen (Tylenol) 650 mg PO Q4H PRN PRN Reason: Fever Last Admin: 08/10/20 11:47 Dose: 650 mg Documented by: Albuterol/Ipratropium (Duoneb 3.0-0.5 Mg/3 Ml) 3 ml NEB QIDRT [facility] Last Admin: 08/11/20 20:36 Dose: 3 ml Documented by: Budesonide (Pulmicort) 0.25 mg INH BIDRT [facility] Last Admin: 08/11/20 20:36 Dose: 0.25 mg Documented by: Lidocaine HCl 30 ml/ Al Hydroxide/Mg Hydroxide 30 ml/Diphenhydramine HCl 75 mg 0 ml PO Q4H PRN PRN Reason: MOUTH CARE Last Admin: 08/11/20 07:41 Dose: 15 ml Documented by: Al Hydroxide/Mg Hydroxide 15 (ml/ Lidocaine HCl 15 ml) 0 ml PO Q4H PRN PRN Reason: GI upset Last Admin: 08/11/20 15:52 Dose: 30 ml Documented by: Hydromorphone HCl (Dilaudid) 0.5 - 1 mg IVPUSH Q4H PRN PRN Reason: Pain Last Admin: 08/10/20 11:48 Dose: 1 mg Documented by: Dextrose/Sodium Chloride (Dextrose 5%-Normal Saline) 1,000 mls @ 100 mls/hr IV ASDIRECTED [facility] Last Admin: 08/10/20 15:16 Dose: 100 mls/hr Documented by: Ondansetron HCl (Zofran) 4 mg IVPUSH Q4H PRN PRN Reason: Nausea/Vomiting Last Admin: 08/09/20 20:17 Dose: 4 mg Documented by: Pantoprazole Sodium (Protonix) 40 mg PO BIDAC [facility] Last Admin: 08/11/20 15:52 Dose: 40 mg Documented by: Pramipexole 1 Mg (Tablet Own Med) 0 each PO BID [facility] Last Admin: 08/11/20 20:35 Dose: 1 each Documented by: Meclizine 25 Mg Chewable Tablet Own Med 0 each CHEW BID [facility] Last Admin: 08/11/20 20:35 Dose: 1 each Documented by: Discontinued Medications Albuterol (Proventil Neb Soln) 1.25 mg INH BIDRT [facility] Last Admin: 08/10/20 10:49 Dose: 1.25 mg Documented by: Albuterol (Proventil Neb Soln) 2.5 mg NEB Q4H PRN PRN Reason: SOB, wheezing Fentanyl (Sublimaze) 50 mcg IVPUSH ONETIME ONE Stop: 08/09/20 14:42 Last Admin: 08/09/20 15:10 Dose: 50 mcg Documented by: Fentanyl (Sublimaze) 50 mcg IVPUSH ONETIME ONE Stop: 08/09/20 16:51 Last Admin: 08/09/20 16:57 Dose: 50 mcg Documented by: Fentanyl (Sublimaze) Confirm Administered Dose 100 mcg .ROUTE .STK-MED ONE Stop: 08/10/20 07:46 Hydromorphone HCl (Dilaudid) 0.5 mg IVPUSH ONETIME ONE Stop: 08/10/20 14:16 Last Admin: 08/10/20 14:03 Dose: 0.5 mg Documented by: Lactated Ringer's (Ringers, Lactated) 1,000 mls @ 999 mls/hr IV ASDIRECTED [facility] Last Admin: 08/09/20 15:11 Dose: 999 mls/hr Documented by: Sodium Chloride (Normal Saline) 100 mls @ 3 mls/sec IV ASDIRECTED [facility] Last Admin: 08/09/20 15:47 Dose: 3 mls/sec Documented by: Lactated Ringer's (Ringers, Lactated) 1,000 mls @ 999 mls/hr IV BOLUS ONE Stop: 08/09/20 17:29 Last Admin: 08/09/20 17:15 Dose: 999 mls/hr Documented by: Iopamidol (Isovue-300 (61%)) 100 ml IV . DIRECTED [facility] Last Admin: 08/09/20 15:47 Dose: 100 ml Documented by: Ketorolac Tromethamine (Toradol) 60 mg IM Q8H PRN PRN Reason: Pain Stop: 08/14/20 20:02 Meclizine HCl (Antivert) 25 mg PO BID [facility] Last Admin: 08/10/20 09:19 Dose: Not Given Documented by: Ondansetron HCl (Zofran) 4 mg IVPUSH ONETIME ONE Stop: 08/09/20 14:42 Last Admin: 08/09/20 15:11 Dose: 4 mg Documented by: Pramipexole Dihydrochloride (Mirapex) 0.75 mg PO BID [facility] Last Admin: 08/10/20 09:28 Dose: 0.75 mg Documented by: Pramipexole Dihydrochloride (Mirapex) 0.5 mg PO BID [facility] Propofol (Diprivan 20 Ml) Confirm Administered Dose 200 mg .ROUTE .STK-MED ONE Stop: 08/10/20 07:46 Sodium Chloride (Saline Flush) 10 ml FLUSH ONETIME ONE Stop: 08/09/20 14:56 Last Admin: 08/09/20 15:46 Dose: 10 ml Documented by: - Exam General: Alert, Oriented HEENT: Pupils Equal, Pupils Reactive, EOMI, Mucous Membr. Moist/[place] Neck: Supple Lungs: Clear to Auscultation, Normal Respiratory Effort Cardiovascular: Regular Rate, Regular Rhythm GI/Abdominal Exam: Soft, Tender Extremities: Normal Inspection, Normal Range of Motion, Non-Tender, No Pedal Edema, Normal Capillary Refill Peripheral Pulses: 1+: Radial (L), Radial (R) - Patient Data Result Diagrams: 08/10/20 05:18 08/10/20 05:18 Rush Results Last 24 hrs: Microbiology 08/09/20 15:03 Aerobic Blood Culture - Preliminary Blood - Arm, Right NO GROWTH AFTER 2 DAYS Anaerobic Blood Culture - Preliminary NO GROWTH AFTER 2 DAYS 08/09/20 14:40 Aerobic Blood Culture - Preliminary Blood - Arm, Right NO GROWTH AFTER 2 DAYS Anaerobic Blood Culture - Preliminary NO GROWTH AFTER 2 DAYS Sepsis Event Note - Evaluation Sepsis Screening Result: No Definite Risk - Focused Exam Vital Signs: Vital Signs Temp Pulse Resp BP Pulse Ox 08/11/20 19:10 98.9 F 73 16 108/66 93 L 08/11/20 15:11 98.9 F 74 16 117/58 L 94 L 08/11/20 14:39 82 08/11/20 11:30 99.1 F 74 16 114/61 92 L 08/11/20 11:12 76 - Problem List Review Problem List Initiated/Reviewed/Updated: Yes - My Orders Last 24 Hours: My Active Orders 08/10/20 21:00 Albuterol/Ipratropium [DuoNeb 3.0-0.5 MG/3 ML] 3 ml NEB QIDRT Patient's Own Medication [Ptom] 0 each CHEW BID Patient's Own Medication [Ptom] 0 each PO BID 08/11/20 13:29 Alum Hydrox/Mag Hydrox/Simeth [Mag-Al Plus] 15 ml Lidocaine 2% [Xylocaine 2% Viscous] 15 ml PO Q4H - Plan Plan:: Assessment/Plan #1. Distal Esophagitis. He is having pain which is evident w ith dysphagia and he is afraid to go home as he feels so weak he feels he will have to come back in a EMS Pain is relieved by Dilaudid but less today than yesterday. #2. Dehydration: He is hydrated presently. #3. History of Insomnia: #4. Vertigo: Meniere's disease #5. COPD; Stable #6. HTN: By History Will do a swallowing study Thursday morning.
[2020-08-12] MEDS: Albuterol/Ipratropium 3.0-0.5 MG/3 ML Neb Soln NEB SCH ×2 (07:13→10:52)
[2020-08-12] MEDS: Budesonide 0.25 MG/2 ML Neb Susp INH SCH (07:13)
[2020-08-12] MEDS: Pantoprazole 40 MG Tab.CR PO SCH (07:39)
[2020-08-12] MEDS: MECLIZINE 25 MG CHEW SCH (09:18)
[2020-08-12] MEDS: PRAMIPEXOLE 1 MG PO SCH (09:19)
[2020-08-12 10:53] VITALS: PULSE 72
[2020-08-12 10:57] VITALS: BP 119/55
--- NOTE | 2020-08-12 13:49 | PCM.PN ---
- General Info Date of Service: 08/12/20 Admission Dx/Problem (Free Text): He is swallowing good at the present time if he takes small amounts of liquid or food. Functional Status: Reports: Pain Controlled - Review of Systems General: Reports: No Symptoms HEENT: Reports: No Symptoms Pulmonary: Reports: No Symptoms Cardiovascular: Reports: No Symptoms Gastrointestinal: Reports: Abdominal Pain Genitourinary: Reports: No Symptoms Musculoskeletal: Reports: No Symptoms Skin: Reports: No Symptoms Neurological: Reports: No Symptoms Psychiatric: Reports: No Symptoms - Patient Data Vitals - Most Recent: Last Vital Signs Temp 99.6 F 08/12/20 10:56 Pulse 72 08/12/20 10:56 Resp 16 08/12/20 10:56 BP 119/55 L 08/12/20 10:56 Pulse Ox 74 L 08/12/20 10:56 Weight - Most Recent: 195 lb 0.017 oz I&O - Last 24 Hours: Intake & Output 08/11/20 08/12/20 08/12/20 22:59 06:59 14:59 Intake Total 1084 440 850 Output Total 900 300 Balance 184 140 850 Rush Results Last 24 Hours: Microbiology 08/09/20 15:03 Aerobic Blood Culture - Preliminary Blood - Arm, Right NO GROWTH AFTER 2 DAYS Anaerobic Blood Culture - Preliminary NO GROWTH AFTER 2 DAYS 08/09/20 14:40 Aerobic Blood Culture - Preliminary Blood - Arm, Right NO GROWTH AFTER 2 DAYS Anaerobic Blood Culture - Preliminary NO GROWTH AFTER 2 DAYS Med Orders - Current: Current Medications Acetaminophen (Tylenol) 650 mg PO Q4H PRN PRN Reason: Fever Last Admin: 08/10/20 11:47 Dose: 650 mg Documented by: Albuterol/Ipratropium (Duoneb 3.0-0.5 Mg/3 Ml) 3 ml NEB QIDRT [facility] Last Admin: 08/12/20 10:52 Dose: 3 ml Documented by: Budesonide (Pulmicort) 0.25 mg INH BIDRT [facility] Last Admin: 08/12/20 07:13 Dose: 0.25 mg Documented by: Lidocaine HCl 30 ml/ Al Hydroxide/Mg Hydroxide 30 ml/Diphenhydramine HCl 75 mg 0 ml PO Q4H PRN PRN Reason: MOUTH CARE Last Admin: 08/11/20 07:41 Dose: 15 ml Documented by: Al Hydroxide/Mg Hydroxide 15 (ml/ Lidocaine HCl 15 ml) 0 ml PO Q4H PRN PRN Reason: GI upset Last Admin: 08/11/20 15:52 Dose: 30 ml Documented by: Hydromorphone HCl (Dilaudid) 0.5 - 1 mg IVPUSH Q4H PRN PRN Reason: Pain Last Admin: 08/10/20 11:48 Dose: 1 mg Documented by: Dextrose/Sodium Chloride (Dextrose 5%-Normal Saline) 1,000 mls @ 100 mls/hr IV ASDIRECTED [facility] Last Admin: 08/10/20 15:16 Dose: 100 mls/hr Documented by: Ondansetron HCl (Zofran) 4 mg IVPUSH Q4H PRN PRN Reason: Nausea/Vomiting Last Admin: 08/09/20 20:17 Dose: 4 mg Documented by: Pantoprazole Sodium (Protonix) 40 mg PO BIDAC [facility] Last Admin: 08/12/20 07:39 Dose: 40 mg Documented by: Pramipexole 1 Mg (Tablet Own Med) 0 each PO BID [facility] Last Admin: 08/12/20 09:19 Dose: 0.5 each Documented by: Meclizine 25 Mg Chewable Tablet Own Med 0 each CHEW BID [facility] Last Admin: 08/12/20 09:18 Dose: 1 each Documented by: Discontinued Medications Albuterol (Proventil Neb Soln) 1.25 mg INH BIDRT [facility] Last Admin: 08/10/20 10:49 Dose: 1.25 mg Documented by: Albuterol (Proventil Neb Soln) 2.5 mg NEB Q4H PRN PRN Reason: SOB, wheezing Fentanyl (Sublimaze) 50 mcg IVPUSH ONETIME ONE Stop: 08/09/20 14:42 Last Admin: 08/09/20 15:10 Dose: 50 mcg Documented by: Fentanyl (Sublimaze) 50 mcg IVPUSH ONETIME ONE Stop: 08/09/20 16:51 Last Admin: 08/09/20 16:57 Dose: 50 mcg Documented by: Fentanyl (Sublimaze) Confirm Administered Dose 100 mcg .ROUTE .STK-MED ONE Stop: 08/10/20 07:46 Hydromorphone HCl (Dilaudid) 0.5 mg IVPUSH ONETIME ONE Stop: 08/10/20 14:16 Last Admin: 08/10/20 14:03 Dose: 0.5 mg Documented by: Lactated Ringer's (Ringers, Lactated) 1,000 mls @ 999 mls/hr IV ASDIRECTED [facility] Last Admin: 08/09/20 15:11 Dose: 999 mls/hr Documented by: Sodium Chloride (Normal Saline) 100 mls @ 3 mls/sec IV ASDIRECTED [facility] Last Admin: 08/09/20 15:47 Dose: 3 mls/sec Documented by: Lactated Ringer's (Ringers, Lactated) 1,000 mls @ 999 mls/hr IV BOLUS ONE Stop: 08/09/20 17:29 Last Admin: 08/09/20 17:15 Dose: 999 mls/hr Documented by: Iopamidol (Isovue-300 (61%)) 100 ml IV . DIRECTED [facility] Last Admin: 08/09/20 15:47 Dose: 100 ml Documented by: Ketorolac Tromethamine (Toradol) 60 mg IM Q8H PRN PRN Reason: Pain Stop: 08/14/20 20:02 Meclizine HCl (Antivert) 25 mg PO BID [facility] Last Admin: 08/10/20 09:19 Dose: Not Given Documented by: Ondansetron HCl (Zofran) 4 mg IVPUSH ONETIME ONE Stop: 08/09/20 14:42 Last Admin: 08/09/20 15:11 Dose: 4 mg Documented by: Pramipexole Dihydrochloride (Mirapex) 0.75 mg PO BID [facility] Last Admin: 08/10/20 09:28 Dose: 0.75 mg Documented by: Pramipexole Dihydrochloride (Mirapex) 0.5 mg PO BID [facility] Propofol (Diprivan 20 Ml) Confirm Administered Dose 200 mg .ROUTE .STK-MED ONE Stop: 08/10/20 07:46 Sodium Chloride (Saline Flush) 10 ml FLUSH ONETIME ONE Stop: 08/09/20 14:56 Last Admin: 08/09/20 15:46 Dose: 10 ml Documented by: - Exam General: Alert, Oriented HEENT: Pupils Equal, Pupils Reactive, EOMI, Mucous Membr. Moist/[place] Neck: Supple Lungs: Clear to Auscultation, Normal Respiratory Effort Cardiovascular: Regular Rate, Regular Rhythm GI/Abdominal Exam: Tender Peripheral Pulses: 1+: Radial (L), Radial (R) Skin: Warm, Dry, Intact Psy/Mental Status: Alert, Normal Mood - Patient Data Result Diagrams: 08/10/20 05:18 08/10/20 05:18 Rush Results Last 24 hrs: Microbiology 08/09/20 15:03 Aerobic Blood Culture - Preliminary Blood - Arm, Right NO GROWTH AFTER 2 DAYS Anaerobic Blood Culture - Preliminary NO GROWTH AFTER 2 DAYS 08/09/20 14:40 Aerobic Blood Culture - Preliminary Blood - Arm, Right NO GROWTH AFTER 2 DAYS Anaerobic Blood Culture - Preliminary NO GROWTH AFTER 2 DAYS Sepsis Event Note - Evaluation Sepsis Screening Result: No Definite Risk - Focused Exam Vital Signs: Vital Signs Temp Pulse Resp BP Pulse Ox 08/12/20 10:56 99.6 F 72 16 119/55 L 74 L 08/12/20 10:52 72 08/12/20 07:39 99 F 61 16 115/65 91 L 08/12/20 07:14 78 08/12/20 03:04 99.4 F 70 20 128/68 91 L - Problem List Review Problem List Initiated/Reviewed/Updated: Yes - My Orders Last 24 Hours: My Active Orders 08/11/20 13:29 Alum Hydrox/Mag Hydrox/Simeth [Mag-Al Plus] 15 ml Lidocaine 2% [Xylocaine 2% Viscous] 15 ml PO Q4H - Plan Plan:: Assessment/Plan #1. Distal Esophagitis. He is having minimal pain in the abd. #2. Dehydration: resolved. #3. History of Insomnia: #4. Vertigo: Meniere's disease #5. COPD; Stable #6. HTN: By History Home today.
--- NOTE | 2020-08-12 13:55 | PCM.DCSUM1 ---
Discharge Summary - Hospital Course Brief History: He had a EGD which showed significant pathology in the kistal esophagus and path reports are pending. Diagnosis: Stroke: No Modified Candace Scale: No Symptoms at All Modified Bryan Scale Score: 0 - Discharge Data Discharge Date: 08/12/20 Discharge Disposition: Home, Self-Care 01 Condition: Good - Referral to Home Health Primary Care Physician: Brett Solis Sr, MD - Patient Summary/Data Operative Procedure(s) Performed: EGD with bx. Hospital Course: He came in and was dehydrated and was Vomiting up blood. EGD was done with Bx. and reports are pending. The day after surgery he had a hard time swallowing with resolved and will be discharged today. - Patient Instructions Diet: Heart Healthy Diet - Discharge Plan *PRESCRIPTION DRUG MONITORING PROGRAM REVIEWED*: No *COPY OF PRESCRIPTION DRUG MONITORING REPORT IN PATIENT SISI: No Home Medications: Home Meds Meclizine [Antivert] 25 mg PO BID 12/14/16 [History] HCTZ/Triamterene [Maxzide 25-37.5 MG] 1 tab PO DAILY PRN 11/23/18 [History] Leuprolide [Lupron Dep[place] 3-Month] 22.5 mg IM Q6M 11/23/18 [History] Sennosides/Docusate Sodium [Docusate Sodium-Senna Tablet] 1 tab PO BID 11/23/18 [History] Albuterol Sulfate 1 ampule INH BID 08/09/20 [History] Budesonide [Pulmicort] 1 ampule INH BID 08/09/20 [History] Pramipexole Di-HCl [Mirapex] 0.5 mg PO BID 08/10/20 [History] Forms: ED Department Discharge Referrals: Brett Solis Sr, MD [Primary Care Provider] - - Discharge Summary/Plan Comment DC Time >30 min.: No Discharge Summary/Plan Comment: Assessment/Plan #1. Distal Esophagitis. He is having minimal pain in the abd. #2. Dehydration: resolved. #3. History of Insomnia: #4. Vertigo: Meniere's disease #5. COPD; Stable #6. HTN: By History Home today. He will need another EGD in one month. He is to take Prilosec twice daily. I will speak with him once the path report is complete. - General Info Functional Status: Reports: Pain Controlled - Review of Systems General: Reports: No Symptoms HEENT: Reports: No Symptoms Pulmonary: Reports: No Symptoms Cardiovascular: Reports: No Symptoms Gastrointestinal: Reports: Abdominal Pain, Difficulty Swallowing Musculoskeletal: Reports: No Symptoms Neurological: Reports: No Symptoms Psychiatric: Reports: No Symptoms - Patient Data Vitals - Most Recent: Last Vital Signs Temp 99.6 F 08/12/20 10:56 Pulse 72 08/12/20 10:56 Resp 16 08/12/20 10:56 BP 119/55 L 08/12/20 10:56 Pulse Ox 74 L 08/12/20 10:56 Weight - Most Recent: 195 lb 0.017 oz I&O - Last 24 hours: Intake & Output 08/11/20 08/12/20 08/12/20 22:59 06:59 14:59 Intake Total 1084 440 850 Output Total 900 300 Balance 184 140 850 LAM Results - Last 24 hrs: Microbiology 08/09/20 15:03 Aerobic Blood Culture - Preliminary Blood - Arm, Right NO GROWTH AFTER 2 DAYS Anaerobic Blood Culture - Preliminary NO GROWTH AFTER 2 DAYS 08/09/20 14:40 Aerobic Blood Culture - Preliminary Blood - Arm, Right NO GROWTH AFTER 2 DAYS Anaerobic Blood Culture - Preliminary NO GROWTH AFTER 2 DAYS Med Orders - Current: Current Medications Acetaminophen (Tylenol) 650 mg PO Q4H PRN PRN Reason: Fever Last Admin: 08/10/20 11:47 Dose: 650 mg Documented by: Albuterol/Ipratropium (Duoneb 3.0-0.5 Mg/3 Ml) 3 ml NEB QIDRT [facility] Last Admin: 08/12/20 10:52 Dose: 3 ml Documented by: Budesonide (Pulmicort) 0.25 mg INH BIDRT [facility] Last Admin: 08/12/20 07:13 Dose: 0.25 mg Documented by: Lidocaine HCl 30 ml/ Al Hydroxide/Mg Hydroxide 30 ml/Diphenhydramine HCl 75 mg 0 ml PO Q4H PRN PRN Reason: MOUTH CARE Last Admin: 08/11/20 07:41 Dose: 15 ml Documented by: Al Hydroxide/Mg Hydroxide 15 (ml/ Lidocaine HCl 15 ml) 0 ml PO Q4H PRN PRN Reason: GI upset Last Admin: 08/11/20 15:52 Dose: 30 ml Documented by: Hydromorphone HCl (Dilaudid) 0.5 - 1 mg IVPUSH Q4H PRN PRN Reason: Pain Last Admin: 08/10/20 11:48 Dose: 1 mg Documented by: Dextrose/Sodium Chloride (Dextrose 5%-Normal Saline) 1,000 mls @ 100 mls/hr IV ASDIRECTED [facility] Last Admin: 08/10/20 15:16 Dose: 100 mls/hr Documented by: Ondansetron HCl (Zofran) 4 mg IVPUSH Q4H PRN PRN Reason: Nausea/Vomiting Last Admin: 08/09/20 20:17 Dose: 4 mg Documented by: Pantoprazole Sodium (Protonix) 40 mg PO BIDAC [facility] Last Admin: 08/12/20 07:39 Dose: 40 mg Documented by: Pramipexole 1 Mg (Tablet Own Med) 0 each PO BID [facility] Last Admin: 08/12/20 09:19 Dose: 0.5 each Documented by: Meclizine 25 Mg Chewable Tablet Own Med 0 each CHEW BID [facility] Last Admin: 08/12/20 09:18 Dose: 1 each Documented by: Discontinued Medications Albuterol (Proventil Neb Soln) 1.25 mg INH BIDRT [facility] Last Admin: 08/10/20 10:49 Dose: 1.25 mg Documented by: Albuterol (Proventil Neb Soln) 2.5 mg NEB Q4H PRN PRN Reason: SOB, wheezing Fentanyl (Sublimaze) 50 mcg IVPUSH ONETIME ONE Stop: 08/09/20 14:42 Last Admin: 08/09/20 15:10 Dose: 50 mcg Documented by: Fentanyl (Sublimaze) 50 mcg IVPUSH ONETIME ONE Stop: 08/09/20 16:51 Last Admin: 08/09/20 16:57 Dose: 50 mcg Documented by: Fentanyl (Sublimaze) Confirm Administered Dose 100 mcg .ROUTE .STK-MED ONE Stop: 08/10/20 07:46 Hydromorphone HCl (Dilaudid) 0.5 mg IVPUSH ONETIME ONE Stop: 08/10/20 14:16 Last Admin: 08/10/20 14:03 Dose: 0.5 mg Documented by: Lactated Ringer's (Ringers, Lactated) 1,000 mls @ 999 mls/hr IV ASDIRECTED [facility] Last Admin: 08/09/20 15:11 Dose: 999 mls/hr Documented by: Sodium Chloride (Normal Saline) 100 mls @ 3 mls/sec IV ASDIRECTED [facility] Last Admin: 08/09/20 15:47 Dose: 3 mls/sec Documented by: Lactated Ringer's (Ringers, Lactated) 1,000 mls @ 999 mls/hr IV BOLUS ONE Stop: 08/09/20 17:29 Last Admin: 08/09/20 17:15 Dose: 999 mls/hr Documented by: Iopamidol (Isovue-300 (61%)) 100 ml IV . DIRECTED [facility] Last Admin: 08/09/20 15:47 Dose: 100 ml Documented by: Ketorolac Tromethamine (Toradol) 60 mg IM Q8H PRN PRN Reason: Pain Stop: 08/14/20 20:02 Meclizine HCl (Antivert) 25 mg PO BID [facility] Last Admin: 08/10/20 09:19 Dose: Not Given Documented by: Ondansetron HCl (Zofran) 4 mg IVPUSH ONETIME ONE Stop: 08/09/20 14:42 Last Admin: 08/09/20 15:11 Dose: 4 mg Documented by: Pramipexole Dihydrochloride (Mirapex) 0.75 mg PO BID [facility] Last Admin: 08/10/20 09:28 Dose: 0.75 mg Documented by: Pramipexole Dihydrochloride (Mirapex) 0.5 mg PO BID [facility] Propofol (Diprivan 20 Ml) Confirm Administered Dose 200 mg .ROUTE .STK-MED ONE Stop: 08/10/20 07:46 Sodium Chloride (Saline Flush) 10 ml FLUSH ONETIME ONE Stop: 08/09/20 14:56 Last Admin: 08/09/20 15:46 Dose: 10 ml Documented by: - Exam General: Reports: Alert, Oriented HEENT: Reports: Pupils Equal, Pupils Reactive, EOMI, Mucous Membr. Moist/[place] Neck: Reports: Supple Cardiovascular: Reports: Regular Rate, Regular Rhythm GI/Abdominal Exam: Normal Bowel Sounds, Soft, Non-Tender, No Organomegaly, No Distention, No Abnormal Bruit, No Mass, Pelvis Stable Extremities: Normal Inspection, Normal Range of Motion, Non-Tender, No Pedal Edema, Normal Capillary Refill Skin: Reports: Warm Psy/Mental Status: Reports: Alert, Normal Affect, Normal Mood
== END 2020-08-12 14:15 | disposition home or self-care (01) ==
LOC: JP.ED 13:25 → JP.MS 18:12
PROVIDERS: ADMIT Internal Medicine; ATTEND Internal Medicine
DX: K20.90 Esophagitis, unspecified without bleeding (principal); K22.8 Other specified diseases of esophagus; E86.0 Dehydration; E78.00 Pure hypercholesterolemia, unspecified; I10 Essential (primary) hypertension; J44.9 Chronic obstructive pulmonary disease, unspecified; G47.30 Sleep apnea, unspecified; H81.09 Meniere's disease, unspecified ear; Z01.812 Encounter for preprocedural laboratory examination; Z20.822 Contact with and (suspected) exposure to COVID-19; Z86.718 Personal history of other venous thrombosis and embolism; Z85.46 Personal history of malignant neoplasm of prostate; Z87.891 Personal history of nicotine dependence; Z79.899 Other long term (current) drug therapy; Z90.79 Acquired absence of other genital organ(s); Z98.890 Other specified postprocedural states
CPT/HCPCS: 0241U; 36415; 71046; 71046-26; 74177; 80048; 80053; 81001; 82271; 83605; 84145; 84484; 85025; 86140; 87040; 88305; 93005; 94640; 96374; 96375; 96376; 99284; 99285-25; A9270-GY; G0378; J1170; J2405; J2704; J3010; J7120; J7620-GY; Q9967

== ENCOUNTER 2021-03-08 11:04 | Emergency (ER) | payer MEDICARE, OTHER ==
[2021-03-08] MEDS ORDERED: Meclizine 25 MG Tab PO ONE (11:26)
--- NOTE | 2021-03-08 11:31 | EDM.PDOC ---
ED HPI GENERAL MEDICAL PROBLEM - General Chief Complaint: Cardiovascular Problem Stated Complaint: REALLY DIZZY LAST NIGHT Time Seen by Provider: 03/08/21 11:15 Source of Information: Reports: Patient, Family, Old Records, RN History Limitations: Reports: No Limitations - History of Present Illness INITIAL COMMENTS - FREE TEXT/NARRATIVE: 80 yo male was sitting in his vehicle yesterday and experienced sudden onset of vertigo with nausea. Sx's lasted only a few seconds. Today he notes that he veers off to the left when he tries to walk, otherwise he feels fine. There was no chest pain. [facility]. Onset: Sudden Onset Date: 03/07/21 Duration: Minutes: (less than 1 minute), Improving (much diminished sx's now) Location: Reports: Head Quality: Reports: Other (no pain) Severity: Mild Improves with: Reports: Rest Worsens with: Reports: Other (walking) Context: Reports: Other (See HPI) Associated Symptoms: Reports: No Other Symptoms Treatments PROCESS PLANNER: Reports: Other (see below) (none) - Related Data Allergies Allergy/AdvReac Type Severity Reaction Status Date / Time No Known Allergies Allergy Verified 03/08/21 11:09 Home Meds: Home Meds Meclizine [Antivert] 25 mg PO BID 12/14/16 [History] HCTZ/Triamterene [Maxzide 25-37.5 MG] 1 tab PO DAILY PRN 11/23/18 [History] Leuprolide [Lupron Depot 3-Month] 22.5 mg IM Q6M 11/23/18 [History] Sennosides/Docusate Sodium [Docusate Sodium-Senna Tablet] 1 tab PO BID 11/23/18 [History] Albuterol Sulfate 1 ampule INH BID 08/09/20 [History] Budesonide [Pulmicort] 1 ampule INH DAILY 08/09/20 [History] Pramipexole Di-HCl [Mirapex] 0.5 mg PO BID 08/10/20 [History] Past Medical History HEENT History: Reports: Cataract, Hard of Hearing, Impaired Vision Cardiovascular History: Reports: Blood Clots/VTE/DVT, High Cholesterol, Hypertension, Pacemaker, SOB on Exertion Other Cardiovascular History: blood clot removed from leg -football injury Respiratory History: Reports: Bronchitis, Recurrent, COPD, Sleep Apnea, SOB Gastrointestinal History: Reports: GI Bleed, Hemorrhoids Genitourinary History: Reports: Prostate Disorder Musculoskeletal History: Reports: Fracture Other Musculoskeletal History: restless leg syndrome Neurological History: Reports: Concussion, Vertigo Other Neuro History: meneires, restless leg syndrome Psychiatric History: Reports: Anxiety Hematologic History: Reports: Blood Transfusion(s) Oncologic (Cancer) History: Reports: Prostate Dermatologic History: Reports: Eczema - Infectious Disease History Infectious Disease History: Reports: Chicken Pox, Measles, Mumps, Pertussis (Whooping Cough) - Past Surgical History Head Surgeries/Procedures: Reports: None HEENT Surgical History: Reports: Cataract Surgery, Other (See Below) Other HEENT Surgeries/Procedures: ear surgery Cardiovascular Surgical History: Reports: None Respiratory Surgical History: Reports: None GI Surgical History: Reports: Colonoscopy, Hernia, Inguinal Other GI Surgeries/Procedures: fissure Male Surgical History: Reports: Prostatectomy Neurological Surgical History: Reports: None Musculoskeletal Surgical History: Reports: None Oncologic Surgical History: Reports: None Other Oncologic Surgeries/Procedures: prostectomy Dermatological Surgical History: Reports: None Social & Family History - Family History Family Medical History: Unobtainable - Tobacco Use Tobacco Use Status *Q: Former Tobacco User Used Tobacco, but Quit: Yes Month/Year Tobacco Last Used: 1999 - Caffeine Use Caffeine Use: Reports: None - Recreational Drug Use Recreational Drug Use: No ED ROS GENERAL - Review of Systems Review Of Systems: See Below Constitutional: Reports: No Symptoms HEENT: Reports: No Symptoms, Vertigo (briefly yesterday) Respiratory: Reports: No Symptoms Cardiovascular: Reports: No Symptoms GI/Abdominal: Reports: Nausea (yesterday briefly, not today) : Reports: No Symptoms Musculoskeletal: Reports: No Symptoms Skin: Reports: No Symptoms Neurological: Reports: Other (veers to the left unless he holds on today) ED EXAM, GENERAL - Physical Exam Exam: See Below Exam Limited By: No Limitations General Appearance: Alert, WD/WN, No Apparent Distress Eye Exam: Bilateral Eye: EOMI, Normal Inspection, PERRL Ears: Normal External Exam, Normal Canal, Hearing Grossly Normal, Normal TMs Ear Exam: Bilateral Ear: Auricle Normal, Canal Normal, TM normal Nose: Normal Inspection, No Blood Throat/Mouth: Normal Inspection, Normal Lips, Normal Oropharynx, Normal Voice, No Airway Compromise Head: Atraumatic, Normocephalic Neck: Normal Inspection Respiratory/Chest: No Respiratory Distress, Lungs Clear, Normal Breath Sounds, No Accessory Muscle Use Cardiovascular: Regular Rate, Rhythm, No Edema GI/Abdominal: Soft, Non-Tender Extremities: Normal Inspection Neurological: Alert, Oriented, CN II-XII Intact, Normal Cognition, No Motor/Sensory Deficits Psychiatric: Normal Affect, Normal Mood Skin Exam: Warm, Dry, Intact, Normal Color, No Rash Course - Vital Signs Last Recorded V/S: Last Vital Signs Temp 36.1 C 03/08/21 11:14 Pulse 78 03/08/21 11:14 Resp 15 03/08/21 11:14 BP 132/85 03/08/21 11:14 Pulse Ox 95 03/08/21 11:14 - Orders/Labs/Meds Orders: Active Orders 24 hr Category Date Time Status Cardiac Monitoring [RC] .As Directed Care 03/08/21 11:20 Active Meds: Medications Discontinued Medications Generic Name Dose Route Start Last Admin Trade Name Rupertoq PRN Reason Stop Dose Admin Meclizine HCl 25 mg 03/08/21 11:26 03/08/21 11:46 Meclizine 25 Mg Tab PO 03/08/21 11:27 25 mg ONETIME ONE Administration - Re-Assessments/Exams Free Text/Narrative Re-Assessment/Exam: 03/08/21 12:39 Feels and ambulates better after meclizine Departure - Departure Time of Disposition: 12:39 Disposition: Home, Self-Care 01 Condition: Good Clinical Impression: Vertigo Instructions: Vertigo Referrals: Brett Solis Sr, MD [Primary Care Provider] - Forms: ED Department Discharge Additional Instructions: Use meclizine as needed every 6 hrs for dizziness. F/U with your doctor as needed. Sepsis Event Note (ED) - Focused Exam Vital Signs: Vital Signs Temp Pulse Resp BP Pulse Ox 03/08/21 11:14 36.1 C 78 15 132/85 95 03/08/21 11:10 36.1 C 78 15 132/85 95 - My Orders Last 24 Hours: My Active Orders 03/08/21 11:20 Cardiac Monitoring [RC] .As Directed - Assessment/Plan Last 24 Hours: My Active Orders 03/08/21 11:20 Cardiac Monitoring [RC] .As Directed
[2021-03-08 11:36] VITALS: BP 132/85; PULSE 78
== END 2021-03-08 13:06 | disposition home or self-care (01) ==
LOC: JP.ED 11:04
DX: R42 Dizziness and giddiness (principal); E78.00 Pure hypercholesterolemia, unspecified; I10 Essential (primary) hypertension; J44.9 Chronic obstructive pulmonary disease, unspecified; Z95.0 Presence of cardiac pacemaker; Z87.891 Personal history of nicotine dependence
CPT/HCPCS: 99283; A9270

== ENCOUNTER 2021-11-16 14:54 | Emergency (ER) | payer MEDICARE ==
[2021-11-16 15:11] VITALS: BP 127/72; PULSE 71
[2021-11-16] MEDS ORDERED: Ketorolac 30 MG/ML SDV IM ONE (15:37)
[2021-11-16] MEDS ORDERED: fentaNYL 100 MCG/2 ML SDV IM ONE (16:21)
== END 2021-11-16 17:22 | disposition home or self-care (01) ==
LOC: JP.ED 14:54
DX: S42.295A Other nondisplaced fracture of upper end of left humerus, initial encounter for closed fracture (principal); J44.9 Chronic obstructive pulmonary disease, unspecified; I10 Essential (primary) hypertension; Z79.899 Other long term (current) drug therapy; W20.8XXA Other cause of strike by thrown, projected or falling object, initial encounter
CPT/HCPCS: 73030; 96372; 99283; J1885; J3010

== ENCOUNTER 2022-01-28 11:16 | Emergency (ER) | payer OTHER, MEDICARE ==
[2022-01-28] MEDS ORDERED: Sodium Chloride 0.9% 10 ML Syringe FLUSH PRN (11:18)
[2022-01-28] MEDS ORDERED: methylPREDNISolone Sodium Succinate 125 MG/2 ML SDV IVPUSH ONE (12:22)
[2022-01-28] MEDS ORDERED: Albuterol/Ipratropium 3.0-0.5 MG/3 ML Neb Soln NEB ONE (12:22)
[2022-01-28] MEDS ORDERED: Albuterol/Ipratropium 4 GM Inhalation Spray INH ONE (12:24)
[2022-01-28] MEDS ORDERED: Potassium Chloride 20 MEQ Tab.ER PO ONE (13:27)
[2022-01-28] MEDS ORDERED: predniSONE 20 MG Tab PO ONE (14:41)
[2022-01-28] MEDS ORDERED: EPINEPHrine 1 MG/ML SDV IM PRN ×2 (14:43→16:00)
[2022-01-28] MEDS ORDERED: methylPREDNISolone Sodium Succinate 125 MG/2 ML SDV IVPUSH PRN ×2 (14:43→16:00)
[2022-01-28] MEDS ORDERED: Famotidine 20 MG/2 ML SDV IVPUSH PRN (14:43)
[2022-01-28] MEDS ORDERED: diphenhydrAMINE 50 MG/ML SDV IVPUSH PRN ×2 (14:43→16:00)
[2022-01-28] MEDS ORDERED: Sodium Chloride 0.9% 10 ML Syringe FLUSH SCH (14:45)
[2022-01-28] MEDS ORDERED: Famotidine 20 MG/2 ML SDV IV PRN (16:00)
[2022-01-28] MEDS ORDERED: Acetaminophen 325 MG Tab PO PRN (16:00)
[2022-01-28 16:06] VITALS: BP 108/52; PULSE 81
== END 2022-01-28 17:05 | disposition home or self-care (01) ==
LOC: JP.ED 11:16
DX: U07.1 COVID-19 (principal); J44.1 Chronic obstructive pulmonary disease with (acute) exacerbation; R09.02 Hypoxemia; E87.6 Hypokalemia; E78.00 Pure hypercholesterolemia, unspecified; I10 Essential (primary) hypertension; Z95.0 Presence of cardiac pacemaker
CPT/HCPCS: 36415; 36600; 71045; 80048; 82803; 84145; 85025; 86140; 94640; 96374; 99285; A9270; J2930; J7512; M0222; Q0222

== ENCOUNTER 2022-04-18 19:23 | Emergency (ER) | payer OTHER, MEDICARE ==
[2022-04-18 20:06] VITALS: BP 127/78; PULSE 76
== END 2022-04-18 22:15 | disposition home or self-care (01) ==
LOC: JP.ED 19:23
DX: S39.011A Strain of muscle, fascia and tendon of abdomen, initial encounter (principal); E78.00 Pure hypercholesterolemia, unspecified; I10 Essential (primary) hypertension; J44.9 Chronic obstructive pulmonary disease, unspecified; Z95.0 Presence of cardiac pacemaker; Z86.16 Personal history of COVID-19; Z79.899 Other long term (current) drug therapy; Z87.891 Personal history of nicotine dependence
CPT/HCPCS: 74176; 99283

== ENCOUNTER 2022-05-27 10:55 | Emergency (ER) | payer OTHER ==
[2022-05-27] MEDS ORDERED: fentaNYL 100 MCG/2 ML SDV IM ONE (13:28)
[2022-05-27] MEDS ORDERED: HYDROmorphone 1 MG/ML Syringe IVPUSH ONE (16:30)
[2022-05-27] MEDS ORDERED: Sodium Chloride 0.9% 10 ML Syringe FLUSH PRN (16:30)
[2022-05-27] MEDS ORDERED: Iopamidol 755 Mg/ML 100 ML Bottle IV SCH (17:15)
[2022-05-27] MEDS ORDERED: Sodium Chloride 0.9% 75 ML IV SCH (17:15)
[2022-05-27] MEDS ORDERED: HYDROmorphone 0.5 MG/0.5 ML Syringe IM ONE (19:29)
[2022-05-27 19:42] VITALS: PULSE 69
[2022-05-27 20:14] VITALS: BP 100/76
[2022-05-27] MEDS ORDERED: Ketorolac 30 MG/ML SDV IM ONE (20:20)
== END 2022-05-27 21:18 | disposition home or self-care (01) ==
LOC: JP.ED 10:55
DX: M62.838 Other muscle spasm (principal); I10 Essential (primary) hypertension; E78.00 Pure hypercholesterolemia, unspecified; J44.9 Chronic obstructive pulmonary disease, unspecified; Z79.899 Other long term (current) drug therapy
CPT/HCPCS: 36415; 70450; 70496; 70498; 72125; 80048; 83605; 85025; 96372; 96374; 99284; J1170; J1885; J3010; J3490; Q9967

== ENCOUNTER 2022-07-21 12:35 | Emergency (ER) | payer OTHER, MEDICARE ==
[2022-07-21] MEDS ORDERED: Albuterol/Ipratropium 3.0-0.5 MG/3 ML Neb Soln NEB ONE (13:31)
[2022-07-21] MEDS ORDERED: predniSONE 20 MG Tab PO ONE (13:32)
[2022-07-21] MEDS ORDERED: Doxycycline 100 MG Cap PO ONE (13:32)
[2022-07-21] MEDS ORDERED: Sodium Chloride 0.9% 10 ML Syringe FLUSH PRN (13:39)
[2022-07-21] MEDS ORDERED: Sodium Chloride 0.9% 500 ML IV ONE (13:40)
[2022-07-21 14:57] VITALS: BP 141/78; PULSE 70
== END 2022-07-21 15:15 ==
LOC: JP.ED 12:35
DX: J44.1 Chronic obstructive pulmonary disease with (acute) exacerbation (principal); N17.9 Acute kidney failure, unspecified; E78.00 Pure hypercholesterolemia, unspecified; I10 Essential (primary) hypertension; Z95.0 Presence of cardiac pacemaker; Z87.891 Personal history of nicotine dependence; Z85.46 Personal history of malignant neoplasm of prostate; Z77.090 Contact with and (suspected) exposure to asbestos; Z77.098 Contact with and (suspected) exposure to other hazardous, chiefly nonmedicinal, chemicals
CPT/HCPCS: 71045; 94640; 99285; A9270; J3490; J7040; J7512; J7620